=== PATIENT | female | born 1935 | race Caucasian/White ===

== ENCOUNTER 2017-03-14 09:40 | Emergency (ER) | payer MEDICARE ==
[2017-03-14 10:57] LABS: Basophils % (Auto) 0.3 % (0.0-1.8); Eosinophils % (Auto) 1.6 % (0.0-4.3); Hematocrit 38.4 % (30.3-42.9); Hemoglobin 12.8 gm/dl (10.1-14.3); Mean Corpuscular HGB Conc 33 % (30-34); Mean Corpuscular Hemoglobin 32 pg (28-32); Mean Corpuscular Volume 97 fl (79-97); Platelet Count 308 K/mm3 (140-440); Red Blood Count 3.97 M/mm3 (3.65-5.03); Red Cell Distribution Width 13.6 % (13.2-15.2); White Blood Count 5.9 K/mm3 (4.5-11.0)
[2017-03-14] MEDS ORDERED: KEPPRA 1,000 MG/NS 0.75% 100ML 1,000 MG/100 ML BAG IV ONE (11:06)
[2017-03-14] MEDS ORDERED: NACL 0.9% 1000 ML 1,000 ML IV ONE (11:06)
[2017-03-14 11:09] LABS: Bilirubin,Urine NEG (Negative); Blood,Urine NEG (Negative); Ketones,Urine NEG (Negative); Leukocyte Esterase,Urine NEG (Negative); Mucus,Urine FEW /HPF; Nitrite,Urine NEG (Negative); Protein,Urine <15 mg/dL mg/dL (Negative); Urobilinogen,Urine < 2.0 mg/dL (<2.0)
[2017-03-14 11:11] LABS: Albumin 3.7 g/dL (3.9-5); Albumin/Globulin Ratio 0.8 %; BUN/Creatinine Ratio 9.25; Bilirubin,Total 0.4 mg/dL (0.1-1.2); Calcium 9.8 mg/dL (8.4-10.2); Chloride 99.1 mmol/L (98-107); Potassium 3.7 mmol/L (3.6-5.0); Total Protein 8.1 g/dL (6.3-8.2)
--- NOTE | 2017-03-14 11:12 | Emergency Department Report ---
ED Seizure HPI - General Chief Complaint: Seizure Stated Complaint: SEIZURE Time Seen by Provider: 03/14/17 11:01 Source: patient, family, EMS Mode of arrival: Stretcher Limitations: Physical Limitation - History of Present Illness Initial Comments: 82-year-old female here with complaint of new onset seizure. According to son patient was not on wall and he went to her bedroom to see what was happening to her and he noticed that she was shaking. He describes a tonic-clonic shaking that lasted for approximately 5 minutes. After this she was difficult to arouse with sonorous respirations. She did urinate on herself. She complains of a mild headache. She's never had a seizure before. No recent trauma. No fevers chills. MD Complaint: seizure -: Sudden Description of Episode: loss of consciousness, tonic-clonic movement, bladder incontinence, post-event confusion -: minutes(s) Witnessed:: Yes Trauma: No Seizure History: none Place: home Possible Precipitating Event: none Associated Symptoms: confusion Treatments Prior to Arrival: none - Related Data Previous Rx's Medication Instructions Recorded Last Taken Type levETIRAcetam [Keppra TAB] 500 mg PO BID #60 tablet 03/14/17 Unknown Rx Allergies Allergy/AdvReac Type Severity Reaction Status Date / Time No Known Allergies Allergy Unverified 03/14/17 10:25 ED Review of Systems ROS: Stated complaint: SEIZURE Other details as noted in HPI Comment: All other systems reviewed and negative Constitutional: weakness. denies: chills, fever Eyes: denies: eye pain, eye discharge, vision change ENT: denies: ear pain, throat pain Respiratory: denies: cough, shortness of breath, wheezing Cardiovascular: denies: chest pain, palpitations Endocrine: no symptoms reported Gastrointestinal: denies: abdominal pain, nausea, diarrhea Genitourinary: denies: urgency, dysuria, discharge Musculoskeletal: denies: back pain, joint swelling, arthralgia Skin: denies: rash, lesions Neurological: headache. denies: weakness, paresthesias Psychiatric: denies: anxiety, depression Hematological/Lymphatic: denies: easy bleeding, easy bruising ED Past Medical Hx - Past Medical History Previous Medical History?: Yes Hx Congestive Heart Failure: Yes - Family History Family history: no significant - Social History Smoking Status: Never Smoker Substance Use Type: None - Medications Home Medications: Home Medications Medication Instructions Recorded Confirmed Last Taken Type levETIRAcetam [Keppra TAB] 500 mg PO BID #60 tablet 03/14/17 Unknown Rx ED Physical Exam - General Limitations: Physical Limitation General appearance: alert, in no apparent distress - Head Head exam: Present: atraumatic, normocephalic - Eye Eye exam: Present: normal appearance, PERRL, EOMI. Absent: scleral icterus - ENT ENT exam: Present: mucous membranes moist - Neck Neck exam: Present: normal inspection - Respiratory Respiratory exam: Present: normal lung sounds bilaterally. Absent: respiratory distress - Cardiovascular Cardiovascular Exam: Present: regular rate, normal rhythm, normal heart sounds. Absent: systolic murmur, diastolic murmur, rubs, gallop - GI/Abdominal GI/Abdominal exam: Present: soft, normal bowel sounds - Extremities Exam Extremities exam: Present: normal inspection - Back Exam Back exam: Present: normal inspection - Neurological Exam Neurological exam: Present: alert, oriented X3 - Psychiatric Psychiatric exam: Present: normal affect, normal mood - Skin Skin exam: Present: warm, dry, intact, normal color. Absent: rash ED Course Vital Signs 03/14/17 03/14/17 03/14/17 10:11 10:18 10:21 Temperature 98.4 F Pulse Rate 95 H 90 Respiratory 20 31 H Rate Blood Pressure 124/59 124/59 Blood Pressure 124/59 [Left] O2 Sat by Pulse 97 99 98 Oximetry 03/14/17 03/14/17 03/14/17 10:30 10:41 10:51 Temperature Pulse Rate 86 85 81 Respiratory 33 H 22 24 Rate Blood Pressure 118/57 118/57 118/57 Blood Pressure [Left] O2 Sat by Pulse 97 96 97 Oximetry 03/14/17 03/14/17 03/14/17 11:00 11:11 11:21 Temperature Pulse Rate 78 78 77 Respiratory 21 18 15 Rate Blood Pressure 117/61 117/61 117/61 Blood Pressure [Left] O2 Sat by Pulse 99 99 100 Oximetry 03/14/17 03/14/17 03/14/17 11:30 11:41 12:05 Temperature Pulse Rate 76 86 84 Respiratory 18 14 15 Rate Blood Pressure 117/57 117/57 117/57 Blood Pressure [Left] O2 Sat by Pulse 100 98 Oximetry 03/14/17 12:11 Temperature Pulse Rate 83 Respiratory 22 Rate Blood Pressure 117/57 Blood Pressure [Left] O2 Sat by Pulse 97 Oximetry ED Medical Decision Making - Lab Data Result diagrams: 03/14/17 10:40 03/14/17 10:40 Laboratory Results - last 24 hr 03/14/17 03/14/17 03/14/17 10:40 10:40 10:45 WBC 5.9 RBC 3.97 Hgb 12.8 Hct 38.4 MCV 97 MCH 32 MCHC 33 RDW 13.6 Plt Count 308 Lymph % (Auto) 28.3 [place] % (Auto) 13.5 H Eos % (Auto) 1.6 Baso % (Auto) 0.3 Lymph # 1.7 [place] # 0.8 Eos # 0.1 Baso # 0.0 Seg Neutrophils % 56.3 Seg Neutrophils # 3.3 Sodium 139 Potassium 3.7 Chloride 99.1 Carbon Dioxide 18 L Anion Gap 26 BUN 25 H Creatinine 2.7 H Estimated GFR 17 BUN/Creatinine Ratio 9.25 Glucose 112 H Calcium 9.8 Total Bilirubin 0.40 AST 20 ALT 12 Alkaline Phosphatase 51 Total Protein 8.1 Albumin 3.7 L Albumin/Globulin Ratio 0.8 Urine Color Yellow Urine Turbidity Clear Urine pH 5.0 Ur Specific [place] 1.020 Urine Protein <15 mg/dl Urine Glucose (UA) Neg Urine Ketones Neg Urine Blood Neg Urine Nitrite Neg Urine Bilirubin Neg Urine Urobilinogen < 2.0 Ur Leukocyte Esterase Neg Urine WBC (Auto) 1.0 Urine RBC (Auto) 1.0 U Epithel Cells (Auto) < 1.0 Hyaline Casts 5 Urine Mucus Few - EKG Data -: EKG Interpreted by Me - EKG Data 03/14/17 11:14 Sinus rate A7 normal axis normal intervals poor R-wave progression occasional PAC no ST segment changes she does have T-wave inversions in lead III - Medical Decision Making 82-year-old female here with new onset seizure. She's never had a seizure before. Exam here is unremarkable. No fevers chills nausea vomiting. Plan the head CT disc labs UA and anticipated admission given new onset seizure and 80-year-old. Workup unremarkable. Patient does have an elevated creatinine. Discussed with the patient and she has a known history of chronic renal insufficiency. Her head CT shows some chronic changes with age but nothing acute. Patient was an 80-year-old female with first-time seizure. She has no obvious precipitating cause. Head CT negative. Plan to discharge her home with follow- up to neurology. Plan to discharge the patient on oral Keppra. Portions of this chart were dictated with dictation software. There may be dictation errors contained within this note. Critical care attestation.: If time is entered above; I have spent that time in minutes in the direct care of this critically ill patient, excluding procedure time. ED Disposition Clinical Impression: Seizure Disposition: DC-01 TO HOME OR SELFCARE Is pt being admited?: No Condition: Stable Instructions: New-Onset Seizure in Adults (ED) Prescriptions: levETIRAcetam [Keppra TAB] 500 mg PO BID #60 tablet Referrals: PRIMARY CARE, [Primary Care Provider] - 3-5 Days BEN LAMBERT MD [Staff Physician] - 3-5 Days
--- NOTE | 2017-03-14 12:50 | Cat Scan Report ---
CT HEAD WITHOUT CONTRAST: HISTORY: Seizure. TECHNIQUE: Sequential CT images without contrast. FINDINGS: Non-contrast CT of the head is submitted demonstrating central and cortical atrophy. There are low density changes in the periventricular white matter. There is no intracranial hemorrhage or mass effect. There is no shift of the midline. Basilar cisterns are patent. The included portions of the paranasal sinuses and mastoid air cells are clear. IMPRESSION: Senescent changes as noted. No acute intracranial process.
[2017-03-14 16:07] VITALS: BP 120/64
== END 2017-03-14 16:15 | disposition home or self-care (01) ==
LOC: EDSEX → ED 09:40
DX: R56.9 Unspecified convulsions (principal); I50.9 Heart failure, unspecified
CPT/HCPCS: 36415; 70450; 80053; 81001; 84484; 85025; 93005; 93010; 96361; 96374; 99285; G0480; J1953; J7030; 80320

== ENCOUNTER 2018-04-21 11:00 | Inpatient (IN) | payer MEDICARE ==
[2018-04-21] MEDS ORDERED: CARDIZEM IV ONE (11:25)
[2018-04-21 11:39] LABS: Basophils % (Auto) 0.6 % (0.0-1.8); Eosinophils # (Auto) 0.1 K/mm3 (0.0-0.4); Eosinophils % (Auto) 1.9 % (0.0-4.3); Hematocrit 42.9 % (30.3-42.9); Hemoglobin 14.5 gm/dl (10.1-14.3); Lymphocytes # (Auto) 1.9 K/mm3 (1.2-5.4); Lymphocytes % (Auto) 39.1 % (13.4-35.0); Mean Corpuscular HGB Conc 34 % (30-34); Mean Corpuscular Hemoglobin 33 pg (28-32); Mean Corpuscular Volume 97 fl (79-97); Monocytes # (Auto) 0.5 K/mm3 (0.0-0.8); Platelet Count 263 K/mm3 (140-440); Red Blood Count 4.41 M/mm3 (3.65-5.03)
[2018-04-21 11:49] LABS: INR 3.56 (0.87-1.13)
[2018-04-21 11:50] LABS: Partial Thromboplastin Time 45.6 Sec. (24.2-36.6)
--- NOTE | 2018-04-21 11:54 | Emergency Department Report ---
HPI - General Time Seen by Provider: 04/21/18 11:16 - HPI HPI: 83 year-old female presents the emergency department by EMS from home with complaint of atrial fibrillation with RVR and some altered mental status. The patient is able to tell me her name and will follow some commands but does appear confused. There is a history of atrial fibrillation with RVR and CHF. The patient's daughter later came bedside and says that the patient has been having some falls, episodes of passing out or nearly passing out and some confusion since yesterday. He had one episode where she fell and questionably hit her head yesterday. This morning, the patient's daughter says that the patient suddenly started acting confused and had 2 episodes where she almost passed out and the daughter had to catch her. She then called EMS. 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 The family says that the patient would usually know the year and the president. ED Past Medical Hx - Past Medical History Hx Congestive Heart Failure: Yes - Social History Smoking Status: Never Smoker Substance Use Type: None - Medications Home Medications: Home Medications Medication Instructions Recorded Confirmed Last Taken Type Aspirin [Aspirin EC] 81 mg PO DAILY 04/21/18 04/21/18 Unknown History Cyanocobalamin (Vitamin B-12) 1,000 mcg PO DAILY 04/21/18 04/21/18 Unknown History [Vitamin B-12] Digoxin [Lanoxin] 0.125 mg PO DAILY 04/21/18 04/21/18 Unknown History Furosemide [Lasix] 20 mg PO QDAY 04/21/18 04/21/18 Unknown History Metoprolol [Lopressor] 100 mg PO DAILY 04/21/18 04/21/18 Unknown History Ondansetron [Zofran Odt] 4 mg PO Q8HR 04/21/18 04/21/18 Unknown History Ranitidine HCl [Zantac 150 MG TAB] 150 mg PO BID 04/21/18 04/21/18 Unknown History Sodium Bicarbonate 325 mg PO DAILY 04/21/18 04/21/18 Unknown History Warfarin Sodium [Coumadin] 3 mg PO QDAY 04/21/18 04/21/18 Unknown History ED Review of Systems ROS: Stated complaint: DIZZY/A FIB Other details as noted in HPI Comment: Unobtainable due to pts medical conditions Neurological: confusion Physical Exam - Physical Exam Physical Exam: GENERAL: The patient is well-developed well-nourished. HENT: Normocephalic. Atraumatic. Patient has moist mucous membranes. EYES: Extraocular motions are intact. Pupils equal reactive to light bilaterally. NECK: Supple. Trachea is midline. CHEST/LUNGS: Clear to auscultation. There is no respiratory distress noted. HEART/CARDIOVASCULAR: Irregular rhythm with rapid heart rate. ABDOMEN: Abdomen is soft, nontender. Patient has normal bowel sounds. There is no abdominal distention. SKIN: Skin is warm and dry. NEURO: The patient is awake and cooperative but confused. She is oriented to person but not place or time. She is unaware of the current president. Patient has some tangential and rambling thoughts/speech. MUSCULOSKELETAL: There is no tenderness or deformity. There is no limitation range of motion. There is no evidence of acute injury. ED Medical Decision Making - Lab Data Result diagrams: 04/21/18 11:21 04/21/18 11:21 - EKG Data -: EKG Interpreted by Me - EKG Data When compared to previous EKG there are: changes noted (previous EKG shows sinus rhythm with PVCs) Interpretation: other (atrial fibrillation, rate of 94, normal axis, normal intervals, Q waves to the septal leads) - Radiology Data Radiology results: report reviewed, image reviewed interpreted by me: Chest x-ray does not show any acute process. There are no pleural effusions, obvious pneumonia and there is no pneumothorax. EXAM: CT HEAD/BRAIN WO CON HISTORY: AMS TECHNIQUE: CT of the Head without IV contrast. PRIORS: None currently available. FINDINGS: Decreased attenuation regions in the periventricular and subcortical white matter are nonspecific and may represent small vessel ischemic disease, encephalopathy, edema, or a demyelinating process. Small vessel ischemic disease (leukoaroaiosis) favored. Vascular calcifications. There is no evidence for acute ischemia. There is no hemorrhage. There is no midline shift. There is no hydrocephalus. There is no mass. Age appropriate calvillo-white matter attenuation is noted. Psri-pm-xlsjaojc atrophy. Senescent bilateral basal ganglia calcifications. There is no calvarial fracture. The temporal bones demonstrate aerated mastoid air cells. The middle ears appear unremarkable. Moderate mucosal thickening in the left maxillary sinus. Mild mucosal thickening in both ethmoid sinuses. Globes are intact. IMPRESSION: No acute intracranial findings. Chronic ischemic disease. Atrophy, mild to moderate. Transcribed By: TYM Dictated By: CHIP HOYT MD Electronically Authenticated By: CHIP HOYT MD Signed Date/Time: 04/21/18 1313 - Medical Decision Making Patient came in with atrial fibrillation with RVR and altered mental status and confusion. The patient's rapid rate was Waxing and waning but she was given a dose of Cardizem and the rate now appears controlled but she is still in atrial fibrillation, which he appears to be chronically. She is anticoagulated and slightly supratherapeutic on her Coumadin. CT of the head did not show any bleed, shift, mass or any other acute process. The daughter confirms that the patient is confused from her baseline but she has been having some transient confusion and some episodes of passing out or nearly passing out, over the past 24 hours. For this reason, even if the patient were to have a CVA as the cause of her confusion, she would not be a TPA candidate as there is no last known well time and it seems to have been going on since at least yesterday. However the patient's main deficit is her confusion. We are awaiting urine for urinalysis and drug screen. She is subtherapeutic on her digoxin, has some renal insufficiency with an alleged history of chronic kidney disease. She will be admitted to the hospital for further evaluation and treatment and was accepted for admission by the hospitalist, Dr. Marie. - Differential Diagnosis dysrhythmia, CVA, TIA, UTI, dementia Critical Care Time: No Critical care attestation.: If time is entered above; I have spent that time in minutes in the direct care of this critically ill patient, excluding procedure time. ED Disposition Clinical Impression: Atrial fibrillation with RVR Altered mental status Qualifiers: Altered mental status type: unspecified Qualified Code(s): R41.82 - Altered mental status, unspecified Disposition: -09 OP ADMIT IP TO THIS HOSP Is pt being admited?: Yes Condition: Serious Referrals: PRIMARY CARE, [Primary Care Provider] - 3-5 Days Time of Disposition: 14:23
[2018-04-21 11:57] LABS: Alanine Aminotransferase 12 units/L (7-56); Albumin 3.7 g/dL (3.9-5); BUN/Creatinine Ratio 8; Blood Urea Nitrogen 16 mg/dL (7-17); Calcium 9.6 mg/dL (8.4-10.2); Hemolysis Index 15
--- NOTE | 2018-04-21 13:09 | XRay Report ---
AP CHEST: HISTORY: chest pain AP view of the chest demonstrates a normal mediastinal and cardiac contour with clear lungs and normal bony and soft tissue structures. IMPRESSION: Unremarkable AP chest.
--- NOTE | 2018-04-21 13:14 | Cat Scan Report ---
FINAL REPORT EXAM: CT HEAD/BRAIN WO CON HISTORY: AMS TECHNIQUE: CT of the Head without IV contrast. PRIORS: None currently available. FINDINGS: Decreased attenuation regions in the periventricular and subcortical white matter are nonspecific and may represent small vessel ischemic disease, encephalopathy, edema, or a demyelinating process. Small vessel ischemic disease (leukoaroaiosis) favored. Vascular calcifications. There is no evidence for acute ischemia. There is no hemorrhage. There is no midline shift. There is no hydrocephalus. There is no mass. Age appropriate calvillo-white matter attenuation is noted. Tbpy-rl-fajaglks atrophy. Senescent bilateral basal ganglia calcifications. There is no calvarial fracture. The temporal bones demonstrate aerated mastoid air cells. The middle ears appear unremarkable. Moderate mucosal thickening in the left maxillary sinus. Mild mucosal thickening in both ethmoid sinuses. Globes are intact. IMPRESSION: No acute intracranial findings. Chronic ischemic disease. Atrophy, mild to moderate.
--- NOTE | 2018-04-21 14:02 | History and Physical Report ---
History of Present Illness Chief complaint: I got dizzy, and i passed out History of present illness: 83 YO Female with Atrial Fib on therapeutic anticoagulation, CHF, CKD presents to ED for evaluation. Pt states that she has experienced weakness, multiple episodes of dizziness and near syncope over the past 1 day and subsequently lost consciousness today. EMS notified and upon arrival the patient was found to have Atrial Fib with RVR. Pt transported to [facility] for further care and evaluation. Pt seen and evaluated in ED and found to have Atrial Fib with RVR, as well as symptoms consistent with Diastolic CHF. Pt admitted to telemetry, and Cardiology team consulted in ED. Pt denies fever, chills, CP, NVD, Trauma, Palpitatons, BRBPR, Unintentional weight loss, night sweats, bone pain, productive cough, or recent ill contacts. Pt has also experienced episodes of bradycardia on digoxin resulting in dizziness and near syncope. Her dose has been held as per her physician. Pt subsequently developed Atrial fib with RVR. Past History Past Medical History: atrial fib, heart failure, renal failure Past Surgical History: No surgical history Social history: single, lives with family. denies: smoking, alcohol abuse, prescription drug abuse Family history: hypertension Medications and Allergies Allergies Allergy/AdvReac Type Severity Reaction Status Date / Time No Known Allergies Allergy Unverified 03/14/17 10:25 Home Medications Medication Instructions Recorded Confirmed Last Taken Type Aspirin [Aspirin EC] 81 mg PO DAILY 04/21/18 04/21/18 Unknown History Cyanocobalamin (Vitamin B-12) 1,000 mcg PO DAILY 04/21/18 04/21/18 Unknown History [Vitamin B-12] Digoxin [Lanoxin] 0.125 mg PO DAILY 04/21/18 04/21/18 Unknown History Furosemide [Lasix] 20 mg PO QDAY 04/21/18 04/21/18 Unknown History Metoprolol [Lopressor] 100 mg PO DAILY 04/21/18 04/21/18 Unknown History Ondansetron [Zofran Odt] 4 mg PO Q8HR 04/21/18 04/21/18 Unknown History Ranitidine HCl [Zantac 150 MG TAB] 150 mg PO BID 04/21/18 04/21/18 Unknown History Sodium Bicarbonate 325 mg PO DAILY 04/21/18 04/21/18 Unknown History Warfarin Sodium [Coumadin] 3 mg PO QDAY 04/21/18 04/21/18 Unknown History Review of Systems Constitutional: weakness, no weight loss, no weight gain, no fever, no chills Ears, nose, mouth and throat: no ear pain, no ear discharge, no tinnitis, no decreased hearing, no nose pain, no nasal congestion Breasts: no change in shape, no swelling, no mass Cardiovascular: syncope, no chest pain, no orthopnea, no palpitations, no rapid/ irregular heart beat, no edema Respiratory: no cough, no cough with sputum, no excessive sputum, no hemoptysis , no shortness of breath Gastrointestinal: no nausea, no vomiting, no diarrhea, no constipation, no change in bowel habits Genitourinary Female: no pelvic pain, no flank pain, no menorrhagia, no dysuria , no urinary frequency, no urgency Rectal: no pain, no incontinence, no bleeding Musculoskeletal: no neck stiffness, no neck pain, no shooting arm pain, no arm numbness/tingling, no low back pain, no shooting leg pain Integumentary: no rash, no pruritis, no redness, no sores, no wounds Neurological: no transient paralysis, no paralysis, no weakness, no parathesias , no numbness, no tingling, no seizures Psychiatric: no anxiety, no memory loss, no change in sleep habits, no sleep disturbances, no insomnia, no hypersomnia, no change in appetite Endocrine: no cold intolerance, no heat intolerance, no polyphagia, no excessive thirst, no polydipsia, no polyuria, no nocturia Hematologic/Lymphatic: no easy bruising, no easy bleeding, no lymphadenopathy, no lymphedema Allergic/Immunologic: no urticaria, no allergic rhinitis, no persistent infections, no anaphylaxis, no angioedema Exam - Constitutional Vitals: Temp Pulse Resp BP Pulse Ox 98.2 F 104 H 18 149/80 99 04/21/18 11:59 04/21/18 11:59 04/21/18 11:59 04/21/18 11:59 04/21/18 11:59 General appearance: Present: mild distress - EENT Eyes: Present: PERRL ENT: hearing intact, clear oral mucosa - Neck Neck: Present: supple, normal ROM - Respiratory Respiratory effort: normal Respiratory: bilateral: CTA - Cardiovascular Rhythm: irregularly irregular Heart Sounds: Present: S1 & S2. Absent: rub, click - Extremities Extremities: pulses symmetrical, No edema Peripheral Pulses: within normal limits - Abdominal General gastrointestinal: Present: soft, non-tender, non-distended, normal bowel sounds Female genitourinary: Present: normal - Integumentary Integumentary: Present: clear, warm, dry - Musculoskeletal Musculoskeletal: gait normal, strength equal bilaterally - Psychiatric Psychiatric: appropriate mood/affect, intact judgment & insight - Neurologic Neurologic: CNII-XII intact, no focal deficits, moves all extremities, gait normal Results - Labs CBC & Chem 7: 04/21/18 11:21 04/21/18 11:21 Labs: Abnormal lab results 04/21/18 04/21/18 04/21/18 Range/Units 11:21 11:21 11:21 Hgb 14.5 H (10.1-14.3) gm/dl MCH 33 H (28-32) pg RDW 16.0 H (13.2-15.2) % Lymph % (Auto) 39.1 H (13.4-35.0) % [place] % (Auto) 11.0 H (0.0-7.3) % PT 36.1 H (12.2-14.9) Sec. INR 3.56 H (0.87-1.13) APTT 45.6 H (24.2-36.6) Sec. Sodium 136 L (137-145) mmol/L Potassium 3.5 L (3.6-5.0) mmol/L Chloride 97.0 L (98-107) mmol/L Creatinine 1.9 H (0.7-1.2) mg/dL Glucose 117 H (65-100) mg/dL Albumin 3.7 L (3.9-5) g/dL Digoxin (0.9-2.0) ng/mL 04/21/18 Range/Units 11:21 Hgb (10.1-14.3) gm/dl MCH (28-32) pg RDW (13.2-15.2) % Lymph % (Auto) (13.4-35.0) % [place] % (Auto) (0.0-7.3) % PT (12.2-14.9) Sec. INR (0.87-1.13) APTT (24.2-36.6) Sec. Sodium (137-145) mmol/L Potassium (3.6-5.0) mmol/L Chloride (98-107) mmol/L Creatinine (0.7-1.2) mg/dL Glucose (65-100) mg/dL Albumin (3.9-5) g/dL Digoxin 0.6 L (0.9-2.0) ng/mL Assessment and Plan - Patient Problems (1) CHF (congestive heart failure) Current Visit: Yes Status: Acute Qualifiers: Heart failure type: diastolic Heart failure chronicity: acute on chronic Qualified Code(s): I50.33 - Acute on chronic diastolic (congestive) heart failure Plan to address problem: Admit to telemetry, BNP, Chest x ray, strict I/O, Thyroid Panel, serial ekg, cardiology consulted in ED, echo, (2) Syncope Current Visit: Yes Status: Acute Plan to address problem: Cardiogenic syncope: admit to telemetry, CT head, neuro checks, supportive care. (3) Atrial fibrillation with RVR Current Visit: Yes Status: Acute Plan to address problem: Rate control, telemetry monitoring, resume digoxin, continue therapeutic anticoagulation with pharmacy consulted for dosing, INR goal betweeen 2-3, coagulation profile. (4) ARF (acute renal failure) with tubular necrosis Current Visit: Yes Status: Acute Plan to address problem: IVF resuscitation, monitor uop q shift, urine electrolytes, renal ultrasound, repeat bmp in am to evaluate serum creatnine (5) DVT prophylaxis Current Visit: Yes Status: Acute Plan to address problem: SCD to BLE while in bed.
[2018-04-21] MEDS ORDERED: LANOXIN IV ONE (14:03)
[2018-04-21] MEDS ORDERED: SODIUM CHLORIDE FLUSH SYRINGE 10 ML IV PRN (14:04)
[2018-04-21] MEDS ORDERED: ZOFRAN IV PRN (14:04)
[2018-04-21] MEDS ORDERED: PROVENTIL IH PRN (14:04)
[2018-04-21] MEDS ORDERED: TYLENOL PO PRN (14:04)
[2018-04-21 15:36] LABS: Free T4 (Free Thyroxine) 1.25 ng/dL (0.76-1.46)
[2018-04-21] MEDS ORDERED: PEPCID PO SCH (17:00)
[2018-04-21] MEDS ORDERED: COUMADIN NO DOSE TODAY PO ONE (17:00)
[2018-04-21] MEDS ORDERED: NON-FORMULARY (Ranitidine Hcl [Zantac 150 Mg Tab] 150 MG) PO SCH (22:00)
[2018-04-21] MEDS: ZOFRAN ODT PO SCH (22:50)
[2018-04-21] MEDS: SODIUM CHLORIDE FLUSH SYRINGE 10 ML IV SCH (22:50)
[2018-04-21] MEDS: PEPCID PO SCH (22:50)
[2018-04-22 04:51] LABS: INR 3.65 (0.87-1.13)
[2018-04-22] MEDS: ZOFRAN ODT PO SCH ×3 (06:13→21:55)
[2018-04-22 06:39] LABS: Creatinine,Urine 355.7 mg/dL (0.1-20.0)
[2018-04-22 06:41] LABS: Bilirubin,Urine NEG (Negative); Blood,Urine NEG (Negative); Color,Urine Yellow (Yellow); Hyaline Casts,Urine 13 /LPF; Mucus,Urine FEW /HPF; Protein,Urine <15 mg/dL mg/dL (Negative); Urobilinogen,Urine < 2.0 mg/dL (<2.0)
[2018-04-22 06:45] LABS: Benzodiazepines Screen,Urine PRESUMPTIVE NEGATIVE; Cannabinoid Screen,Urine PRESUMPTIVE NEGATIVE; Cocaine Screen,Urine PRESUMPTIVE NEGATIVE; Methadone Screen,Urine PRESUMPTIVE NEGATIVE; Opiate Screen,Urine PRESUMPTIVE NEGATIVE
[2018-04-22 06:58] LABS: Amphetamine Screen,Urine PRESUMPTIVE POSITIVE
[2018-04-22 07:44] LABS: Calcium 9.6 mg/dL (8.4-10.2)
[2018-04-22] MEDS ORDERED: NON-FORMULARY (Warfarin Sodium [Coumadin] 3 MG) PO SCH (10:00)
--- NOTE | 2018-04-22 11:01 | Consultation ---
History of Present Illness - Reason for Consult Consult date: 04/22/18 chronic renal failure - History of Present Illness Mrs. Yeh is an 83yo with atrial fibrillation who presented to the ED via EMS with hx of dizziness. EMS was called to patient's home and upon arrival, patient was in afib with RVR. She denies weakness, chest pain, palpitations and SOB. Labs at admission notable for SCr 1.9mg/dL. She denies a prior history of kidney disease. However, review of records notable for SCr 2.7mg/dL in 2017. Past History Past Medical History: atrial fib, heart failure, renal failure Past Surgical History: No surgical history Social history: single, lives with family. denies: smoking, alcohol abuse, prescription drug abuse Family history: hypertension Medications and Allergies Allergies Allergy/AdvReac Type Severity Reaction Status Date / Time No Known Allergies Allergy Unverified 03/14/17 10:25 Home Medications Medication Instructions Recorded Confirmed Last Taken Type Aspirin [Aspirin EC] 81 mg PO DAILY 04/21/18 04/21/18 Unknown History Cyanocobalamin (Vitamin B-12) 1,000 mcg PO DAILY 04/21/18 04/21/18 Unknown History [Vitamin B-12] Digoxin [Lanoxin] 0.125 mg PO DAILY 04/21/18 04/21/18 Unknown History Furosemide [Lasix] 20 mg PO QDAY 04/21/18 04/21/18 Unknown History Metoprolol [Lopressor] 100 mg PO DAILY 04/21/18 04/21/18 Unknown History Ondansetron [Zofran Odt] 4 mg PO Q8HR 04/21/18 04/21/18 Unknown History Ranitidine HCl [Zantac 150 MG TAB] 150 mg PO BID 04/21/18 04/21/18 Unknown History Sodium Bicarbonate 325 mg PO DAILY 04/21/18 04/21/18 Unknown History Warfarin Sodium [Coumadin] 3 mg PO QDAY 04/21/18 04/21/18 Unknown History Active Meds: Active Medications Acetaminophen (Tylenol) 650 mg PO Q4H PRN PRN Reason: Pain MILD(1-3)/Fever >100.5/LR Albuterol (Proventil) 2.5 mg IH Q4HRT PRN PRN Reason: Shortness Of Breath Aspirin (Halfprin Ec) 81 mg PO DAILY [facility] Cyanocobalamin (Vitamin B-12) 1,000 mcg PO DAILY [facility] Digoxin (Lanoxin) 0.125 mg PO DAILY@1700 [facility] Famotidine (Pepcid) 20 mg PO DAILY [facility] Last Admin: 04/21/18 22:50 Dose: 20 mg Metoprolol Tartrate (Lopressor) 100 mg PO DAILY [facility] Ondansetron HCl (Zofran) 4 mg IV Q8H PRN PRN Reason: Nausea And Vomiting Ondansetron HCl (Zofran Odt) 4 mg PO Q8HR [facility] Last Admin: 04/22/18 06:13 Dose: 4 mg Sodium Bicarbonate (Sodium Bicarbonate) 325 mg PO DAILY [facility] Sodium Chloride (Sodium Chloride Flush Syringe 10 Ml) 10 ml IV BID [facility] Last Admin: 04/21/18 22:50 Dose: 10 ml Sodium Chloride (Sodium Chloride Flush Syringe 10 Ml) 10 ml IV PRN PRN PRN Reason: LINE FLUSH Review of Systems All systems: negative Exam - Vital Signs Vital signs: Vital Signs Pulse 109 H 04/21/18 11:04 - General Appearance General appearance: well-developed, well-nourished EENT: ATNC Respiratory: Clear to Ascultation Heart: irregular Gastrointestinal: Present: normal. Absent: tenderness, distended Integumentary: no rash Neurologic: no focal deficit Musculoskeletal: Present: other (no edema) Psychiatric: cooperative Results - Lab Results 04/21/18 11:21 04/22/18 06:49 Most recent lab results Calcium 9.6 mg/dL (8.4-10.2) 04/22/18 06:49 Urine Creatinine 355.7 mg/dL (0.1-20.0) H 04/22/18 06:10 Urine Sodium 30 mmol/L 04/22/18 06:10 Assessment and Plan Impression: * Stage IV chronic kidney disease --SCr 2.7mg/cL, eGFR 17ml/min (2017) * Atrial fibrillation with RVR * Hyponatremia * Metabolic acidosis Plan: * No acute indication for renal replacement therapy * Rate control/optimization of cardiac function per cardiology * Will obtain urine studies and renal ultrasound * Avoid potential nephrotoxins * Dose medications for renal function
[2018-04-22] MEDS: HALFPRIN EC PO SCH (11:31)
[2018-04-22] MEDS: SODIUM BICARBONATE PO SCH (11:31)
[2018-04-22] MEDS: PEPCID PO SCH (11:31)
[2018-04-22] MEDS: LOPRESSOR PO SCH (11:32)
[2018-04-22] MEDS: VITAMIN B-12 PO SCH (11:32)
[2018-04-22] MEDS: SODIUM CHLORIDE FLUSH SYRINGE 10 ML IV SCH ×2 (11:32→21:55)
--- NOTE | 2018-04-22 12:00 | Progress Note ---
Assessment and Plan Assessment and plan: 83 YO Female with Atrial Fib on therapeutic anticoagulation, CHF, CKD presents to ED for evaluation. Pt states that she has experienced weakness, multiple episodes of dizziness and near syncope over the past 1 day and subsequently lost consciousness today. EMS notified and upon arrival the patient was found to have Atrial Fib with RVR. Pt transported to [facility] for further care and evaluation. Pt seen and evaluated in ED and found to have Atrial Fib with RVR, as well as symptoms consistent with Diastolic CHF. Pt admitted to telemetry, and Cardiology team consulted in ED. Pt denies fever, chills, CP, NVD, Trauma, Palpitatons, BRBPR, Unintentional weight loss, night sweats, bone pain, productive cough, or recent ill contacts. Pt has also experienced episodes of bradycardia on digoxin resulting in dizziness and near syncope. Her dose has been held as per her physician. Pt subsequently developed Atrial fib with RVR. Afib with rvr CKD Syncope Acute kidney injury on chronic kidney disease secondary to vasomotor nephropathy Systolic congestive heart failure chronic stable Secondary Hypercoagulable state Symptomatic tachybrady syndrom with repeated falls Hyponatremia Plan Continue supportive care Nephrology With cardiology input Medication including digoxin Continue Coumadin with pharmacy dosing. May need to be held today due to supratherapeutic INR DVT and GI prophylaxis The records from [facility] in the a.m. History Interval history: Patient seen and examined this morning appears confused based on history. Although reports improvement in clinical status denies any dizziness at this time. Hospitalist Physical - Physical exam Narrative exam: VITAL SIGNS: Reviewed. GENERAL: The patient appeared well nourished and normally developed. Vital signs as documented. HEAD: No signs of head trauma. EYES: Pupils are equal. Extraocular motions intact. EARS: Hearing grossly intact. MOUTH: Oropharynx is normal. NECK: No adenopathy, no JVD. CHEST: Chest with clear breath sounds bilaterally. No wheezes, rales, or rhonchi. CARDIAC: Irregular rate and rhythm. S1 and S2, without murmurs, gallops, or rubs. VASCULAR: No Edema. Peripheral pulses normal and equal in all extremities. ABDOMEN: Soft, without detectable tenderness. No sign of distention. No rebound or guarding, and no masses palpated. Bowel Sounds normal. MUSCULOSKELETAL: Good range of motion of all major joints. Extremities without clubbing, cyanosis or edema. NEUROLOGIC EXAM: Alert and oriented x [address] No focal sensory or strength deficits. Speech normal. Follows commands. PSYCHIATRIC: Mood normal. SKIN: No rash or lesions. - Constitutional Vitals: Temp Pulse Resp BP Pulse Ox 97.4 F L 53 L 18 132/63 100 04/22/18 08:32 04/22/18 11:32 04/22/18 07:30 04/22/18 07:30 04/22/18 07:30 General appearance: Present: mild distress Results - Labs CBC & Chem 7: 04/21/18 11:21 04/22/18 06:49 Labs: Laboratory Last Values WBC 4.8 K/mm3 (4.5-11.0) 04/21/18 11:21 RBC 4.41 M/mm3 (3.65-5.03) 04/21/18 11:21 Hgb 14.5 gm/dl (10.1-14.3) H 04/21/18 11:21 Hct 42.9 % (30.3-42.9) 04/21/18 11:21 MCV 97 fl (79-97) 04/21/18 11:21 MCH 33 pg (28-32) H 04/21/18 11:21 MCHC 34 % (30-34) 04/21/18 11:21 RDW 16.0 % (13.2-15.2) H 04/21/18 11:21 Plt Count 263 K/mm3 (140-440) 04/21/18 11:21 Lymph % (Auto) 39.1 % (13.4-35.0) H 04/21/18 11:21 [place] % (Auto) 11.0 % (0.0-7.3) H 04/21/18 11:21 Eos % (Auto) 1.9 % (0.0-4.3) 04/21/18 11:21 Baso % (Auto) 0.6 % (0.0-1.8) 04/21/18 11:21 Lymph # 1.9 K/mm3 (1.2-5.4) 04/21/18 11:21 [place] # 0.5 K/mm3 (0.0-0.8) 04/21/18 11:21 Eos # 0.1 K/mm3 (0.0-0.4) 04/21/18 11:21 Baso # 0.0 K/mm3 (0.0-0.1) 04/21/18 11:21 Seg Neutrophils % 47.4 % (40.0-70.0) 04/21/18 11:21 Seg Neutrophils # 2.3 K/mm3 (1.8-7.7) 04/21/18 11:21 PT 36.8 Sec. (12.2-14.9) H 04/22/18 03:09 INR 3.65 (0.87-1.13) H 04/22/18 03:09 APTT 45.6 Sec. (24.2-36.6) H 04/21/18 11:21 Sodium 131 mmol/L (137-145) L 04/22/18 06:49 Potassium 4.6 mmol/L (3.6-5.0) D 04/22/18 06:49 Chloride 99.4 mmol/L (98-107) 04/22/18 06:49 Carbon Dioxide 20 mmol/L (22-30) L 04/22/18 06:49 Anion Gap 16 mmol/L 04/22/18 06:49 BUN 18 mg/dL (7-17) H 04/22/18 06:49 Creatinine 2.0 mg/dL (0.7-1.2) H 04/22/18 06:49 Estimated GFR 24 ml/min 04/22/18 06:49 BUN/Creatinine Ratio 9 % 04/22/18 06:49 Glucose 85 mg/dL (65-100) 04/22/18 06:49 Calcium 9.6 mg/dL (8.4-10.2) 04/22/18 06:49 Total Bilirubin 0.60 mg/dL (0.1-1.2) 04/21/18 11:21 AST 23 units/L (5-40) 04/21/18 11:21 ALT 12 units/L (7-56) 04/21/18 11:21 Alkaline Phosphatase 73 units/L (35-129) 04/21/18 11:21 Troponin T < 0.010 ng/mL (0.00-0.029) 04/21/18 18:31 NT-Pro-B Natriuret Pep 1787 pg/mL (0-900) H 04/21/18 14:50 Total Protein 7.9 g/dL (6.3-8.2) 04/21/18 11:21 Albumin 3.7 g/dL (3.9-5) L 04/21/18 11:21 Albumin/Globulin Ratio 0.9 % 04/21/18 11:21 TSH 0.590 mlU/mL (0.270-4.200) 04/21/18 14:50 Free T4 1.25 ng/dL (0.76-1.46) 04/21/18 14:50 Urine Color Yellow (Yellow) 04/22/18 06:10 Urine Turbidity Slightly-cloudy (Clear) 04/22/18 06:10 Urine pH 5.0 (5.0-7.0) 04/22/18 06:10 Ur Specific [place] 1.016 (1.003-1.030) 04/22/18 06:10 Urine Protein <15 mg/dl mg/dL (Negative) 04/22/18 06:10 Urine Glucose (UA) Neg mg/dL (Negative) 04/22/18 06:10 Urine Ketones Neg mg/dL (Negative) 04/22/18 06:10 Urine Blood Neg (Negative) 04/22/18 06:10 Urine Nitrite Neg (Negative) 04/22/18 06:10 Urine Bilirubin Neg (Negative) 04/22/18 06:10 Urine Urobilinogen < 2.0 mg/dL (<2.0) 04/22/18 06:10 Ur Leukocyte Esterase Sm (Negative) 04/22/18 06:10 Urine WBC (Auto) 7.0 /HPF (0.0-6.0) H 04/22/18 06:10 Urine RBC (Auto) 5.0 /HPF (0.0-6.0) 04/22/18 06:10 U Epithel Cells (Auto) 22.0 /HPF (0-13.0) H 04/22/18 06:10 Hyaline Casts 13 /LPF 04/22/18 06:10 Urine Mucus Few /HPF 04/22/18 06:10 Urine Creatinine 355.7 mg/dL (0.1-20.0) H 04/22/18 06:10 Urine Sodium 30 mmol/L 04/22/18 06:10 Digoxin 0.6 ng/mL (0.9-2.0) L 04/21/18 11:21 Urine Opiates Screen Presumptive negative 04/22/18 06:10 Urine Methadone Screen Presumptive negative 04/22/18 06:10 Ur Barbiturates Screen Presumptive negative 04/22/18 06:10 Ur Phencyclidine Scrn Presumptive negative 04/22/18 06:10 Ur Amphetamines Screen Presumptive positive 04/22/18 06:10 U Benzodiazepines Scrn Presumptive negative 04/22/18 06:10 Urine Cocaine Screen Presumptive negative 04/22/18 06:10 U Marijuana (THC) Screen Presumptive negative 04/22/18 06:10 Drugs of Abuse Note Disclamer 04/22/18 06:10
[2018-04-22] MEDS: LANOXIN PO SCH (19:00)
--- NOTE | 2018-04-22 21:29 | Consultation ---
CARDIOLOGY CONSULTATION Please refer this letter to Dr. Conrad. REASON FOR CONSULTATION: Evaluation of atrial fibrillation with episodes of falls. HISTORY OF PRESENT ILLNESS: The patient is an 83-year-old -[place] female usually followed at [facility], who was brought to the Emergency Room by EMS with complaints of lightheadedness and falls. Apparently, she has episodes of confusion. She had 1 episode where she fell and questionably hit head day before presentation to the Emergency Room. At this time, the patient's daughter is not available. History is obtained from the ER documentation. Apparently, she has a history of confusion, but it got worse recently. Telemetry done at the time of admission showed atrial fibrillation with rapid ventricular response up to [address] of the head was performed in the Emergency Room, which showed vascular calcifications. No evidence of acute ischemia, no hemorrhage. Subsequently, she was admitted to telemetry at which time her heart rate is in the low side in 40s most of the time. Apparently, she has episodes of weakness, episodes of lightheadedness, dizziness and near syncopal episodes recently. PAST MEDICAL HISTORY: The patient herself cannot give much history. Apparently, she was hospitalized with heart attack in 2007 at [facility] being followed at [facility] on a regular basis. The patient's family is not available. It appears the patient may have history of heart failure and atrial fibrillation in the past along with renal failure. SOCIAL HISTORY: Lives with her daughter. Does not smoke or use alcohol. Says she had children, 1 . MEDICATIONS AND ALLERGIES: None known. HOME MEDICATIONS: Included aspirin 81 mg daily, vitamin B12 1 gram daily, digoxin 0.125 mg daily, Lasix 20 mg daily, metoprolol 100 mg once a day in addition to sodium bicarbonate and Coumadin 3 mg a day. REVIEW OF SYSTEMS: As mentioned above, the patient has episodes of confusion. She has frequent episodes of lightheadedness and may be near syncopal episodes. Denies any fever or coughing. No change in the bowel habits. No urinary symptoms. She states when she could walk, she gets short of breath easily. No orthopnea, no leg swelling. Taking her medications regularly. PHYSICAL EXAMINATION: GENERAL: The patient appears to be comfortable, in no acute distress, well-developed, well-nourished. HEENT: Conjunctivae pink. Sclerae anicteric. NECK: Supple. HEART: Irregular. No significant murmurs noted. LUNGS: Clear. ABDOMEN: Benign. EXTREMITIES: Without edema. LABORATORY DATA: Showed hemoglobin of 14.5 g/dL with sodium of 136, potassium of 3.5. BUN is 16, creatinine of 1.9. INR was found to be elevated at 3.56. FINAL IMPRESSION: 1. Episodes of lightheadedness, dizziness, may be near syncopal episodes, not clear whether she had syncope episode. The patient is having atrial fibrillation, rates up to 180, subsequently followed mostly in atrial fibrillation in the rates of 40s. The patient is having tachybrady episodes with underlying atrial fibrillation, on anticoagulation. It appears the patient may have chronic atrial fibrillation with present tachybrady episodes. Considering her symptoms, symptomatology of almost near syncopal episodes may benefit from permanent pacemaker insertion. However, we will get further details from the family when they are available. Also, she is on anticoagulation with INR being elevated at that time, we will monitor her telemetry. We will try to get information from [facility]. 2. Probable history of congestive heart failure. She gets short of breath easily. We will get an echocardiogram for evaluation of her LV function. Also, she has underlying chronic renal insufficiency seen by Dr. Cline during this admission. Continue present medical therapy, monitored on telemetry. We will discuss with the patient's family about pacemaker implantation. However, the patient is being followed apparently on a regular basis at [facility]. Thank you very much Dr. Conrad for letting us participate in outpatient care. JOB# [id number] SHERINE/KHUSHBU
--- NOTE | 2018-04-22 23:32 | Ultrasound Report ---
FINAL REPORT PROCEDURE: Renal ultrasound. TECHNIQUE: Real-time sonography in multiple planes of the kidneys, ureters and urinary bladder was performed with image documentation. CPT 28956 HISTORY: Renal failure. COMPARISON: No prior studies are available for comparison. FINDINGS: The right kidney measures 7.4 centimeters x 3.8 centimeters x 4.8 centimeters. The left kidney measures 8.4 centimeters x 4.5 centimeters x 4.7 centimeters. The kidneys are fairly small. The echogenicity of the kidneys appears similar to that of the liver. This could indicate medical renal disease. There is no hydronephrosis. There are no definite mass lesions. There are no renal calculi. Incidental note is made of a solid mass within the fundal portion of the gallbladder. This measures 2.0 centimeters x 1.6 centimeters in cross-section. I am not certain whether this is movable or attached to the wall. It does not cause acoustical shadowing. Differential possibilities include a sludge ball or a large gallbladder polyp/neoplasm. Further evaluation is suggested. IMPRESSION: Slightly small kidneys. Question medical renal disease. Abnormal gallbladder as discussed above.
[2018-04-23] MEDS: ZOFRAN ODT PO SCH ×3 (05:27→22:35)
[2018-04-23 12:38] LABS: INR 2.88 (0.87-1.13)
[2018-04-23] MEDS: VITAMIN B-12 PO SCH (13:28)
[2018-04-23] MEDS: LOPRESSOR PO SCH (13:29)
[2018-04-23] MEDS: SODIUM CHLORIDE FLUSH SYRINGE 10 ML IV SCH ×2 (13:30→22:34)
[2018-04-23] MEDS: PEPCID PO SCH (13:30)
[2018-04-23] MEDS: HALFPRIN EC PO SCH (13:31)
[2018-04-23] MEDS: SODIUM BICARBONATE PO SCH (13:32)
--- NOTE | 2018-04-23 15:54 | Progress Note ---
Assessment and Plan Assessment and plan: 83 YO Female with Atrial Fib on therapeutic anticoagulation, CHF, CKD presents to ED for evaluation. Pt states that she has experienced weakness, multiple episodes of dizziness and near syncope over the past 1 day and subsequently lost consciousness today. EMS notified and upon arrival the patient was found to have Atrial Fib with RVR. Pt transported to [facility] for further care and evaluation. Pt seen and evaluated in ED and found to have Atrial Fib with RVR, as well as symptoms consistent with Diastolic CHF. Pt admitted to telemetry, and Cardiology team consulted in ED. Pt denies fever, chills, CP, NVD, Trauma, Palpitatons, BRBPR, Unintentional weight loss, night sweats, bone pain, productive cough, or recent ill contacts. Pt has also experienced episodes of bradycardia on digoxin resulting in dizziness and near syncope. Her dose has been held as per her physician. Pt subsequently developed Atrial fib with RVR. Afib with rvr CKD Syncope Acute kidney injury on chronic kidney disease secondary to vasomotor nephropathy Systolic congestive heart failure chronic stable Secondary Hypercoagulable state Symptomatic tachybrady syndrom with repeated falls Hyponatremia Plan Continue supportive care Discussed with cardiology, patient likely to need pacemaker, await records. Discussed with Nursing team to ensure that patient is placed on fall precaution Nephrology With cardiology input Medication including digoxin Continue Coumadin with pharmacy dosing. May need to be held today due to supratherapeutic INR DVT and GI prophylaxis The records from [facility] in the a.m. History Interval history: Patient seen and examined sitting up at bedside still with some intermittent confusion no other adverse events reported by nursing staff Hospitalist Physical - Physical exam Narrative exam: VITAL SIGNS: Reviewed. GENERAL: The patient appeared well nourished and normally developed. Vital signs as documented. HEAD: No signs of head trauma. EYES: Pupils are equal. Extraocular motions intact. EARS: Hearing grossly intact. MOUTH: Oropharynx is normal. NECK: No adenopathy, no JVD. CHEST: Chest with clear breath sounds bilaterally. No wheezes, rales, or rhonchi. CARDIAC: Irregular rate and rhythm. S1 and S2, without murmurs, gallops, or rubs. VASCULAR: No Edema. Peripheral pulses normal and equal in all extremities. ABDOMEN: Soft, without detectable tenderness. No sign of distention. No rebound or guarding, and no masses palpated. Bowel Sounds normal. MUSCULOSKELETAL: Good range of motion of all major joints. Extremities without clubbing, cyanosis or edema. NEUROLOGIC EXAM: Alert and oriented x [address] No focal sensory or strength deficits. Speech normal. Follows commands. PSYCHIATRIC: Mood normal. SKIN: No rash or lesions. - Constitutional Vitals: Temp Pulse Resp BP Pulse Ox 98.1 F 61 16 109/50 99 04/23/18 07:49 04/23/18 07:49 04/23/18 07:49 04/23/18 13:29 04/23/18 10:00 General appearance: Present: mild distress Results - Labs CBC & Chem 7: 04/21/18 11:21 04/22/18 06:49 Labs: Laboratory Last Values WBC 4.8 K/mm3 (4.5-11.0) 04/21/18 11:21 RBC 4.41 M/mm3 (3.65-5.03) 04/21/18 11:21 Hgb 14.5 gm/dl (10.1-14.3) H 04/21/18 11:21 Hct 42.9 % (30.3-42.9) 04/21/18 11:21 MCV 97 fl (79-97) 04/21/18 11:21 MCH 33 pg (28-32) H 04/21/18 11:21 MCHC 34 % (30-34) 04/21/18 11:21 RDW 16.0 % (13.2-15.2) H 04/21/18 11:21 Plt Count 263 K/mm3 (140-440) 04/21/18 11:21 Lymph % (Auto) 39.1 % (13.4-35.0) H 04/21/18 11:21 [place] % (Auto) 11.0 % (0.0-7.3) H 04/21/18 11:21 Eos % (Auto) 1.9 % (0.0-4.3) 04/21/18 11:21 Baso % (Auto) 0.6 % (0.0-1.8) 04/21/18 11:21 Lymph # 1.9 K/mm3 (1.2-5.4) 04/21/18 11:21 [place] # 0.5 K/mm3 (0.0-0.8) 04/21/18 11:21 Eos # 0.1 K/mm3 (0.0-0.4) 04/21/18 11:21 Baso # 0.0 K/mm3 (0.0-0.1) 04/21/18 11:21 Seg Neutrophils % 47.4 % (40.0-70.0) 04/21/18 11:21 Seg Neutrophils # 2.3 K/mm3 (1.8-7.7) 04/21/18 11:21 PT 30.7 Sec. (12.2-14.9) H 04/23/18 11:31 INR 2.88 (0.87-1.13) H 04/23/18 11:31 APTT 45.6 Sec. (24.2-36.6) H 04/21/18 11:21 Sodium 131 mmol/L (137-145) L 04/22/18 06:49 Potassium 4.6 mmol/L (3.6-5.0) D 04/22/18 06:49 Chloride 99.4 mmol/L (98-107) 04/22/18 06:49 Carbon Dioxide 20 mmol/L (22-30) L 04/22/18 06:49 Anion Gap 16 mmol/L 04/22/18 06:49 BUN 18 mg/dL (7-17) H 04/22/18 06:49 Creatinine 2.0 mg/dL (0.7-1.2) H 04/22/18 06:49 Estimated GFR 24 ml/min 04/22/18 06:49 BUN/Creatinine Ratio 9 % 04/22/18 06:49 Glucose 85 mg/dL (65-100) 04/22/18 06:49 Calcium 9.6 mg/dL (8.4-10.2) 04/22/18 06:49 Total Bilirubin 0.60 mg/dL (0.1-1.2) 04/21/18 11:21 AST 23 units/L (5-40) 04/21/18 11:21 ALT 12 units/L (7-56) 04/21/18 11:21 Alkaline Phosphatase 73 units/L (35-129) 04/21/18 11:21 Troponin T < 0.010 ng/mL (0.00-0.029) 04/21/18 18:31 NT-Pro-B Natriuret Pep 1787 pg/mL (0-900) H 04/21/18 14:50 Total Protein 7.9 g/dL (6.3-8.2) 04/21/18 11:21 Albumin 3.7 g/dL (3.9-5) L 04/21/18 11:21 Albumin/Globulin Ratio 0.9 % 04/21/18 11:21 TSH 0.590 mlU/mL (0.270-4.200) 04/21/18 14:50 Free T4 1.25 ng/dL (0.76-1.46) 04/21/18 14:50 Urine Color Yellow (Yellow) 04/22/18 06:10 Urine Turbidity Slightly-cloudy (Clear) 04/22/18 06:10 Urine pH 5.0 (5.0-7.0) 04/22/18 06:10 Ur Specific [place] 1.016 (1.003-1.030) 04/22/18 06:10 Urine Protein <15 mg/dl mg/dL (Negative) 04/22/18 06:10 Urine Glucose (UA) Neg mg/dL (Negative) 04/22/18 06:10 Urine Ketones Neg mg/dL (Negative) 04/22/18 06:10 Urine Blood Neg (Negative) 04/22/18 06:10 Urine Nitrite Neg (Negative) 04/22/18 06:10 Urine Bilirubin Neg (Negative) 04/22/18 06:10 Urine Urobilinogen < 2.0 mg/dL (<2.0) 04/22/18 06:10 Ur Leukocyte Esterase Sm (Negative) 04/22/18 06:10 Urine WBC (Auto) 7.0 /HPF (0.0-6.0) H 04/22/18 06:10 Urine RBC (Auto) 5.0 /HPF (0.0-6.0) 04/22/18 06:10 U Epithel Cells (Auto) 22.0 /HPF (0-13.0) H 04/22/18 06:10 Hyaline Casts 13 /LPF 04/22/18 06:10 Urine Mucus Few /HPF 04/22/18 06:10 Urine Creatinine 355.7 mg/dL (0.1-20.0) H 04/22/18 06:10 Urine Sodium 30 mmol/L 04/22/18 06:10 Digoxin 0.6 ng/mL (0.9-2.0) L 04/21/18 11:21 Urine Opiates Screen Presumptive negative 04/22/18 06:10 Urine Methadone Screen Presumptive negative 04/22/18 06:10 Ur Barbiturates Screen Presumptive negative 04/22/18 06:10 Ur Phencyclidine Scrn Presumptive negative 04/22/18 06:10 Ur Amphetamines Screen Presumptive positive 04/22/18 06:10 U Benzodiazepines Scrn Presumptive negative 04/22/18 06:10 Urine Cocaine Screen Presumptive negative 04/22/18 06:10 U Marijuana (THC) Screen Presumptive negative 04/22/18 06:10 Drugs of Abuse Note Disclamer 04/22/18 06:10
[2018-04-23] MEDS ORDERED: COUMADIN PO SCH (17:00)
--- NOTE | 2018-04-23 18:57 | Progress Note ---
Assessment and Plan Impression: * Stage IV chronic kidney disease --SCr 2.7mg/cL, eGFR 17ml/min (2017) * ?Gallbladder mass * Atrial fibrillation with RVR * Hyponatremia * Metabolic acidosis Plan: * No AM labs available for reveiw. However, renal function is stable c/w 2016. No acute indication for renal replacement therapy * Rate control/anticoagulation per cardiology * Renal u/s reviewed: ?gallbladder mass noted; will need further imaging to evaluate * Avoid potential nephrotoxins * Dose medications for renal function * AM labs ordered Subjective Date of service: 04/23/18 Interval history: Patient has no complaints Objective - Vital Signs Vital signs: Vital Signs - 12hr 04/23/18 04/23/18 04/23/18 07:49 10:00 13:29 Temperature 98.1 F Pulse Rate 61 Respiratory 16 Rate Blood Pressure 109/50 109/50 O2 Sat by Pulse 98 99 Oximetry 04/23/18 17:41 Temperature 98.6 F Pulse Rate 79 Respiratory 16 Rate Blood Pressure 127/62 O2 Sat by Pulse 100 Oximetry - General Appearance General appearance: well-developed, well-nourished EENT: ATNC Respiratory: Present: Clear to Ascultation Cardiology: irregular Gastrointestinal: normal, no tenderness, no distended Integumentary: no rash, warm and dry Neurologic: no focal deficit Musculoskeletal: other (no edema) Psychiatric: cooperative - Lab 04/21/18 11:21 04/22/18 06:49 Most recent lab results Calcium 9.6 mg/dL (8.4-10.2) 04/22/18 06:49 Urine Creatinine 355.7 mg/dL (0.1-20.0) H 04/22/18 06:10 Urine Sodium 30 mmol/L 04/22/18 06:10
--- NOTE | 2018-04-23 19:25 | Progress Note ---
Assessment and Plan - Patient Problems (1) Altered mental status Current Visit: Yes Status: Acute Qualifiers: Altered mental status type: unspecified Qualified Code(s): R41.82 - Altered mental status, unspecified (2) Atrial fibrillation with RVR Current Visit: Yes Status: Acute Plan to address problem: Patient with atrial fibrilltion with periods of tachycardia upto 150/mt,also bradycardia in 40's,hx. of fall,underlying dementia,disorientation.Patient is being followed at [facility],on chronic anticoagulation.Will discuss with family/get records from [facility].Need to discuss about PPM. Subjective Date of service: 04/23/18 Interval history: Patient is confused,according to family this is chronic issue. Objective Vital Signs Temp Pulse Resp BP Pulse Ox 04/23/18 17:41 98.6 F 79 16 127/62 100 04/23/18 13:29 109/50 04/23/18 10:00 99 04/23/18 07:49 98.1 F 61 16 109/50 98 04/23/18 04:56 98.2 F 55 L 20 116/49 100 04/22/18 23:35 98.3 F 69 20 101/46 97 04/22/18 22:00 72 04/22/18 21:36 100 04/22/18 20:07 97.7 F 65 20 107/41 100 04/22/18 19:43 20 - Physical Examination General: No Apparent Distress HEENT: Positive: PERRL Neck: Positive: neck supple, trachea midline Cardiac: Positive: irregularly irregular. Negative: Audible Murmur Lungs: Positive: clear to auscultation Neuro: Positive: Other (not oriented to place or time.) Abdomen: Positive: Unremarkable Extremities: Present: edema - Labs and Meds Coagulation 04/23/18 Range/Units 11:31 PT 30.7 H (12.2-14.9) Sec. INR 2.88 H (0.87-1.13)
[2018-04-23 20:47] LABS: Calcium 9.6 mg/dL (8.4-10.2)
[2018-04-23] MEDS: LANOXIN PO SCH (22:32)
[2018-04-24 06:14] LABS: INR 2.72 (0.87-1.13)
[2018-04-24] MEDS: ZOFRAN ODT PO SCH ×3 (06:15→23:45)
[2018-04-24 06:35] LABS: Calcium 9.3 mg/dL (8.4-10.2)
[2018-04-24] MEDS ORDERED: ATIVAN IV NR (08:40)
[2018-04-24] MEDS: HALFPRIN EC PO SCH (10:00)
[2018-04-24] MEDS: PEPCID PO SCH (11:00)
[2018-04-24] MEDS: SODIUM BICARBONATE PO SCH (11:00)
[2018-04-24] MEDS: SODIUM CHLORIDE FLUSH SYRINGE 10 ML IV SCH ×2 (11:00→23:45)
[2018-04-24] MEDS: VITAMIN B-12 PO SCH (11:06)
--- NOTE | 2018-04-24 11:32 | Progress Note ---
Assessment and Plan Optimize HR - increase lopressor to 50mg TID. Await [facility] records. The patient has been seen in conjunction with Dr. Hansen who agrees with the assessment and plan of care. - Patient Problems (1) Pre-syncope Current Visit: Yes Status: Acute (2) Altered mental status Current Visit: Yes Status: Acute Qualifiers: Altered mental status type: unspecified Qualified Code(s): R41.82 - Altered mental status, unspecified (3) Atrial fibrillation with RVR Current Visit: Yes Status: Chronic (4) Anticoagulated on Coumadin Current Visit: Yes Status: Chronic (5) NSVT (nonsustained ventricular tachycardia) Current Visit: Yes Status: Acute (6) CKD (chronic kidney disease) Current Visit: Yes Status: Chronic Subjective Date of service: 04/24/18 Principal diagnosis: AFib Interval history: pt sleeping, NAD. tele reviewed - in AFib with bouts frequent RVR and occasional SVR while sleeping overnight, no pauses noted overnight, 3 beat NSVT noted. Objective Last Vital Signs Temp 98.0 F 04/24/18 07:50 Pulse 71 04/24/18 07:50 Resp 20 04/24/18 07:50 BP 125/65 04/24/18 07:50 Pulse Ox 100 04/24/18 07:50 - Physical Examination General: No Apparent Distress HEENT: Positive: PERRL Neck: Positive: neck supple, trachea midline Cardiac: Positive: irregularly irregular, S1/S2 Lungs: Positive: Decreased Breath Sounds Neuro: Positive: Other (not oriented to place or time.) Abdomen: Positive: Unremarkable Extremities: Present: edema - Labs and Meds Coagulation 04/23/18 04/24/18 Range/Units 11:31 04:51 PT 30.7 H 29.4 H (12.2-14.9) Sec. INR 2.88 H 2.72 H (0.87-1.13) Comprehensive Metabolic Panel 04/23/18 04/24/18 Range/Units 20:01 04:51 Sodium 139 D 137 (137-145) mmol/L Potassium 4.1 4.4 (3.6-5.0) mmol/L Chloride 97.3 L 100.4 (98-107) mmol/L Carbon Dioxide 28 D 21 L D (22-30) mmol/L BUN 22 H 23 H (7-17) mg/dL Creatinine 2.5 H 2.4 H (0.7-1.2) mg/dL Glucose 79 88 (65-100) mg/dL Calcium 9.6 9.3 (8.4-10.2) mg/dL - Imaging and Cardiology Echo: report reviewed (04/23/2018: EF 50-55%, mod TR, RVSP 47mmHg, mild MR) - Telemetry EKG Rhythm: Atrial Fibrillation
--- NOTE | 2018-04-24 12:43 | Cat Scan Report ---
CT HEAD WITHOUT CONTRAST: HISTORY: Altered mental status. TECHNIQUE: Sequential CT images without contrast. FINDINGS: Non-contrast CT of the head is submitted demonstrating central and cortical atrophy. There are low density changes in the periventricular white matter. There is no intracranial hemorrhage or mass effect. There is no shift of the midline. Basilar cisterns are patent. The included portions of the paranasal sinuses and mastoid air cells are clear. IMPRESSION: Senescent changes as noted. No acute intracranial process. No significant change since 04/21/18.
--- NOTE | 2018-04-24 15:16 | Progress Note ---
Assessment and Plan Impression: * Stage IV chronic kidney disease --SCr 2.7mg/cL, eGFR 17ml/min (2017) * ?Gallbladder mass * Atrial fibrillation with RVR * Hyponatremia * Metabolic acidosis Plan: * However, renal function is stable c/w 2017. No acute indication for renal replacement therapy * Rate control/anticoagulation per cardiology * cr is stable at this time * Renal u/s reviewed: ?gallbladder mass noted; will need further imaging to evaluate * Avoid potential nephrotoxins * Dose medications for renal function * AM labs ordered Subjective Date of service: 04/24/18 Principal diagnosis: AFib Interval history: resting well in bed today Objective - Exam Narrative Exam: General appearance: well-developed, well-nourished EENT: ATNC Respiratory: Present: Clear to Ascultation Cardiology: irregular Gastrointestinal: normal, no tenderness, no distended Integumentary: no rash, warm and dry Neurologic: no focal deficit Musculoskeletal: other (no edema) Psychiatric: cooperative - Vital Signs Vital signs: Vital Signs - 12hr 04/24/18 04/24/18 04/24/18 05:20 07:50 13:42 Temperature 98.3 F 98.0 F 97.6 F Pulse Rate 64 71 77 Respiratory 20 20 18 Rate Blood Pressure 110/54 Blood Pressure 125/65 134/60 [Left] O2 Sat by Pulse 98 100 100 Oximetry - Lab 04/21/18 11:21 04/24/18 04:51 Most recent lab results Calcium 9.3 mg/dL (8.4-10.2) 04/24/18 04:51 Urine Creatinine 355.7 mg/dL (0.1-20.0) H 04/22/18 06:10 Urine Sodium 30 mmol/L 04/22/18 06:10
--- NOTE | 2018-04-24 17:11 | Progress Note ---
Assessment and Plan Assessment and plan: 83 YO Female with Atrial Fib on therapeutic anticoagulation, CHF, CKD presents to ED for evaluation. Pt states that she has experienced weakness, multiple episodes of dizziness and near syncope over the past 1 day and subsequently lost consciousness today. EMS notified and upon arrival the patient was found to have Atrial Fib with RVR. Pt transported to [facility] for further care and evaluation. Pt seen and evaluated in ED and found to have Atrial Fib with RVR, as well as symptoms consistent with Diastolic CHF. Pt admitted to telemetry, and Cardiology team consulted in ED. Pt denies fever, chills, CP, NVD, Trauma, Palpitatons, BRBPR, Unintentional weight loss, night sweats, bone pain, productive cough, or recent ill contacts. Pt has also experienced episodes of bradycardia on digoxin resulting in dizziness and near syncope. Her dose has been held as per her physician. Pt subsequently developed Atrial fib with RVR. Afib with rvr CKD Syncope Encephalopathy with delirium Acute kidney injury on chronic kidney disease secondary to vasomotor nephropathy Systolic congestive heart failure chronic stable Secondary Hypercoagulable state Symptomatic tachybrady syndrome with repeated falls Hyponatremia Gall Bladder Mass Plan Continue supportive care Called family, they will like to discuss with cardiology, advised them pacemaker will not fix dementia as they had asked Obtain CT abdomen to evaluate gall bladder mass- May need GI eval Discussed with cardiology, patient likely to need pacemaker, await records. Discussed with Nursing team to ensure that patient is placed on fall precaution Nephrology input noted Medication including digoxin Continue Coumadin with pharmacy dosing. May need to be held today due to supratherapeutic INR Delirium precautions DVT and GI prophylaxis Awaiting records [facility] If no pacemaker discuss with family comfort measures. History Interval history: Patient seen and examined, confused this am, requiring ativan. no other adverse event noted Hospitalist Physical - Physical exam Narrative exam: VITAL SIGNS: Reviewed. GENERAL: The patient appeared well nourished and normally developed. Vital signs as documented. HEAD: No signs of head trauma. EYES: Pupils are equal. Extraocular motions intact. EARS: Hearing grossly intact. MOUTH: Oropharynx is normal. NECK: No adenopathy, no JVD. CHEST: Chest with clear breath sounds bilaterally. No wheezes, rales, or rhonchi. CARDIAC: Irregular rate and rhythm. S1 and S2, without murmurs, gallops, or rubs. VASCULAR: No Edema. Peripheral pulses normal and equal in all extremities. ABDOMEN: Soft, without detectable tenderness. No sign of distention. No rebound or guarding, and no masses palpated. Bowel Sounds normal. MUSCULOSKELETAL: Good range of motion of all major joints. Extremities without clubbing, cyanosis or edema. NEUROLOGIC EXAM: Alert and oriented x [address] No focal sensory or strength deficits. Speech normal. Follows commands. PSYCHIATRIC: Mood normal. SKIN: No rash or lesions. - Constitutional Vitals: Temp Pulse Resp BP Pulse Ox 97.6 F 77 18 134/60 100 04/24/18 13:42 04/24/18 13:42 04/24/18 13:42 04/24/18 13:42 04/24/18 13:42 General appearance: Present: mild distress Results - Labs CBC & Chem 7: 04/21/18 11:21 04/24/18 04:51 Labs: Laboratory Last Values WBC 4.8 K/mm3 (4.5-11.0) 04/21/18 11:21 RBC 4.41 M/mm3 (3.65-5.03) 04/21/18 11:21 Hgb 14.5 gm/dl (10.1-14.3) H 04/21/18 11:21 Hct 42.9 % (30.3-42.9) 04/21/18 11:21 MCV 97 fl (79-97) 04/21/18 11:21 MCH 33 pg (28-32) H 04/21/18 11:21 MCHC 34 % (30-34) 04/21/18 11:21 RDW 16.0 % (13.2-15.2) H 04/21/18 11:21 Plt Count 263 K/mm3 (140-440) 04/21/18 11:21 Lymph % (Auto) 39.1 % (13.4-35.0) H 04/21/18 11:21 [place] % (Auto) 11.0 % (0.0-7.3) H 04/21/18 11:21 Eos % (Auto) 1.9 % (0.0-4.3) 04/21/18 11:21 Baso % (Auto) 0.6 % (0.0-1.8) 04/21/18 11:21 Lymph # 1.9 K/mm3 (1.2-5.4) 04/21/18 11:21 [place] # 0.5 K/mm3 (0.0-0.8) 04/21/18 11:21 Eos # 0.1 K/mm3 (0.0-0.4) 04/21/18 11:21 Baso # 0.0 K/mm3 (0.0-0.1) 04/21/18 11:21 Seg Neutrophils % 47.4 % (40.0-70.0) 04/21/18 11:21 Seg Neutrophils # 2.3 K/mm3 (1.8-7.7) 04/21/18 11:21 PT 29.4 Sec. (12.2-14.9) H 04/24/18 04:51 INR 2.72 (0.87-1.13) H 04/24/18 04:51 APTT 45.6 Sec. (24.2-36.6) H 04/21/18 11:21 Sodium 137 mmol/L (137-145) 04/24/18 04:51 Potassium 4.4 mmol/L (3.6-5.0) 04/24/18 04:51 Chloride 100.4 mmol/L (98-107) 04/24/18 04:51 Carbon Dioxide 21 mmol/L (22-30) L D 04/24/18 04:51 Anion Gap 20 mmol/L 04/24/18 04:51 BUN 23 mg/dL (7-17) H 04/24/18 04:51 Creatinine 2.4 mg/dL (0.7-1.2) H 04/24/18 04:51 Estimated GFR 19 ml/min 04/24/18 04:51 BUN/Creatinine Ratio 10 % 04/24/18 04:51 Glucose 88 mg/dL (65-100) 04/24/18 04:51 Calcium 9.3 mg/dL (8.4-10.2) 04/24/18 04:51 Total Bilirubin 0.60 mg/dL (0.1-1.2) 04/21/18 11:21 AST 23 units/L (5-40) 04/21/18 11:21 ALT 12 units/L (7-56) 04/21/18 11:21 Alkaline Phosphatase 73 units/L (35-129) 04/21/18 11:21 Troponin T < 0.010 ng/mL (0.00-0.029) 04/21/18 18:31 NT-Pro-B Natriuret Pep 1787 pg/mL (0-900) H 04/21/18 14:50 Total Protein 7.9 g/dL (6.3-8.2) 04/21/18 11:21 Albumin 3.7 g/dL (3.9-5) L 04/21/18 11:21 Albumin/Globulin Ratio 0.9 % 04/21/18 11:21 TSH 0.590 mlU/mL (0.270-4.200) 04/21/18 14:50 Free T4 1.25 ng/dL (0.76-1.46) 04/21/18 14:50 Urine Color Yellow (Yellow) 04/22/18 06:10 Urine Turbidity Slightly-cloudy (Clear) 04/22/18 06:10 Urine pH 5.0 (5.0-7.0) 04/22/18 06:10 Ur Specific [place] 1.016 (1.003-1.030) 04/22/18 06:10 Urine Protein <15 mg/dl mg/dL (Negative) 04/22/18 06:10 Urine Glucose (UA) Neg mg/dL (Negative) 04/22/18 06:10 Urine Ketones Neg mg/dL (Negative) 04/22/18 06:10 Urine Blood Neg (Negative) 04/22/18 06:10 Urine Nitrite Neg (Negative) 04/22/18 06:10 Urine Bilirubin Neg (Negative) 04/22/18 06:10 Urine Urobilinogen < 2.0 mg/dL (<2.0) 04/22/18 06:10 Ur Leukocyte Esterase Sm (Negative) 04/22/18 06:10 Urine WBC (Auto) 7.0 /HPF (0.0-6.0) H 04/22/18 06:10 Urine RBC (Auto) 5.0 /HPF (0.0-6.0) 04/22/18 06:10 U Epithel Cells (Auto) 22.0 /HPF (0-13.0) H 04/22/18 06:10 Hyaline Casts 13 /LPF 04/22/18 06:10 Urine Mucus Few /HPF 04/22/18 06:10 Urine Creatinine 355.7 mg/dL (0.1-20.0) H 04/22/18 06:10 Urine Sodium 30 mmol/L 04/22/18 06:10 Digoxin 0.6 ng/mL (0.9-2.0) L 04/21/18 11:21 Urine Opiates Screen Presumptive negative 04/22/18 06:10 Urine Methadone Screen Presumptive negative 04/22/18 06:10 Ur Barbiturates Screen Presumptive negative 04/22/18 06:10 Ur Phencyclidine Scrn Presumptive negative 04/22/18 06:10 Ur Amphetamines Screen Presumptive positive 04/22/18 06:10 U Benzodiazepines Scrn Presumptive negative 04/22/18 06:10 Urine Cocaine Screen Presumptive negative 04/22/18 06:10 U Marijuana (THC) Screen Presumptive negative 04/22/18 06:10 Drugs of Abuse Note Disclamer 04/22/18 06:10
[2018-04-24] MEDS: LOPRESSOR PO SCH ×3 (19:06→23:44)
--- NOTE | 2018-04-24 19:41 | Cat Scan Report ---
FINAL REPORT PROCEDURE: CT ABDOMEN PELVIS WO CON TECHNIQUE: Computerized axial tomography of the abdomen and pelvis was performed without intravenous contrast. This study is performed without intravascular contrast material and its sensitivity for abdominal and pelvic pathology, including neoplasms, inflammation, abscess, free fluid, thrombosis, arterial dissection and infarction, is reduced compared with a contrast enhanced study. HISTORY: gallbladder mass COMPARISON: Ultrasound 04/22/2018 FINDINGS: Visualized lower thorax: Prominent heart size. Trace amount of pericardial fluid is present. Liver: Normal size and attenuation. Spleen: Normal size and attenuation. Gallbladder and biliary system: Gallbladder is present. Masslike area seen in the gallbladder on the ultrasound is not diagnostically evaluated with this modality. Pancreas: Normal. Adrenals: Normal. Kidneys: Normal. GI tract: There is sigmoid diverticulosis. Appendix is visualized and does not appear inflamed. Lymph nodes and mesentery: Normal. Vasculature: There is aortic and mesenteric arterial atherosclerotic calcification. Bladder: Normal. Reproductive organs: Uterus is absent. Peritoneum: No free fluid. Musculoskeletal structures: There are degenerative disc and facet arthritic changes in the lumbar spine, particularly at L5-S1. Other: None. IMPRESSION: Masslike area in the gallbladder seen on the prior ultrasound is not diagnostically evaluated with this modality. If clinically indicated, further evaluation with MRI with contrast could be obtained Sigmoid diverticulosis. Cardiomegaly
[2018-04-24] MEDS: LANOXIN PO SCH (20:38)
[2018-04-25] MEDS: ZOFRAN ODT PO SCH ×3 (06:14→21:35)
[2018-04-25 06:17] LABS: INR 1.96 (0.87-1.13)
[2018-04-25 06:27] LABS: Calcium 9.4 mg/dL (8.4-10.2)
[2018-04-25] MEDS: LOPRESSOR PO SCH ×3 (09:00→21:35)
[2018-04-25] MEDS: HALFPRIN EC PO SCH (10:13)
[2018-04-25] MEDS: SODIUM BICARBONATE PO SCH (10:13)
[2018-04-25] MEDS: VITAMIN B-12 PO SCH (10:13)
[2018-04-25] MEDS: PEPCID PO SCH (10:13)
[2018-04-25] MEDS: SODIUM CHLORIDE FLUSH SYRINGE 10 ML IV SCH ×2 (10:15→21:36)
--- NOTE | 2018-04-25 11:33 | Progress Note ---
Assessment and Plan Currently stable cardiac status. Pt may discharge from cardiology standpoint. Recommend pt follow up with [facility] within 1-2 weeks of hospital discharge. Pt's niece at bedside verbalizes understanding. The patient has been seen in conjunction with Dr. Hansen who agrees with the assessment and plan of care. - Patient Problems (1) Pre-syncope Current Visit: Yes Status: Acute (2) Altered mental status Current Visit: Yes Status: Acute Qualifiers: Altered mental status type: unspecified Qualified Code(s): R41.82 - Altered mental status, unspecified (3) Atrial fibrillation with RVR Current Visit: Yes Status: Chronic (4) Anticoagulated on Coumadin Current Visit: Yes Status: Chronic (5) NSVT (nonsustained ventricular tachycardia) Current Visit: Yes Status: Acute (6) CKD (chronic kidney disease) Current Visit: Yes Status: Chronic Subjective Date of service: 04/25/18 Principal diagnosis: AFib Interval history: pt sleeping, NAD. tele reviewed - in AFib with CVR, some SVT noted overnight during sleep, no pauses noted overnight. Pt's niece at bedside. Objective Last Vital Signs Temp 97.7 F 04/25/18 05:54 Pulse 55 L 04/25/18 05:54 Resp 18 04/25/18 05:54 BP 137/90 04/25/18 05:54 Pulse Ox 100 04/25/18 07:52 - Physical Examination General: No Apparent Distress HEENT: Positive: PERRL Neck: Positive: neck supple, trachea midline Cardiac: Positive: irregularly irregular, S1/S2 Lungs: Positive: clear to auscultation Neuro: Positive: Other (not oriented to place or time.) Abdomen: Positive: Unremarkable Extremities: Present: edema - Labs and Meds Coagulation 04/25/18 Range/Units 04:52 PT 22.9 H (12.2-14.9) Sec. INR 1.96 H (0.87-1.13) Comprehensive Metabolic Panel 04/25/18 Range/Units 04:52 Sodium 137 (137-145) mmol/L Potassium 4.6 (3.6-5.0) mmol/L Chloride 100.7 (98-107) mmol/L Carbon Dioxide 25 (22-30) mmol/L BUN 22 H (7-17) mg/dL Creatinine 2.2 H (0.7-1.2) mg/dL Glucose 79 (65-100) mg/dL Calcium 9.4 (8.4-10.2) mg/dL - Imaging and Cardiology Echo: report reviewed (04/23/2018: EF 50-55%, mod TR, RVSP 47mmHg, mild MR) - Telemetry EKG Rhythm: Atrial Fibrillation
--- NOTE | 2018-04-25 13:16 | Progress Note ---
Assessment and Plan Impression: * Stage IV chronic kidney disease --SCr 2.7mg/cL, eGFR 17ml/min (2017) * ?Gallbladder mass * Atrial fibrillation with RVR * Hyponatremia * Metabolic acidosis Plan: * However, renal function is stable c/w 2017. No acute indication for renal replacement therapy * Rate control/anticoagulation per cardiology * cr is stable at this time * Renal u/s reviewed: ?gallbladder mass noted; no mass noted on CT--defer to primary team for further workup if needed * Avoid potential nephrotoxins * Dose medications for renal function * AM labs ordered Subjective Date of service: 04/25/18 Principal diagnosis: AFib Interval history: resting well in bed today Objective - Exam Narrative Exam: General appearance: well-developed, well-nourished EENT: ATNC Respiratory: Present: Clear to Ascultation Cardiology: irregular Gastrointestinal: normal, no tenderness, no distended Integumentary: no rash, warm and dry Neurologic: no focal deficit Musculoskeletal: other (no edema) Psychiatric: cooperative - Vital Signs Vital signs: Vital Signs - 12hr 04/25/18 04/25/18 04/25/18 05:54 07:52 11:27 Temperature 97.7 F 97.9 F Pulse Rate 55 L 67 Respiratory 18 14 Rate Blood Pressure 137/90 109/45 O2 Sat by Pulse 100 100 100 Oximetry - Lab 04/21/18 11:21 04/25/18 04:52 Most recent lab results Calcium 9.4 mg/dL (8.4-10.2) 04/25/18 04:52 Urine Creatinine 355.7 mg/dL (0.1-20.0) H 04/22/18 06:10 Urine Sodium 30 mmol/L 04/22/18 06:10
--- NOTE | 2018-04-25 15:00 | Progress Note ---
Assessment and Plan Assessment and plan: 83 YO Female with Atrial Fib on therapeutic anticoagulation, CHF, CKD presents to ED for evaluation. Pt states that she has experienced weakness, multiple episodes of dizziness and near syncope over the past 1 day and subsequently lost consciousness today. EMS notified and upon arrival the patient was found to have Atrial Fib with RVR. Pt transported to [facility] for further care and evaluation. Pt seen and evaluated in ED and found to have Atrial Fib with RVR, as well as symptoms consistent with Diastolic CHF. Pt admitted to telemetry, and Cardiology team consulted in ED. Pt has also experienced episodes of bradycardia on digoxin resulting in dizziness and near syncope. Her dose has been held as per her physician. Pt subsequently developed Atrial fib with RVR. Afib with rvr CKD Syncope Encephalopathy with delirium Acute kidney injury on chronic kidney disease secondary to vasomotor nephropathy Systolic congestive heart failure chronic stable Secondary Hypercoagulable state Symptomatic tachybrady syndrome with repeated falls Hyponatremia Gall Bladder Mass Plan - Cardiology cleared her for discharge - Management plan was discussed with the daughter and she wants home hospice and will be discharged in the morning. History Interval history: Patient was seen and evaluated this morning, patient has dementia. Patient was sleepy after Ativan. Hospitalist Physical - Physical exam Narrative exam: Not in cardiopulmonary distress. The patient appeared friable. Vital signs as documented. Head exam is unremarkable. No scleral icterus . Neck is without jugular venous distension, thyromegaly, or carotid bruits. Lungs are clear to auscultation. Cardiac exam reveals irregular rate and Rhythm. Abdominal exam reveals normal bowel sounds, no masses, no organomegaly and no aortic enlargement. Extremities are nonedematous and both femoral and pedal pulses are normal. ACCOUNT SUPPORT REP: Sleepy. - Constitutional Vitals: Temp Pulse Resp BP Pulse Ox 97.9 F 71 14 109/45 100 04/25/18 11:27 04/25/18 13:31 04/25/18 11:27 04/25/18 11:27 04/25/18 11:27 General appearance: Present: mild distress Results - Labs CBC & Chem 7: 04/21/18 11:21 04/25/18 04:52 Labs: Laboratory Last Values WBC 4.8 K/mm3 (4.5-11.0) 04/21/18 11:21 RBC 4.41 M/mm3 (3.65-5.03) 04/21/18 11:21 Hgb 14.5 gm/dl (10.1-14.3) H 04/21/18 11:21 Hct 42.9 % (30.3-42.9) 04/21/18 11:21 MCV 97 fl (79-97) 04/21/18 11:21 MCH 33 pg (28-32) H 04/21/18 11:21 MCHC 34 % (30-34) 04/21/18 11:21 RDW 16.0 % (13.2-15.2) H 04/21/18 11:21 Plt Count 263 K/mm3 (140-440) 04/21/18 11:21 Lymph % (Auto) 39.1 % (13.4-35.0) H 04/21/18 11:21 [place] % (Auto) 11.0 % (0.0-7.3) H 04/21/18 11:21 Eos % (Auto) 1.9 % (0.0-4.3) 04/21/18 11:21 Baso % (Auto) 0.6 % (0.0-1.8) 04/21/18 11:21 Lymph # 1.9 K/mm3 (1.2-5.4) 04/21/18 11:21 [place] # 0.5 K/mm3 (0.0-0.8) 04/21/18 11:21 Eos # 0.1 K/mm3 (0.0-0.4) 04/21/18 11:21 Baso # 0.0 K/mm3 (0.0-0.1) 04/21/18 11:21 Seg Neutrophils % 47.4 % (40.0-70.0) 04/21/18 11:21 Seg Neutrophils # 2.3 K/mm3 (1.8-7.7) 04/21/18 11:21 PT 22.9 Sec. (12.2-14.9) H 04/25/18 04:52 INR 1.96 (0.87-1.13) H 04/25/18 04:52 APTT 45.6 Sec. (24.2-36.6) H 04/21/18 11:21 Sodium 137 mmol/L (137-145) 04/25/18 04:52 Potassium 4.6 mmol/L (3.6-5.0) 04/25/18 04:52 Chloride 100.7 mmol/L (98-107) 04/25/18 04:52 Carbon Dioxide 25 mmol/L (22-30) 04/25/18 04:52 Anion Gap 16 mmol/L 04/25/18 04:52 BUN 22 mg/dL (7-17) H 04/25/18 04:52 Creatinine 2.2 mg/dL (0.7-1.2) H 04/25/18 04:52 Estimated GFR 21 ml/min 04/25/18 04:52 BUN/Creatinine Ratio 10 % 04/25/18 04:52 Glucose 79 mg/dL (65-100) 04/25/18 04:52 Calcium 9.4 mg/dL (8.4-10.2) 04/25/18 04:52 Total Bilirubin 0.60 mg/dL (0.1-1.2) 04/21/18 11:21 AST 23 units/L (5-40) 04/21/18 11:21 ALT 12 units/L (7-56) 04/21/18 11:21 Alkaline Phosphatase 73 units/L (35-129) 04/21/18 11:21 Troponin T < 0.010 ng/mL (0.00-0.029) 04/21/18 18:31 NT-Pro-B Natriuret Pep 1787 pg/mL (0-900) H 04/21/18 14:50 Total Protein 7.9 g/dL (6.3-8.2) 04/21/18 11:21 Albumin 3.7 g/dL (3.9-5) L 04/21/18 11:21 Albumin/Globulin Ratio 0.9 % 04/21/18 11:21 TSH 0.590 mlU/mL (0.270-4.200) 04/21/18 14:50 Free T4 1.25 ng/dL (0.76-1.46) 04/21/18 14:50 Urine Color Yellow (Yellow) 04/22/18 06:10 Urine Turbidity Slightly-cloudy (Clear) 04/22/18 06:10 Urine pH 5.0 (5.0-7.0) 04/22/18 06:10 Ur Specific [place] 1.016 (1.003-1.030) 04/22/18 06:10 Urine Protein <15 mg/dl mg/dL (Negative) 04/22/18 06:10 Urine Glucose (UA) Neg mg/dL (Negative) 04/22/18 06:10 Urine Ketones Neg mg/dL (Negative) 04/22/18 06:10 Urine Blood Neg (Negative) 04/22/18 06:10 Urine Nitrite Neg (Negative) 04/22/18 06:10 Urine Bilirubin Neg (Negative) 04/22/18 06:10 Urine Urobilinogen < 2.0 mg/dL (<2.0) 04/22/18 06:10 Ur Leukocyte Esterase Sm (Negative) 04/22/18 06:10 Urine WBC (Auto) 7.0 /HPF (0.0-6.0) H 04/22/18 06:10 Urine RBC (Auto) 5.0 /HPF (0.0-6.0) 04/22/18 06:10 U Epithel Cells (Auto) 22.0 /HPF (0-13.0) H 04/22/18 06:10 Hyaline Casts 13 /LPF 04/22/18 06:10 Urine Mucus Few /HPF 04/22/18 06:10 Urine Creatinine 355.7 mg/dL (0.1-20.0) H 04/22/18 06:10 Urine Sodium 30 mmol/L 04/22/18 06:10 Digoxin 0.6 ng/mL (0.9-2.0) L 04/21/18 11:21 Urine Opiates Screen Presumptive negative 04/22/18 06:10 Urine Methadone Screen Presumptive negative 04/22/18 06:10 Ur Barbiturates Screen Presumptive negative 04/22/18 06:10 Ur Phencyclidine Scrn Presumptive negative 04/22/18 06:10 Ur Amphetamines Screen Presumptive positive 04/22/18 06:10 U Benzodiazepines Scrn Presumptive negative 04/22/18 06:10 Urine Cocaine Screen Presumptive negative 04/22/18 06:10 U Marijuana (THC) Screen Presumptive negative 04/22/18 06:10 Drugs of Abuse Note Disclamer 04/22/18 06:10
[2018-04-25] MEDS ORDERED: LANOXIN PO SCH (17:00)
[2018-04-26] MEDS: ZOFRAN ODT PO SCH (06:04)
[2018-04-26 07:15] LABS: INR 1.75 (0.87-1.13)
[2018-04-26 07:25] LABS: Calcium 9.8 mg/dL (8.4-10.2)
[2018-04-26] MEDS: LOPRESSOR PO SCH (08:57)
[2018-04-26 08:58] VITALS: BP 102/52
[2018-04-26] MEDS: VITAMIN B-12 PO SCH (08:59)
[2018-04-26] MEDS: SODIUM BICARBONATE PO SCH (08:59)
[2018-04-26] MEDS: HALFPRIN EC PO SCH (08:59)
[2018-04-26] MEDS: SODIUM CHLORIDE FLUSH SYRINGE 10 ML IV SCH (09:00)
[2018-04-26] MEDS: PEPCID PO SCH (09:00)
--- NOTE | 2018-04-26 10:24 | Progress Note ---
Assessment and Plan Impression: * Stage IV chronic kidney disease --SCr 2.7mg/cL, eGFR 17ml/min (2017) * ?Gallbladder mass * Atrial fibrillation with RVR * Hyponatremia * Metabolic acidosis * hyperkalemis Plan: * However, renal function is stable c/w 2017. No acute indication for renal replacement therapy * k noted, stop ensure, do not give shaar * Rate control/anticoagulation per cardiology * cr is stable at this time * Renal u/s reviewed: ?gallbladder mass noted; no mass noted on CT--defer to primary team for further workup if needed * Avoid potential nephrotoxins * Dose medications for renal function * AM labs ordered Subjective Date of service: 04/26/18 Principal diagnosis: AFib Interval history: resting well in bed today Objective - Exam Narrative Exam: General appearance: well-developed, well-nourished EENT: ATNC Respiratory: Present: Clear to Ascultation Cardiology: irregular Gastrointestinal: normal, no tenderness, no distended Integumentary: no rash, warm and dry Neurologic: no focal deficit Musculoskeletal: other (no edema) Psychiatric: cooperative - Vital Signs Vital signs: Vital Signs - 12hr 04/26/18 04/26/18 04/26/18 00:17 04:48 08:41 Temperature 98.0 F 98.2 F 97.9 F Pulse Rate 60 62 71 Respiratory 18 18 16 Rate Blood Pressure 102/52 Blood Pressure 110/43 118/71 [Left] O2 Sat by Pulse 98 98 99 Oximetry - Lab 04/21/18 11:21 04/26/18 06:47 Most recent lab results Calcium 9.8 mg/dL (8.4-10.2) 04/26/18 06:47 Urine Creatinine 355.7 mg/dL (0.1-20.0) H 04/22/18 06:10 Urine Sodium 30 mmol/L 04/22/18 06:10
--- NOTE | 2018-04-26 10:55 | Discharge Summary ---
Providers - Providers Date of Admission: 04/21/18 14:04 Attending physician: KAREN JORGENSEN MD 04/22/18 09:11 Consult to Physician [CONS] Routine Comment: Consulting Provider: ALEXUS VINCENT Physician Instructions: Reason For Exam: CKD Consult to Physician [CONS] Routine Comment: Consulting Provider: [facility]OE Physician Instructions: Reason For Exam: AFIB WITH RVR Primary care physician: [facility] Hospitalization Reason for admission: a fib with RVR, CKD, CHF Condition: Serious Pertinent studies: Head CT, carotid ultrasound, echo, chest x-ray Hospital course: 83 YO Female with Atrial Fib on therapeutic anticoagulation, CHF, CKD, dementia presents to ED for evaluation. Pt states that she has experienced weakness, multiple episodes of dizziness and near syncope over the past 1 day and subsequently lost consciousness today. EMS notified and upon arrival the patient was found to have Atrial Fib with RVR. Pt transported to [facility] for further care and evaluation. Pt seen and evaluated in ED and found to have Atrial Fib with RVR, as well as symptoms consistent with Diastolic CHF. Pt admitted to telemetry, and Cardiology team consulted in ED. Pt has also experienced episodes of bradycardia on digoxin resulting in dizziness and near syncope. Her dose has been held as per her physician. Pt subsequently developed Atrial fib with RVR. Afib with rvr; Syncope, Encephalopathy with delirium, Acute kidney injury on chronic kidney disease secondary to vasomotor nephropathy, Systolic congestive heart failure chronic stable, Secondary Hypercoagulable state, Symptomatic tachybrady syndrome with repeated falls, Hyponatremia, Gall Bladder Mass, advanced dementia. Patient was admitted to the floor and managed appropriately , will have discussion with the daughter and daughter wants her mother to be in hospice care. Patient discharged home on home hospice. Disposition: DC-50 TO HOSPICE (HOME) Time spent for discharge: 32 minutes - Discharge Diagnoses (1) ARF (acute renal failure) with tubular necrosis Status: Acute (2) Altered mental status Status: Acute Qualifiers: Altered mental status type: unspecified Qualified Code(s): R41.82 - Altered mental status, unspecified (3) CHF (congestive heart failure) Status: Acute Qualifiers: Heart failure type: diastolic Heart failure chronicity: acute on chronic Qualified Code(s): I50.33 - Acute on chronic diastolic (congestive) heart failure (4) NSVT (nonsustained ventricular tachycardia) Status: Acute (5) Pre-syncope Status: Acute (6) Syncope Status: Acute (7) Anticoagulated on Coumadin Status: Chronic (8) Atrial fibrillation with RVR Status: Chronic (9) CKD (chronic kidney disease) Status: Chronic Qualifiers: Chronic kidney disease stage: stage 4 (severe) Qualified Code(s): N18.4 - Chronic kidney disease, stage 4 (severe) (10) Dementia Status: Chronic Qualifiers: Dementia type: Alzheimer's disease Alzheimer's disease onset: unspecified onset Dementia behavioral disturbance: without behavioral disturbance Qualified Code(s): G30.9 - Alzheimer's disease, unspecified; F02.80 - Dementia in other diseases classified elsewhere without behavioral disturbance Core Measure Documentation - Palliative Care Palliative Care/ Comfort Measures: Hospice Care - Core Measures Any of the following diagnoses?: none Exam - Physical Exam Narrative exam: Not in cardiopulmonary distress. The patient appeared friable. Vital signs as documented. Head exam is unremarkable. No scleral icterus . Neck is without jugular venous distension, thyromegaly, or carotid bruits. Lungs are clear to auscultation. Cardiac exam reveals irregular rate and Rhythm. Abdominal exam reveals normal bowel sounds, no masses, no organomegaly and no aortic enlargement. Extremities are nonedematous and both femoral and pedal pulses are normal. [employer] REPA[employer]ER: alert but not oriented. Demented. - Constitutional Vitals: Temp Pulse Resp BP Pulse Ox 97.9 F 71 16 102/52 100 04/26/18 08:41 04/26/18 08:41 04/26/18 08:41 04/26/18 08:41 04/26/18 10:00 Plan Activity: advance as tolerated Weight Bearing Status: Full Weight Bearing Diet: advance as tolerated Follow up with: PRIMARY MD MEENA [Primary Care Provider] - 3-5 Days Forms: Warfarin Discharge Instruction
[2018-04-26] MEDS ORDERED: KIONEX PO ONE (11:30)
== END 2018-04-26 13:58 | disposition hospice, home (50) | DRG 682 ==
LOC: ED 11:00 → 4A 14:04
PROVIDERS: ADMIT Internal Medicine; ATTEND Internal Medicine
DX: N17.0 Acute kidney failure with tubular necrosis (principal); G93.40 Encephalopathy, unspecified; I50.43 Acute on chronic combined systolic (congestive) and diastolic (congestive) heart failure; E87.1 Hypo-osmolality and hyponatremia; E87.2 Acidosis; I47.1 Supraventricular tachycardia; I48.91 Unspecified atrial fibrillation; N18.4 Chronic kidney disease, stage 4 (severe); K82.9 Disease of gallbladder, unspecified; I49.5 Sick sinus syndrome; E87.5 Hyperkalemia; G30.9 Alzheimer's disease, unspecified; F02.80 Dementia in other diseases classified elsewhere, unspecified severity, without behavioral disturbance, psychotic disturbance, mood disturbance, and anxiety; Z79.82 Long term (current) use of aspirin; Z79.899 Other long term (current) drug therapy; Z82.49 Family history of ischemic heart disease and other diseases of the circulatory system; Z79.01 Long term (current) use of anticoagulants
CPT/HCPCS: 36415; 70450; 71045; 74176; 76770; 80048; 80053; 80162; 80307; 81001; 82570; 82962; 83880; 84300; 84439; 84443; 84484; 85025; 85610; 85730; 93005; 93010; 93306; 94760; 96374; 96375; J1160; J2060; Q0162

== ENCOUNTER 2018-04-27 04:03 | Emergency (ER) | payer MEDICARE ==
--- NOTE | 2018-04-27 04:24 | Emergency Department Report ---
ED Head Trauma HPI - General Chief complaint: Fall Stated complaint: FALL Time Seen by Provider: 04/27/18 04:18 Source: patient, family, EMS Mode of arrival: Stretcher Limitations: Altered Mental Status - History of Present Illness Initial comments: 83-year-old female visits the ED status post fall. Patient states she was reaching to put her draining on the night stand, fell out of bed and hit head on the furniture. Denies LOC. Patient on Coumadin for Afib, has hematoma to forehead. Patient denies headache, neck pain. MD Complaint: head injury -: This morning Mechanism of Injury: mechanical fall Location: frontal Loss of Consciousness: no Place: home Severity: mild Other Injuries: none Context: on Warfarin Associated Symptoms: denies: confusion, repetitive questioning, nausea, vomiting , numbness, weakness, tingling, neck pain - Related Data Home Medications Medication Instructions Recorded Confirmed Last Taken Aspirin [Aspirin EC] 81 mg PO DAILY 04/21/18 04/21/18 Unknown Cyanocobalamin (Vitamin B-12) 1,000 mcg PO DAILY 04/21/18 04/21/18 Unknown [Vitamin B-12] Digoxin [Lanoxin] 0.125 mg PO DAILY 04/21/18 04/21/18 Unknown Ondansetron [Zofran Odt] 4 mg PO Q8HR 04/21/18 04/21/18 Unknown Sodium Bicarbonate 325 mg PO DAILY 04/21/18 04/21/18 Unknown Allergies/Adverse reactions: Allergies Allergy/AdvReac Type Severity Reaction Status Date / Time No Known Allergies Allergy Unverified 03/14/17 10:25 ED Review of Systems ROS: Stated complaint: FALL Other details as noted in HPI Comment: All other systems reviewed and negative Respiratory: denies: shortness of breath Cardiovascular: denies: chest pain Gastrointestinal: denies: nausea, vomiting Musculoskeletal: denies: joint swelling, arthralgia Neurological: denies: headache, weakness, numbness ED Past Medical Hx - Past Medical History Previous Medical History?: Yes Hx Hypertension: Yes Hx Congestive Heart Failure: Yes Hx Renal Disease: Yes Additional medical history: Afib - Surgical History Past Surgical History?: No - Social History Smoking Status: Never Smoker Substance Use Type: Prescribed - Medications Home Medications: Home Medications Medication Instructions Recorded Confirmed Last Taken Type Aspirin [Aspirin EC] 81 mg PO DAILY 04/21/18 04/21/18 Unknown History Cyanocobalamin (Vitamin B-12) 1,000 mcg PO DAILY 04/21/18 04/21/18 Unknown History [Vitamin B-12] Digoxin [Lanoxin] 0.125 mg PO DAILY 04/21/18 04/21/18 Unknown History Ondansetron [Zofran Odt] 4 mg PO Q8HR 04/21/18 04/21/18 Unknown History Sodium Bicarbonate 325 mg PO DAILY 04/21/18 04/21/18 Unknown History ED Physical Exam - General Limitations: Altered Mental Status General appearance: alert, in no apparent distress - Head Head exam: Present: other (4 cm hematoma to right forehead) - Eye Eye exam: Present: normal appearance, PERRL, EOMI - Neck Neck exam: Present: normal inspection, full ROM. Absent: tenderness - Respiratory Respiratory exam: Present: normal lung sounds bilaterally. Absent: respiratory distress - Cardiovascular Cardiovascular Exam: Present: regular rate, other (irregular rhythm) - GI/Abdominal GI/Abdominal exam: Present: soft. Absent: tenderness - Extremities Exam Extremities exam: Present: normal inspection - Neurological Exam Neurological exam: Present: alert - Psychiatric Psychiatric exam: Present: normal affect, normal mood - Skin Skin exam: Present: warm, dry, intact, normal color ED Course Vital Signs 04/27/18 04/27/18 04:06 04:20 Temperature 98.3 F Pulse Rate 111 H Respiratory 16 Rate Blood Pressure 113/88 O2 Sat by Pulse 100 100 Oximetry - Lab Data Result diagrams: 04/27/18 04:34 Lab Results 04/27/18 04/27/18 Range/Units 04:34 04:34 WBC 4.6 (4.5-11.0) K/mm3 RBC 4.45 (3.65-5.03) M/mm3 Hgb 14.7 H (10.1-14.3) gm/dl Hct 43.0 H (30.3-42.9) % MCV 97 (79-97) fl MCH 33 H (28-32) pg MCHC 34 (30-34) % RDW 15.0 (13.2-15.2) % Plt Count 261 (140-440) K/mm3 Lymph % (Auto) 41.0 H (13.4-35.0) % [place] % (Auto) 11.9 H (0.0-7.3) % Eos % (Auto) 1.3 (0.0-4.3) % Baso % (Auto) 0.6 (0.0-1.8) % Lymph # 1.9 (1.2-5.4) K/mm3 [place] # 0.5 (0.0-0.8) K/mm3 Eos # 0.1 (0.0-0.4) K/mm3 Baso # 0.0 (0.0-0.1) K/mm3 Seg Neutrophils % 45.2 (40.0-70.0) % Seg Neutrophils # 2.1 (1.8-7.7) K/mm3 PT 19.0 H (12.2-14.9) Sec. INR 1.53 H (0.87-1.13) APTT 31.6 (24.2-36.6) Sec. - Radiology Data Radiology results: report reviewed, image reviewed - Medical Decision Making 83-year-old female, on Coumadin, status post fall at home. Patient with hematoma to forehead. Denies all pain. Head CT negative. Mentation is normal , no neuro deficits. Will discharge at this time. - Differential Diagnosis contusion, intracranial bleed, skull fracture Critical care attestation.: If time is entered above; I have spent that time in minutes in the direct care of this critically ill patient, excluding procedure time. ED Disposition Clinical Impression: Head injury, Anticoagulated on Coumadin Disposition: - TO HOME OR SELFCARE Is pt being admited?: No Condition: Stable Instructions: Minor Head Injury (ED) Additional Instructions: Return to the ER for any signs of any changes in behavior, severe pain, or vomiting. Referrals: PRIMARY CARE, [Primary Care Provider] - 3-5 Days Time of Disposition: 05:18
[2018-04-27 04:42] LABS: Basophils % (Auto) 0.6 % (0.0-1.8); Eosinophils # (Auto) 0.1 K/mm3 (0.0-0.4); Eosinophils % (Auto) 1.3 % (0.0-4.3); Hemoglobin 14.7 gm/dl (10.1-14.3); Lymphocytes # (Auto) 1.9 K/mm3 (1.2-5.4); Mean Corpuscular HGB Conc 34 % (30-34); Mean Corpuscular Hemoglobin 33 pg (28-32); Mean Corpuscular Volume 97 fl (79-97); Monocytes # (Auto) 0.5 K/mm3 (0.0-0.8); Monocytes % (Auto) 11.9 % (0.0-7.3); Platelet Count 261 K/mm3 (140-440); Red Blood Count 4.45 M/mm3 (3.65-5.03)
[2018-04-27 04:52] LABS: INR 1.53 (0.87-1.13)
[2018-04-27 04:53] LABS: Partial Thromboplastin Time 31.6 Sec. (24.2-36.6)
--- NOTE | 2018-04-27 05:07 | Cat Scan Report ---
FINAL REPORT PROCEDURE: CT HEAD/BRAIN WO CON TECHNIQUE: Computerized tomography of the head was performed without contrast material. HISTORY: head injury, on coumadin COMPARISON: 04/24/2018 FINDINGS: Skull and scalp: There is right frontal scalp soft tissue swelling. There is no skull fracture.. Paranasal sinuses: There is fluid in the left maxillary sinus.. Ventricles and subarachnoid spaces: There is moderate central and cortical atrophy. There is no hydrocephalus or asymmetry.. Cerebrum: No evidence of hemorrhage, acute infarction or mass. There is chronic periventricular deep white matter ischemic gliosis. There are physiologic calcifications in the basal ganglia. Cerebellum and brainstem: No evidence of hemorrhage, acute infarction or mass. Vasculature: There are faint vascular calcifications.. Comments: None. IMPRESSION: There is right frontal scalp swelling. There is no skull fracture or intracranial hemorrhage.
[2018-04-27 05:54] VITALS: BP 127/58
== END 2018-04-27 05:53 | disposition home or self-care (01) ==
LOC: ED 04:03
DX: S09.90XA Unspecified injury of head, initial encounter (principal); I10 Essential (primary) hypertension; I50.9 Heart failure, unspecified; I48.91 Unspecified atrial fibrillation; Z79.01 Long term (current) use of anticoagulants; Z79.82 Long term (current) use of aspirin; W06.XXXA Fall from bed, initial encounter; Y93.89 Activity, other specified; Y92.098 Other place in other non-institutional residence as the place of occurrence of the external cause; Y99.8 Other external cause status
CPT/HCPCS: 36415; 70450; 85025; 85610; 85730

== ENCOUNTER 2018-04-29 20:34 | Inpatient (IN) | payer MEDICARE ==
[2018-04-29] MEDS ORDERED: NACL 0.9% 1000 ML IV ONE (20:53)
[2018-04-29] MEDS ORDERED: ATIVAN IV STA (20:55)
[2018-04-29] MEDS ORDERED: HALDOL IM STA (20:55)
[2018-04-29] MEDS ORDERED: VANCOMYCIN VIAL IV ONE (20:57)
--- NOTE | 2018-04-29 20:58 | Emergency Department Report ---
ED General Adult HPI - General Chief complaint: Altered Mental Status Stated complaint: RECTAL BLEEDING Time Seen by Provider: 04/29/18 20:36 Source: family, EMS (ems notes not available at time of chart dictation), RN notes reviewed, old records reviewed Mode of arrival: Stretcher Limitations: Altered Mental Status - History of Present Illness Initial comments: This is an 83-year-old female. Her past medical history includes atrial fibrillation on Coumadin, diastolic congestive heart failure with a recent echocardiogram which demonstrated an ejection fraction of 50-55%, CK D, dementia , currently on home hospice. The patient is brought to the hospital by her family for evaluation of agitation, and rectal bleeding. This is constant and does not appear to have exacerbating or relieving factors. Upon arrival to the ER, the patient is demented, and agitated. She is unable to describe exacerbating or relieving factors, radiation, or qualitative nature of her symptoms. Per family indicates that she appears more agitated and is constipated. They indicate that she stopped taking her medications orally, and that they attempted rectal Haldol at home, with no success. Patient's family did indicate that goals of care include comfort, preservation of DVT, and DO NOT RESUSCITATE, DO NOT INTUBATE. Family is amenable acceptable to IV fluids, pain medication, and antibiotics. Extensive discussion had with family, and they are unable to hospitalization, but have requested DO NOT RESUSCITATE, DO NOT INTUBATE. I also informed the family that given the patient's underlying dementia and agitation, she would likely require chemical and medical/physical restraints for her safety and staff safety. Family verbalized understanding and gave consent for this. The patient's home hospice veterans contact representative/nurse also came to the emergency room , I discussed this with the family. The family has requested hospitalization for IV antibiotics given acute febrile illness, and they therefore understands that patient's hospice privileges will be temporarily rescinded. In the emergency room, patient is found to be in A. fib with RVR, with the stool , fever, tachycardia, lactic acidosis. Patient is initiated on sepsis protocol. INR is 1.3, so patient is given desmopressin, and vitamin K. Discussed with gastroenterology, Dr. Dumas, who agrees to see the patient in consultation. We will withhold fresh frozen plasma at this time, as the intrinsic INR of fresh frozen plasma is typically 1.5-1.6, and will likely not have any therapeutic effect on the patient that will be clinically relevant. Engaged family in the discussion and consider discontinuation of anticoagulation given that risks seemed to outweigh benefits. Fever and tachycardia is appreciated, rapid A. fib is appreciated, however given underlying clinical picture, patient appears to be volume depleted, and it is my opinion that the patient will not benefit from negative inotropic, and will benefit from IV fluids and antipyretic medication. CT scan of the brain, abdomen and pelvis pending x ray chest is pending at this time. -: This afternoon Quality: other Consistency: other Improves with: other Worsens with: other Associated Symptoms: confusion, fever/chills, loss of appetite, malaise, weakness - Related Data Home Medications Medication Instructions Recorded Confirmed Last Taken Aspirin [Aspirin EC] 81 mg PO DAILY 04/21/18 04/21/18 Unknown Cyanocobalamin (Vitamin B-12) 1,000 mcg PO DAILY 04/21/18 04/21/18 Unknown [Vitamin B-12] Digoxin [Lanoxin] 0.125 mg PO DAILY 04/21/18 04/21/18 Unknown Ondansetron [Zofran Odt] 4 mg PO Q8HR 04/21/18 04/21/18 Unknown Sodium Bicarbonate 325 mg PO DAILY 04/21/18 04/21/18 Unknown Allergies Allergy/AdvReac Type Severity Reaction Status Date / Time No Known Allergies Allergy Unverified 03/14/17 10:25 ED Review of Systems ROS: Stated complaint: RECTAL BLEEDING Other details as noted in HPI Comment: Unobtainable due to pts medical conditions ED Past Medical Hx - Past Medical History Hx Hypertension: Yes Hx Congestive Heart Failure: Yes Hx Renal Disease: Yes Additional medical history: Afib - Social History Smoking Status: Never Smoker Substance Use Type: None - Medications Home Medications: Home Medications Medication Instructions Recorded Confirmed Last Taken Type Aspirin [Aspirin EC] 81 mg PO DAILY 04/21/18 04/21/18 Unknown History Cyanocobalamin (Vitamin B-12) 1,000 mcg PO DAILY 04/21/18 04/21/18 Unknown History [Vitamin B-12] Digoxin [Lanoxin] 0.125 mg PO DAILY 04/21/18 04/21/18 Unknown History Ondansetron [Zofran Odt] 4 mg PO Q8HR 04/21/18 04/21/18 Unknown History Sodium Bicarbonate 325 mg PO DAILY 04/21/18 04/21/18 Unknown History ED Physical Exam - General Limitations: Altered Mental Status, Physical Limitation General appearance: in distress - Head Head exam: Present: normocephalic - Eye Eye exam: Present: normal appearance - ENT ENT exam: Present: mucous membranes dry - Neck Neck exam: Present: normal inspection - Respiratory Respiratory exam: Present: decreased breath sounds - Cardiovascular Cardiovascular Exam: Present: tachycardia, irregular rhythm, normal heart sounds - GI/Abdominal GI/Abdominal exam: Present: soft. Absent: distended, tenderness, guarding, rebound, rigid, pulsatile mass - Rectal Rectal exam: Present: normal inspection, heme (+) stool, bloody stool - Extremities Exam Extremities exam: Present: normal inspection, full ROM. Absent: tenderness - Back Exam Back exam: Present: normal inspection, full ROM. Absent: paraspinal tenderness , vertebral tenderness - Neurological Exam Neurological exam: Present: altered, other (patient is demented. Moving 4 extremities. Unable to complete detailed neurologic examination secondary to underlying dementia.) - Psychiatric Psychiatric exam: Present: anxious - Skin Skin exam: Present: dry, intact ED Course Vital Signs 04/29/18 04/29/18 20:47 21:00 Temperature 100.8 F H Pulse Rate 143 H 128 H Respiratory 19 Rate Blood Pressure 150/91 O2 Sat by Pulse 95 Oximetry - Reevaluation(s) Reevaluation #1: 04/29/18 22:49 CT scan of the brain is negative for acute disease. CT scan of abdomen and pelvis suggests proctitis. The Hospital physician, Dr. Garcia accepted the patient to the medical service. ED Medical Decision Making - Lab Data Result diagrams: 04/29/18 21:21 04/29/18 21:21 Vital Signs 04/29/18 04/29/18 20:47 21:00 Temperature 100.8 F H Pulse Rate 143 H 128 H Respiratory 19 Rate Blood Pressure 150/91 O2 Sat by Pulse 95 Oximetry Temp Pulse Resp BP Pulse Ox 100.8 F H 128 H 19 150/91 95 04/29/18 20:47 04/29/18 21:00 04/29/18 20:47 04/29/18 20:47 04/29/18 20:47 Lab Results 04/29/18 04/29/18 04/29/18 Range/Units 21:21 21:21 21:21 WBC 10.5 (4.5-11.0) K/mm3 RBC 4.01 (3.65-5.03) M/mm3 Hgb 13.7 (10.1-14.3) gm/dl Hct 38.4 (30.3-42.9) % MCV 96 (79-97) fl MCH 34 H (28-32) pg MCHC 36 H (30-34) % RDW 15.1 (13.2-15.2) % Plt Count 206 (140-440) K/mm3 Lymph % (Auto) 7.0 L (13.4-35.0) % [place] % (Auto) 5.2 (0.0-7.3) % Eos % (Auto) 0.1 (0.0-4.3) % Baso % (Auto) 0.4 (0.0-1.8) % Lymph # 0.7 L (1.2-5.4) K/mm3 [place] # 0.5 (0.0-0.8) K/mm3 Eos # 0.0 (0.0-0.4) K/mm3 Baso # 0.0 (0.0-0.1) K/mm3 Seg Neutrophils % 87.3 H (40.0-70.0) % Seg Neutrophils # 9.2 H (1.8-7.7) K/mm3 PT 17.0 H (12.2-14.9) Sec. INR 1.31 H (0.87-1.13) APTT (24.2-36.6) Sec. Sodium (137-145) mmol/L Potassium (3.6-5.0) mmol/L Chloride (98-107) mmol/L Carbon Dioxide (22-30) mmol/L Anion Gap mmol/L BUN (7-17) mg/dL Creatinine (0.7-1.2) mg/dL Estimated GFR ml/min BUN/Creatinine Ratio % Glucose (65-100) mg/dL Lactic Acid 7.50 H* (0.7-2.0) mmol/L Calcium (8.4-10.2) mg/dL Magnesium (1.7-2.3) mg/dL Total Bilirubin (0.1-1.2) mg/dL AST (5-40) units/L ALT (7-56) units/L Alkaline Phosphatase (35-129) units/L Total Creatine Kinase (30-135) units/L Total Protein (6.3-8.2) g/dL Albumin (3.9-5) g/dL Albumin/Globulin Ratio % Digoxin (0.9-2.0) ng/mL 04/29/18 04/29/18 04/29/18 Range/Units 21:21 21:21 21:21 WBC (4.5-11.0) K/mm3 RBC (3.65-5.03) M/mm3 Hgb (10.1-14.3) gm/dl Hct (30.3-42.9) % MCV (79-97) fl MCH (28-32) pg MCHC (30-34) % RDW (13.2-15.2) % Plt Count (140-440) K/mm3 Lymph % (Auto) (13.4-35.0) % [place] % (Auto) (0.0-7.3) % Eos % (Auto) (0.0-4.3) % Baso % (Auto) (0.0-1.8) % Lymph # (1.2-5.4) K/mm3 [place] # (0.0-0.8) K/mm3 Eos # (0.0-0.4) K/mm3 Baso # (0.0-0.1) K/mm3 Seg Neutrophils % (40.0-70.0) % Seg Neutrophils # (1.8-7.7) K/mm3 PT (12.2-14.9) Sec. INR (0.87-1.13) APTT (24.2-36.6) Sec. Sodium 140 (137-145) mmol/L Potassium 4.2 D (3.6-5.0) mmol/L Chloride 96.7 L (98-107) mmol/L Carbon Dioxide 20 L (22-30) mmol/L Anion Gap 28 mmol/L BUN 25 H (7-17) mg/dL Creatinine 2.4 H (0.7-1.2) mg/dL Estimated GFR 23 ml/min BUN/Creatinine Ratio 10 % Glucose 145 H (65-100) mg/dL Lactic Acid (0.7-2.0) mmol/L Calcium 10.5 H (8.4-10.2) mg/dL Magnesium 2.00 (1.7-2.3) mg/dL Total Bilirubin 0.60 (0.1-1.2) mg/dL AST 23 (5-40) units/L ALT 12 (7-56) units/L Alkaline Phosphatase 72 (35-129) units/L Total Creatine Kinase 85 (30-135) units/L Total Protein 8.2 (6.3-8.2) g/dL Albumin 4.1 (3.9-5) g/dL Albumin/Globulin Ratio 1.0 % Digoxin 0.8 L (0.9-2.0) ng/mL - EKG Data -: EKG Interpreted by Me - EKG Data 04/29/18 22:28 Atrial fibrillation, 125 bpm, borderline rightward axis, low voltage, poor R wave progression, motion artifact, this EKG is not a STEMI, grossly unchanged from prior from April 21. - Radiology Data Radiology results: pending Critical Care Time: Yes Critical care time in (mins) excluding proc time.: 45 Critical care attestation.: If time is entered above; I have spent that time in minutes in the direct care of this critically ill patient, excluding procedure time. ED Disposition Clinical Impression: Atrial fibrillation with RVR, Altered mental status, SIRS (systemic inflammatory response syndrome), Rectal bleeding Disposition: OP ADMIT IP TO THIS HOSP Is pt being admited?: Yes Condition: Poor Referrals: PRIMARY CARE, [Primary Care Provider] - 3-5 Days
[2018-04-29] MEDS ORDERED: TYLENOL PR ONE (21:00)
[2018-04-29] MEDS ORDERED: MAXIPIME/NS 1 GM/100 ML 1 GM/100 ML BAG IV ONE (21:30)
[2018-04-29 21:43] LABS: Basophils % (Auto) 0.4 % (0.0-1.8); Eosinophils % (Auto) 0.1 % (0.0-4.3); Hematocrit 38.4 % (30.3-42.9); Hemoglobin 13.7 gm/dl (10.1-14.3); Lymphocytes # (Auto) 0.7 K/mm3 (1.2-5.4); Mean Corpuscular HGB Conc 36 % (30-34); Mean Corpuscular Hemoglobin 34 pg (28-32); Mean Corpuscular Volume 96 fl (79-97); Monocytes # (Auto) 0.5 K/mm3 (0.0-0.8); Monocytes % (Auto) 5.2 % (0.0-7.3); Red Blood Count 4.01 M/mm3 (3.65-5.03); Red Cell Distribution Width 15.1 % (13.2-15.2)
[2018-04-29 21:45] LABS: Platelet Count 206 K/mm3 (140-440)
[2018-04-29 21:48] LABS: INR 1.31 (0.87-1.13)
[2018-04-29 21:53] LABS: Albumin 4.1 g/dL (3.9-5); Calcium 10.5 mg/dL (8.4-10.2)
[2018-04-29] MEDS ORDERED: VANCOMYCIN/NS 1 GM/250 ML 1 GM/250 ML BAG IV ONE (22:00)
[2018-04-29] MEDS ORDERED: DDAVP IV ONE ×2 (22:17→22:30)
[2018-04-29] MEDS ORDERED: VITAMIN K (ADULT ONLY) SUB-Q ONE (22:20)
--- NOTE | 2018-04-29 22:22 | Cat Scan Report ---
FINAL REPORT PROCEDURE: CT HEAD/BRAIN WO CON TECHNIQUE: Computerized tomography of the head was performed without contrast material. HISTORY: ams COMPARISON: No prior studies are available for comparison. FINDINGS: Skull and scalp: Mild degree right frontal scalp swelling is noted.. Paranasal sinuses: Mucosal thickening is noted involving left maxillary sinus.. Ventricles and subarachnoid spaces: Are prominent consistent with cerebral atrophy appropriate for patient's age.. Cerebrum: There is moderate degree bilateral cerebral nonspecific white matter hypodensity most likely representing chronic microangiopathy. An acute intra-axial or extra-axial hemorrhage or mass effect is not identified.. Cerebellum and brainstem: No evidence of hemorrhage, acute infarction or mass. Vasculature: Atherosclerotic calcification is noted involving internal carotid and vertebral arteries.. Comments: None. IMPRESSION: No acute intracranial abnormality Mild degree right frontal scalp swelling Chronic left maxillary sinusitis
[2018-04-29] MEDS ORDERED: NACL 0.9% IV ONE (22:30)
--- NOTE | 2018-04-29 22:37 | Cat Scan Report ---
FINAL REPORT PROCEDURE: CT ABDOMEN PELVIS WO CON TECHNIQUE: Computerized axial tomography of the abdomen and pelvis was performed without intravenous contrast. This study is performed without intravascular contrast material and its sensitivity for abdominal and pelvic pathology, including neoplasms, inflammation, abscess, free fluid, thrombosis, arterial dissection and infarction, is reduced compared with a contrast enhanced study. HISTORY: abd pain n/v COMPARISON: No prior studies are available for comparison. FINDINGS: This study is limited due to streak artifacts from the arms. There is mild cardiomegaly with coronary arterial calcification. Minimal pericardial effusion is noted. Liver, spleen, and adrenal glands are within normal limits. Bilateral kidneys demonstrate normal density without calculi or hydronephrosis. Urinary bladder demonstrates normal outlines. Aorta is of normal caliber. There is no free fluid or free air. Gallbladder is unremarkable. Small bowel loops are within normal limits. Multiple colonic diverticula are noted without evidence of diverticulitis. Appendix is normal. There is mild degree circumferential thickening of distal rectal iraheta. Degenerative changes are noted involving the lumbar spine resulting in spinal canal stenosis at L4-5 and L5-S1. Vertebral height is normal. IMPRESSION: Colonic diverticulosis without evidence of diverticulitis Circumferential thickening of distal rectal iraheta may represent proctitis. Clinical correlation is recommended. Mild cardiomegaly with coronary arterial calcification Minimal pericardial effusion..
--- NOTE | 2018-04-29 23:09 | XRay Report ---
FINAL REPORT PROCEDURE: XR CHEST 1V AP TECHNIQUE: Chest radiograph anteroposterior view. CPT 47771 HISTORY: fever sepsis COMPARISON: No prior studies are available for comparison. FINDINGS: Heart: Normal. Mediastinum/Vessels: Normal. Lungs/Pleural space: Normal. Bony thorax: No acute osseous abnormality. Life support devices: None. IMPRESSION: No acute cardiopulmonary abnormality.
[2018-04-29] MEDS ORDERED: LOPRESSOR PO ONE (23:39)
--- NOTE | 2018-04-29 23:44 | History and Physical Report ---
History of Present Illness Date of examination: 04/29/18 History of present illness: 83-year-old woman with a history of CHF, chronic kidney disease, A. newton was brought to the emergency room for evaluation for rectal bleed. In the emergency room she received vitamin K, desmopressin. She also received Ativan and Haldol and she is now sedated. A review of systems and history is unobtainable, the patient was on home hospice PAST MEDICAL HISTORY: CHF, chronic kidney disease, A. fib PAST SURGICAL HISTORY: None SOCIAL HISTORY: No alcohol, no drugs, tobacco FAMILY HISTORY: Hypertension Medications and Allergies Allergies Allergy/AdvReac Type Severity Reaction Status Date / Time No Known Allergies Allergy Unverified 03/14/17 10:25 Home Medications Medication Instructions Recorded Confirmed Last Taken Type Aspirin [Aspirin EC] 81 mg PO DAILY 04/21/18 04/21/18 Unknown History Cyanocobalamin (Vitamin B-12) 1,000 mcg PO DAILY 04/21/18 04/21/18 Unknown History [Vitamin B-12] Digoxin [Lanoxin] 0.125 mg PO DAILY 04/21/18 04/21/18 Unknown History Ondansetron [Zofran Odt] 4 mg PO Q8HR 04/21/18 04/21/18 Unknown History Sodium Bicarbonate 325 mg PO DAILY 04/21/18 04/21/18 Unknown History Exam - Physical Exam Narrative exam: Gen. appearance: Patient lying in bed, no apparent distress HEENT: Normocephalic, atraumatic, pupils equally round and reactive to light, extraocular movement intact, and no sclericterus,. No JVD or thyromegaly or nodule,neck supple, no carotid bruit ,mucous membranes moist, no exudate or erythema Heart: S1, S2, regular rate and rhythm Lungs: Clear bilaterally, breathing comfortable Abdomen: Positive bowel sounds, non-tender, nondistended, no organomegaly Extremity:no edema cyanosis, clubbing Skin: no rash, dry, warm Neuro: Sedated - Constitutional Vitals: Temp Pulse Resp BP Pulse Ox 100.8 F H 128 H 33 H 150/91 49 L 04/29/18 20:47 04/29/18 22:45 04/29/18 22:45 04/29/18 20:47 04/29/18 22:30 Results - Labs CBC & Chem 7: 04/30/18 03:11 04/29/18 21:21 Labs: Abnormal lab results 04/29/18 04/29/18 04/29/18 Range/Units 21:21 21:21 21:21 MCH 34 H (28-32) pg MCHC 36 H (30-34) % Lymph % (Auto) 7.0 L (13.4-35.0) % Lymph # 0.7 L (1.2-5.4) K/mm3 Seg Neutrophils % 87.3 H (40.0-70.0) % Seg Neutrophils # 9.2 H (1.8-7.7) K/mm3 PT 17.0 H (12.2-14.9) Sec. INR 1.31 H (0.87-1.13) Chloride (98-107) mmol/L Carbon Dioxide (22-30) mmol/L BUN (7-17) mg/dL Creatinine (0.7-1.2) mg/dL Glucose (65-100) mg/dL Lactic Acid 7.50 H* (0.7-2.0) mmol/L Calcium (8.4-10.2) mg/dL Digoxin (0.9-2.0) ng/mL 04/29/18 04/29/18 04/29/18 Range/Units 21:21 21:21 22:18 MCH (28-32) pg MCHC (30-34) % Lymph % (Auto) (13.4-35.0) % Lymph # (1.2-5.4) K/mm3 Seg Neutrophils % (40.0-70.0) % Seg Neutrophils # (1.8-7.7) K/mm3 PT (12.2-14.9) Sec. INR (0.87-1.13) Chloride 96.7 L (98-107) mmol/L Carbon Dioxide 20 L (22-30) mmol/L BUN 25 H (7-17) mg/dL Creatinine 2.4 H (0.7-1.2) mg/dL Glucose 145 H (65-100) mg/dL Lactic Acid 7.00 H* (0.7-2.0) mmol/L Calcium 10.5 H (8.4-10.2) mg/dL Digoxin 0.8 L (0.9-2.0) ng/mL Assessment and Plan Assessment Rectal bleed Proctitis A. fib with RVR Chronic kidney disease Dementia Plan Admit to medicine Consult GI, check serial hemoglobin Start IV Flagyl, Levaquin IV Lopressor for rate control DVT prophylaxis
[2018-04-30] MEDS ORDERED: LOPRESSOR IV ONE ×2 (00:05→00:09)
[2018-04-30] MEDS ORDERED: LOPRESSOR IV PRN (00:07)
[2018-04-30] MEDS ORDERED: SODIUM CHLORIDE FLUSH SYRINGE 10 ML IV PRN (00:07)
[2018-04-30] MEDS ORDERED: TYLENOL PO PRN (00:07)
[2018-04-30] MEDS ORDERED: ZOFRAN IV PRN (00:07)
[2018-04-30 01:10] LABS: Hematocrit 38.7 % (30.3-42.9); Hemoglobin 12.8 gm/dl (10.1-14.3)
[2018-04-30] MEDS ORDERED: FLAGYL 500 MG/100 ML 500 MG/100 ML BAG IV ONE (01:47)
[2018-04-30] MEDS ORDERED: TYLENOL PR ONE (01:47)
[2018-04-30] MEDS ORDERED: VITAMIN K (ADULT ONLY) ONE (02:08)
[2018-04-30] MEDS: FLAGYL 500 MG/100 ML 500 MG/100 ML BAG IV SCH ×3 (02:34→18:11)
[2018-04-30 03:52] LABS: Hematocrit 37.9 % (30.3-42.9); Hemoglobin 12.9 gm/dl (10.1-14.3)
[2018-04-30 07:38] LABS: Calcium 9.2 mg/dL (8.4-10.2)
[2018-04-30 07:58] LABS: Hematocrit 37.5 % (30.3-42.9); Hemoglobin 12.3 gm/dl (10.1-14.3)
[2018-04-30] MEDS ORDERED: HumuLIN R IV STA (09:26)
[2018-04-30] MEDS ORDERED: D50W (25GM) Vial IV STA (09:27)
[2018-04-30] MEDS ORDERED: LEVAQUIN 500MG/100ML 500 MG/100 ML BAG IV SCH (10:00)
[2018-04-30] MEDS ORDERED: ROCEPHIN/NS 1 GM/50 ML 1 GM/50 ML BAG IV SCH (10:00)
[2018-04-30] MEDS ORDERED: LEVAQUIN 500MG/100ML 500 MG/100 ML BAG IV ONE (10:00)
[2018-04-30 10:10] LABS: INR 1.43 (0.87-1.13)
[2018-04-30] MEDS ORDERED: NACL 0.9% 500 ML 500 ML ONE ×2 (10:48→11:19)
[2018-04-30] MEDS ORDERED: HALDOL IM PRN (11:14)
[2018-04-30] MEDS ORDERED: LANOXIN IV NR (11:15)
[2018-04-30] MEDS ORDERED: D50W (25GM) Syringe IV ONE (12:00)
[2018-04-30] MEDS ORDERED: LOPRESSOR IV SCH (12:00)
--- NOTE | 2018-04-30 12:20 | Progress Note ---
Assessment and Plan Assessment and plan: Lower GI bleed with bright red blood per rectum. Patienty was on Coumadin. hol;d Coumnadin GI consulted H/H stable so far keep NPO Atrial fibrillation with rapid ventricular response. Start metoprolol 5mg iv Q6h resume Digoxin from home Hyperkalemia. Give Insulin Repeat tomorrow Chromic systolic CHF Toxic metabolic encephalopathy Proctitis seen on CT Abd. GI to see Fever on admission. Blood cultures ordered. Acute on CKD. Improving Full code status Discussed with daughter at bedside History Interval history: Bright red blood per rectum Hospitalist Physical - Physical exam Narrative exam: GEN: Not in acute distress, lying in bed, HEENT: Normocephalic, atraumatic, Neck: supple, No JVD Lungs: Clear to auscultation bilaterally, no crackles Heart:S1 and S2 irreg,irreg, rapid, no murmurs, rubs or gallop Abd:soft, tender, non distended,Normal bowel sounds Ext: No edema, no clubbing, no cyanosis Neuro: Lethargic - Constitutional Vitals: Temp Pulse Resp BP Pulse Ox 98.0 F 136 H 22 127/63 97 04/30/18 09:03 04/30/18 09:03 04/30/18 09:03 04/30/18 09:03 04/30/18 09:03 Results - Labs CBC & Chem 7: 04/30/18 07:13 04/30/18 06:55 Labs: Laboratory Last Values WBC 10.5 K/mm3 (4.5-11.0) 04/29/18 21:21 RBC 4.01 M/mm3 (3.65-5.03) 04/29/18 21:21 Hgb 12.3 gm/dl (10.1-14.3) 04/30/18 07:13 Hct 37.5 % (30.3-42.9) 04/30/18 07:13 MCV 96 fl (79-97) 04/29/18 21:21 MCH 34 pg (28-32) H 04/29/18 21:21 MCHC 36 % (30-34) H 04/29/18 21:21 RDW 15.1 % (13.2-15.2) 04/29/18 21:21 Plt Count 206 K/mm3 (140-440) 04/29/18 21:21 Lymph % (Auto) 7.0 % (13.4-35.0) L 04/29/18 21:21 Daniels % (Auto) 5.2 % (0.0-7.3) 04/29/18 21:21 Eos % (Auto) 0.1 % (0.0-4.3) 04/29/18 21:21 Baso % (Auto) 0.4 % (0.0-1.8) 04/29/18 21:21 Lymph # 0.7 K/mm3 (1.2-5.4) L 04/29/18 21:21 Daniels # 0.5 K/mm3 (0.0-0.8) 04/29/18 21:21 Eos # 0.0 K/mm3 (0.0-0.4) 04/29/18 21:21 Baso # 0.0 K/mm3 (0.0-0.1) 04/29/18 21:21 Seg Neutrophils % 87.3 % (40.0-70.0) H 04/29/18 21:21 Seg Neutrophils # 9.2 K/mm3 (1.8-7.7) H 04/29/18 21:21 PT 18.3 Sec. (12.2-14.9) H 04/30/18 09:50 INR 1.43 (0.87-1.13) H 04/30/18 09:50 APTT Sec. (24.2-36.6) 04/29/18 21:21 Sodium 140 mmol/L (137-145) 04/30/18 06:55 Potassium 5.5 mmol/L (3.6-5.0) H D 04/30/18 06:55 Chloride 106.0 mmol/L (98-107) 04/30/18 06:55 Carbon Dioxide 18 mmol/L (22-30) L 04/30/18 06:55 Anion Gap 22 mmol/L 04/30/18 06:55 BUN 21 mg/dL (7-17) H 04/30/18 06:55 Creatinine 1.8 mg/dL (0.7-1.2) H 04/30/18 06:55 Estimated GFR 32 ml/min 04/30/18 06:55 BUN/Creatinine Ratio 12 % 04/30/18 06:55 Glucose 123 mg/dL (65-100) H 04/30/18 06:55 Lactic Acid 4.70 mmol/L (0.7-2.0) H* 04/30/18 Unknown Calcium 9.2 mg/dL (8.4-10.2) 04/30/18 06:55 Magnesium 2.00 mg/dL (1.7-2.3) 04/29/18 21:21 Total Bilirubin 0.60 mg/dL (0.1-1.2) 04/29/18 21:21 AST 23 units/L (5-40) 04/29/18 21:21 ALT 12 units/L (7-56) 04/29/18 21:21 Alkaline Phosphatase 72 units/L (35-129) 04/29/18 21:21 Total Creatine Kinase 85 units/L (30-135) 04/29/18 21:21 Total Protein 8.2 g/dL (6.3-8.2) 04/29/18 21:21 Albumin 4.1 g/dL (3.9-5) 04/29/18 21:21 Albumin/Globulin Ratio 1.0 % 04/29/18 21:21 Digoxin 0.8 ng/mL (0.9-2.0) L 04/29/18 21:21 Blood Type O POSITIVE 04/29/18 22:27 Antibody Screen Negative 04/29/18 22:27
--- NOTE | 2018-04-30 12:23 | Consultation ---
History of Present Illness Consult date: 04/30/18 Requesting physician: BOGDAN BARILLAS Consult reason: atrial fibrillation History of present illness: The patient has a history of permanent atrial fibrillation for which she is on chronic anticoagulation with Coumadin. She was recently hospitalized at [facility] and reported to have sustained a fall 24 hours of discharge from the hospital. She was later discharged to hospice. She was brought to the ER by a family this time because she was confused and combative over the past 2 days. In addition, yesterday, her daughter noted rectal bleeding. Past History Past Medical History: atrial fib, arrhythmia (NSVT noted during recent hospitalization.), other (echocardiogram in April 2018 revealed an ejection fraction of 50-55% with RVSP of 47 mmHg, CKD.) Social history: denies: smoking, alcohol abuse Family history: no significant family history Medications and Allergies Allergies Allergy/AdvReac Type Severity Reaction Status Date / Time No Known Allergies Allergy Unverified 03/14/17 10:25 Home Medications Medication Instructions Recorded Confirmed Last Taken Type Aspirin [Aspirin EC] 81 mg PO DAILY 04/21/18 04/21/18 Unknown History Cyanocobalamin (Vitamin B-12) 1,000 mcg PO DAILY 04/21/18 04/21/18 Unknown History [Vitamin B-12] Digoxin [Lanoxin] 0.125 mg PO DAILY 04/21/18 04/21/18 Unknown History Ondansetron [Zofran Odt] 4 mg PO Q8HR 04/21/18 04/21/18 Unknown History Sodium Bicarbonate 325 mg PO DAILY 04/21/18 04/21/18 Unknown History Active Meds: Active Medications Acetaminophen (Tylenol) 650 mg PO Q4H PRN PRN Reason: Pain MILD(1-3)/Fever >100.5/LR Haloperidol Lactate (Haldol) 5 mg IM Q6H PRN PRN Reason: Agitation Metronidazole (Flagyl 500 Mg/100 Ml) 500 mg in 100 mls @ 100 mls/hr IV Q8H [facility] ; Protocol Last Admin: 04/30/18 11:07 Dose: 100 mls/hr Levofloxacin/Dextrose (Levaquin 250mg/50ml) 250 mg in 50 mls @ 50 mls/hr IV Q48HR [facility]; Protocol Metoprolol Tartrate (Lopressor) 5 mg IV Q6HR [facility] Ondansetron HCl (Zofran) 4 mg IV Q8H PRN PRN Reason: Nausea And Vomiting Sodium Chloride (Sodium Chloride Flush Syringe 10 Ml) 10 ml IV BID BYRON Sodium Chloride (Sodium Chloride Flush Syringe 10 Ml) 10 ml IV PRN PRN PRN Reason: LINE FLUSH Review of Systems ROS unobtainable: due to mental status Physical Examination Vital Signs Last Vital Signs Temp 98.0 F 04/30/18 09:03 Pulse 136 H 04/30/18 09:03 Resp 22 04/30/18 09:03 BP 127/63 04/30/18 09:03 Pulse Ox 97 04/30/18 09:03 General appearance: no acute distress HEENT: Positive: EOMI, Normocephaly, Mucus Membranes Moist Neck: Positive: neck supple, trachea midline Cardiac: Positive: irregularly irregular, S1/S2 Lungs: Positive: clear to auscultation Neuro: Positive: Other (Confused) Abdomen: Positive: Soft, Active Bowel Sounds. Negative: Tender Skin: Positive: Clear. Negative: Rash Musculoskeletal: other (difficult to assess) Extremities: Absent: edema Results 04/30/18 07:13 04/30/18 06:55 Cardiac Enzymes 04/29/18 Range/Units 21:21 AST 23 (5-40) units/L Coagulation 04/29/18 04/30/18 Range/Units 21:21 09:50 PT 17.0 H 18.3 H (12.2-14.9) Sec. INR 1.31 H 1.43 H (0.87-1.13) APTT (24.2-36.6) Sec. CBC 04/29/18 04/30/18 04/30/18 Range/Units 21:21 00:56 03:11 WBC 10.5 (4.5-11.0) K/mm3 RBC 4.01 (3.65-5.03) M/mm3 Hgb 13.7 12.8 12.9 (10.1-14.3) gm/dl Hct 38.4 38.7 37.9 (30.3-42.9) % Plt Count 206 (140-440) K/mm3 Lymph # 0.7 L (1.2-5.4) K/mm3 [place] # 0.5 (0.0-0.8) K/mm3 Eos # 0.0 (0.0-0.4) K/mm3 Baso # 0.0 (0.0-0.1) K/mm3 04/30/18 Range/Units 07:13 WBC (4.5-11.0) K/mm3 RBC (3.65-5.03) M/mm3 Hgb 12.3 (10.1-14.3) gm/dl Hct 37.5 (30.3-42.9) % Plt Count (140-440) K/mm3 Lymph # (1.2-5.4) K/mm3 [place] # (0.0-0.8) K/mm3 Eos # (0.0-0.4) K/mm3 Baso # (0.0-0.1) K/mm3 Comprehensive Metabolic Panel 04/29/18 04/30/18 Range/Units 21:21 06:55 Sodium 140 140 (137-145) mmol/L Potassium 4.2 D 5.5 H D (3.6-5.0) mmol/L Chloride 96.7 L 106.0 (98-107) mmol/L Carbon Dioxide 20 L 18 L (22-30) mmol/L BUN 25 H 21 H (7-17) mg/dL Creatinine 2.4 H 1.8 H (0.7-1.2) mg/dL Glucose 145 H 123 H (65-100) mg/dL Calcium 10.5 H 9.2 (8.4-10.2) mg/dL AST 23 (5-40) units/L ALT 12 (7-56) units/L Alkaline Phosphatase 72 (35-129) units/L Total Protein 8.2 (6.3-8.2) g/dL Albumin 4.1 (3.9-5) g/dL - Imaging and Cardiology EKG: pending Assessment and Plan Initiate IV cardizem drip for rate control while patient is NPO. Oral AV blocking meds will be resumed once PO intake is re-established. I have discussed with the patient's family. Anticoagulation may be too risky at this time despite the risk of thromboembolic complications with atrial fibrillation. Discontinue anticoagulation. They understand the risk and agree with the plan. - Patient Problems (1) Rectal bleeding Current Visit: Yes Status: Acute (2) Permanent atrial fibrillation with rapid ventricular response Current Visit: Yes Status: Acute (3) Altered mental status Current Visit: Yes Status: Acute (4) Confusion Current Visit: Yes Status: Acute (5) NSVT (nonsustained ventricular tachycardia) Current Visit: Yes Status: Chronic (6) CKD (chronic kidney disease) Current Visit: Yes Status: Chronic Qualifiers: Chronic kidney disease stage: stage 4 (severe) Qualified Code(s): N18.4 - Chronic kidney disease, stage 4 (severe) (7) Dementia Current Visit: Yes Status: Chronic Qualifiers: Dementia behavioral disturbance: with behavioral disturbance
[2018-04-30] MEDS ORDERED: CARDIZEM IV ONE (13:12)
[2018-04-30 15:20] LABS: Hematocrit 37.4 % (30.3-42.9); Hemoglobin 12.4 gm/dl (10.1-14.3); Mean Corpuscular HGB Conc 33 % (30-34); Mean Corpuscular Hemoglobin 32 pg (28-32); Mean Corpuscular Volume 97 fl (79-97); Platelet Count 248 K/mm3 (140-440); Red Blood Count 3.84 M/mm3 (3.65-5.03); Red Cell Distribution Width 15.6 % (13.2-15.2)
[2018-04-30] MEDS: SODIUM CHLORIDE FLUSH SYRINGE 10 ML IV SCH (17:40)
[2018-04-30] MEDS ORDERED: CARDIZEM ONE (17:58)
[2018-04-30] MEDS: CARDIZEM 100 MG in D5W 80 ML IV SCH (18:31)
--- NOTE | 2018-04-30 19:04 | Consultation ---
History of Present Illness - Reason for Consult Consult date: 04/30/18 Rectal bleed - History of Present Illness Miss Yeh is an 83-year-old woman with dementia and multiple medical problems who was recently hospitalized from April 21 through April 22 with atrial fibrillation and dementia. She was discharged to home hospice. Yesterday, patient was apparently having problems with constipation and was given Epsom salts as well as a suppository. She subsequently developed rectal bleeding for a period of time and was brought to the emergency room. She did have a good result after the Epsom salts and suppository, according to the daughter who was present in the room. Another daughter, a retired nurse, was also on the phone. Currently, the patient is doing well and there are no obvious complaints. She is able to verbalize and denies complaints. Past History Past Medical History: atrial fib, arrhythmia (NSVT noted during recent hospitalization.), other (echocardiogram in April 2018 revealed an ejection fraction of 50-55% with RVSP of 47 mmHg, CKD.) Social history: denies: smoking, alcohol abuse Family history: no significant family history Medications and Allergies Allergies Allergy/AdvReac Type Severity Reaction Status Date / Time No Known Allergies Allergy Unverified 03/14/17 10:25 Home Medications Medication Instructions Recorded Confirmed Last Taken Type Aspirin [Aspirin EC] 81 mg PO DAILY 04/21/18 04/21/18 Unknown History Cyanocobalamin (Vitamin B-12) 1,000 mcg PO DAILY 04/21/18 04/21/18 Unknown History [Vitamin B-12] Digoxin [Lanoxin] 0.125 mg PO DAILY 04/21/18 04/21/18 Unknown History Ondansetron [Zofran Odt] 4 mg PO Q8HR 04/21/18 04/21/18 Unknown History Sodium Bicarbonate 325 mg PO DAILY 04/21/18 04/21/18 Unknown History Active Meds: Active Medications Acetaminophen (Tylenol) 650 mg PO Q4H PRN PRN Reason: Pain MILD(1-3)/Fever >100.5/LR Haloperidol Lactate (Haldol) 5 mg IM Q6H PRN PRN Reason: Agitation Last Admin: 04/30/18 18:41 Dose: 5 mg Metronidazole (Flagyl 500 Mg/100 Ml) 500 mg in 100 mls @ 100 mls/hr IV Q8H [facility] ; Protocol Last Admin: 04/30/18 18:11 Dose: 100 mls/hr Levofloxacin/Dextrose (Levaquin 250mg/50ml) 250 mg in 50 mls @ 50 mls/hr IV Q48HR [facility]; Protocol Diltiazem HCl 100 mg/ Dextrose 100 mls @ 5 mls/hr IV DIRECT [facility]; Protocol Last Admin: 04/30/18 18:31 Dose: 5 mg/hr, 5 mls/hr Ondansetron HCl (Zofran) 4 mg IV Q8H PRN PRN Reason: Nausea And Vomiting Sodium Chloride (Sodium Chloride Flush Syringe 10 Ml) 10 ml IV BID [facility] Last Admin: 04/30/18 17:40 Dose: 10 ml Sodium Chloride (Sodium Chloride Flush Syringe 10 Ml) 10 ml IV PRN PRN PRN Reason: LINE FLUSH Review of Systems ROS unobtainable: due to mental status Exam - Constitutional Vitals: Temp Pulse Resp BP Pulse Ox 98.1 F 132 H 18 132/58 98 04/30/18 16:08 04/30/18 16:08 04/30/18 16:08 04/30/18 16:08 04/30/18 16:08 General appearance: Present: no acute distress - EENT Eyes: Present: PERRL, EOM intact ENT: hearing intact - Respiratory Respiratory effort: normal Respiratory: bilateral: CTA - Cardiovascular Rhythm: irregularly irregular Heart Sounds: Present: S1 & S2 - Abdominal General gastrointestinal: Present: soft, non-tender - Rectal Rectal Exam: other (decreased tone, light yellow-brown stool, no masses or blood ) Results - Labs CBC & Chem 7: 04/30/18 14:52 04/30/18 06:55 Labs: Abnormal lab results 04/29/18 04/29/18 04/29/18 Range/Units 21:21 21:21 21:21 WBC (4.5-11.0) K/mm3 MCH 34 H (28-32) pg MCHC 36 H (30-34) % RDW (13.2-15.2) % Lymph % (Auto) 7.0 L (13.4-35.0) % Lymph # 0.7 L (1.2-5.4) K/mm3 Seg Neutrophils % 87.3 H (40.0-70.0) % Seg Neutrophils # 9.2 H (1.8-7.7) K/mm3 PT 17.0 H (12.2-14.9) Sec. INR 1.31 H (0.87-1.13) Potassium (3.6-5.0) mmol/L Chloride (98-107) mmol/L Carbon Dioxide (22-30) mmol/L BUN (7-17) mg/dL Creatinine (0.7-1.2) mg/dL Glucose (65-100) mg/dL Lactic Acid 7.50 H* (0.7-2.0) mmol/L Calcium (8.4-10.2) mg/dL Digoxin (0.9-2.0) ng/mL 04/29/18 04/29/18 04/29/18 Range/Units 21:21 21:21 22:18 WBC (4.5-11.0) K/mm3 MCH (28-32) pg MCHC (30-34) % RDW (13.2-15.2) % Lymph % (Auto) (13.4-35.0) % Lymph # (1.2-5.4) K/mm3 Seg Neutrophils % (40.0-70.0) % Seg Neutrophils # (1.8-7.7) K/mm3 PT (12.2-14.9) Sec. INR (0.87-1.13) Potassium (3.6-5.0) mmol/L Chloride 96.7 L (98-107) mmol/L Carbon Dioxide 20 L (22-30) mmol/L BUN 25 H (7-17) mg/dL Creatinine 2.4 H (0.7-1.2) mg/dL Glucose 145 H (65-100) mg/dL Lactic Acid 7.00 H* (0.7-2.0) mmol/L Calcium 10.5 H (8.4-10.2) mg/dL Digoxin 0.8 L (0.9-2.0) ng/mL 04/30/18 04/30/18 04/30/18 Range/Units 03:11 06:55 06:55 WBC (4.5-11.0) K/mm3 MCH (28-32) pg MCHC (30-34) % RDW (13.2-15.2) % Lymph % (Auto) (13.4-35.0) % Lymph # (1.2-5.4) K/mm3 Seg Neutrophils % (40.0-70.0) % Seg Neutrophils # (1.8-7.7) K/mm3 PT (12.2-14.9) Sec. INR (0.87-1.13) Potassium 5.5 H D (3.6-5.0) mmol/L Chloride (98-107) mmol/L Carbon Dioxide 18 L (22-30) mmol/L BUN 21 H (7-17) mg/dL Creatinine 1.8 H (0.7-1.2) mg/dL Glucose 123 H (65-100) mg/dL Lactic Acid 5.10 H* 3.60 H* (0.7-2.0) mmol/L Calcium (8.4-10.2) mg/dL Digoxin (0.9-2.0) ng/mL 04/30/18 04/30/18 04/30/18 Range/Units 08:08 09:50 14:52 WBC 12.2 H (4.5-11.0) K/mm3 MCH (28-32) pg MCHC (30-34) % RDW 15.6 H (13.2-15.2) % Lymph % (Auto) (13.4-35.0) % Lymph # (1.2-5.4) K/mm3 Seg Neutrophils % (40.0-70.0) % Seg Neutrophils # (1.8-7.7) K/mm3 PT 18.3 H (12.2-14.9) Sec. INR 1.43 H (0.87-1.13) Potassium (3.6-5.0) mmol/L Chloride (98-107) mmol/L Carbon Dioxide (22-30) mmol/L BUN (7-17) mg/dL Creatinine (0.7-1.2) mg/dL Glucose (65-100) mg/dL Lactic Acid 3.40 H* (0.7-2.0) mmol/L Calcium (8.4-10.2) mg/dL Digoxin (0.9-2.0) ng/mL 04/30/18 Range/Units Unknown WBC (4.5-11.0) K/mm3 MCH (28-32) pg MCHC (30-34) % RDW (13.2-15.2) % Lymph % (Auto) (13.4-35.0) % Lymph # (1.2-5.4) K/mm3 Seg Neutrophils % (40.0-70.0) % Seg Neutrophils # (1.8-7.7) K/mm3 PT (12.2-14.9) Sec. INR (0.87-1.13) Potassium (3.6-5.0) mmol/L Chloride (98-107) mmol/L Carbon Dioxide (22-30) mmol/L BUN (7-17) mg/dL Creatinine (0.7-1.2) mg/dL Glucose (65-100) mg/dL Lactic Acid 4.70 H* (0.7-2.0) mmol/L Calcium (8.4-10.2) mg/dL Digoxin (0.9-2.0) ng/mL Assessment and Plan 1. Rectal bleed - likely due to suppository and constipation. Patient was on Coumadin though her INR is not very high. She has had no further bleeding. Her hemoglobin is normal. I suspect the cause was anorectal in origin and possibly related to trauma, or hemorrhoids. I discussed this with the patient' s family members. We discussed colonoscopy. Family would like to return patient back to hospice and not proceed with any further testing for the bleeding. I have recommended that they ensure appropriate laxation by adding daily MiraLAX to her senna regimen. - We will sign off. Please call as needed.
[2018-05-01] MEDS: FLAGYL 500 MG/100 ML 500 MG/100 ML BAG IV SCH ×3 (01:05→16:50)
[2018-05-01 07:27] LABS: Basophils % (Auto) 0.2 % (0.0-1.8); Eosinophils % (Auto) 0.3 % (0.0-4.3); Hematocrit 32.6 % (30.3-42.9); Lymphocytes # (Auto) 1.3 K/mm3 (1.2-5.4); Lymphocytes % (Auto) 10.3 % (13.4-35.0); Mean Corpuscular HGB Conc 34 % (30-34); Mean Corpuscular Hemoglobin 33 pg (28-32); Mean Corpuscular Volume 97 fl (79-97); Monocytes # (Auto) 1.2 K/mm3 (0.0-0.8); Monocytes % (Auto) 9.8 % (0.0-7.3); Platelet Count 260 K/mm3 (140-440); Red Blood Count 3.37 M/mm3 (3.65-5.03); Red Cell Distribution Width 15.6 % (13.2-15.2)
[2018-05-01 07:45] LABS: INR 1.54 (0.87-1.13)
[2018-05-01 07:48] LABS: Calcium 9.6 mg/dL (8.4-10.2)
[2018-05-01] MEDS: CARDIZEM 100 MG in D5W 80 ML IV SCH (09:32)
[2018-05-01] MEDS: SODIUM CHLORIDE FLUSH SYRINGE 10 ML IV SCH ×3 (09:33→21:24)
[2018-05-01] MEDS: LEVAQUIN 250MG/50ML 250 MG/50 ML BAG IV SCH (09:38)
--- NOTE | 2018-05-01 12:31 | Progress Note ---
Assessment and Plan Per GI, family would like to return patient back to home hospice and not proceed with any further testing for the bleeding. Additionally, systemic anticoagulation has been discontinued in setting of recent rectal bleeding, dementia and per pt's families wishes. Initiate PO lopressor and d/c cardizem gtt. The patient has been seen in conjunction with Dr. Espinosa who agrees with the assessment and plan of care. - Patient Problems (1) Rectal bleeding Current Visit: Yes Status: Acute (2) Permanent atrial fibrillation with rapid ventricular response Current Visit: Yes Status: Acute (3) Altered mental status Current Visit: Yes Status: Acute (4) NSVT (nonsustained ventricular tachycardia) Current Visit: Yes Status: Chronic (5) CKD (chronic kidney disease) Current Visit: Yes Status: Chronic Qualifiers: Chronic kidney disease stage: stage 4 (severe) Qualified Code(s): N18.4 - Chronic kidney disease, stage 4 (severe) (6) Dementia Current Visit: Yes Status: Chronic Qualifiers: Dementia behavioral disturbance: with behavioral disturbance Subjective Date of service: 05/01/18 Principal diagnosis: AFib with RVR Interval history: pt resting comfortably in bed, nonverbal at baseline, daughter at bedside. tele reviewed - pt in AFib with mostly CVR overnight, a few bouts of RVR with HR 150- 160s noted this AM. Objective Last Vital Signs Temp 97.9 F 05/01/18 12:01 Pulse 100 H 05/01/18 12:01 Resp 18 05/01/18 12:01 BP 131/75 05/01/18 12:01 Pulse Ox 100 05/01/18 12:01 - Physical Examination General: No Apparent Distress, Other (withdrawn, nonverbal) HEENT: Positive: EOMI, Normocephaly, Mucus Membranes Moist Neck: Positive: neck supple, trachea midline Cardiac: Positive: irregularly irregular, S1/S2 Lungs: Positive: Decreased Breath Sounds Neuro: Positive: Other (withdrawn, nonverbal ) Abdomen: Positive: Soft, Active Bowel Sounds. Negative: Tender Skin: Positive: Clear. Negative: Rash Musculoskeletal: other (difficult to assess) Extremities: Absent: edema - Labs and Meds Coagulation 05/01/18 Range/Units 07:03 PT 19.4 H (12.2-14.9) Sec. INR 1.54 H (0.87-1.13) CBC 04/30/18 05/01/18 Range/Units 14:52 07:03 WBC 12.2 H 12.5 H (4.5-11.0) K/mm3 RBC 3.84 3.37 L (3.65-5.03) M/mm3 Hgb 12.4 11.0 (10.1-14.3) gm/dl Hct 37.4 32.6 (30.3-42.9) % Plt Count 248 260 (140-440) K/mm3 Lymph # 1.3 (1.2-5.4) K/mm3 [place] # 1.2 H (0.0-0.8) K/mm3 Eos # 0.0 (0.0-0.4) K/mm3 Baso # 0.0 (0.0-0.1) K/mm3 Comprehensive Metabolic Panel 05/01/18 Range/Units 07:03 Sodium 138 (137-145) mmol/L Potassium 3.7 D (3.6-5.0) mmol/L Chloride 102.2 (98-107) mmol/L Carbon Dioxide 17 L (22-30) mmol/L BUN 21 H (7-17) mg/dL Creatinine 1.9 H (0.7-1.2) mg/dL Glucose 83 (65-100) mg/dL Calcium 9.6 (8.4-10.2) mg/dL - Imaging and Cardiology EKG: image reviewed - Telemetry EKG Rhythm: Atrial Fibrillation - EKG Supraventricular dysrhythmia: atrial fibrillation
--- NOTE | 2018-05-01 13:07 | Progress Note ---
Assessment and Plan Assessment and plan: Lower GI bleed with bright red blood per rectum. Patienty was on Coumadin. Coumadin on hold GI consulted, evaluated patient H/H stable so far started on clear liquid. Conservative management-no plan for colonoscopy as per GI, they signed off. Atrial fibrillation with rapid ventricular response. Started on Cardizem drip by cardiology Hyperkalemia. now resolved after Insulin, Chromic systolic CHF Toxic metabolic encephalopathy Proctitis seen on CT Abd. GI following Cont Antibiotics- Levaquin, Flagyl Fever on admission. Blood cultures ordered. Acute on CKD. Full code status History Interval history: Presented with Bright red blood per rectum rapid afib Hospitalist Physical - Physical exam Narrative exam: GEN: Not in acute distress, lying in bed, HEENT: Normocephalic, atraumatic, Neck: supple, No JVD Lungs: Clear to auscultation bilaterally, no crackles Heart:S1 and S2 irreg,irreg, rapid, no murmurs, rubs or gallop Abd:soft, tender, non distended,Normal bowel sounds Ext: No edema, no clubbing, no cyanosis Neuro: confused, agitated, - Constitutional Vitals: Temp Pulse Resp BP Pulse Ox 97.9 F 100 H 18 131/75 100 05/01/18 12:01 05/01/18 12:01 05/01/18 12:01 05/01/18 12:01 05/01/18 12:01 General appearance: Present: no acute distress Results - Labs CBC & Chem 7: 05/01/18 07:03 05/01/18 07:03 Labs: Laboratory Last Values WBC 12.5 K/mm3 (4.5-11.0) H 05/01/18 07:03 RBC 3.37 M/mm3 (3.65-5.03) L 05/01/18 07:03 Hgb 11.0 gm/dl (10.1-14.3) 05/01/18 07:03 Hct 32.6 % (30.3-42.9) 05/01/18 07:03 MCV 97 fl (79-97) 05/01/18 07:03 MCH 33 pg (28-32) H 05/01/18 07:03 MCHC 34 % (30-34) 05/01/18 07:03 RDW 15.6 % (13.2-15.2) H 05/01/18 07:03 Plt Count 260 K/mm3 (140-440) 05/01/18 07:03 Lymph % (Auto) 10.3 % (13.4-35.0) L 05/01/18 07:03 Rogers % (Auto) 9.8 % (0.0-7.3) H 05/01/18 07:03 Eos % (Auto) 0.3 % (0.0-4.3) 05/01/18 07:03 Baso % (Auto) 0.2 % (0.0-1.8) 05/01/18 07:03 Lymph # 1.3 K/mm3 (1.2-5.4) 05/01/18 07:03 Rogers # 1.2 K/mm3 (0.0-0.8) H 05/01/18 07:03 Eos # 0.0 K/mm3 (0.0-0.4) 05/01/18 07:03 Baso # 0.0 K/mm3 (0.0-0.1) 05/01/18 07:03 Seg Neutrophils % 79.4 % (40.0-70.0) H 05/01/18 07:03 Seg Neutrophils # 9.9 K/mm3 (1.8-7.7) H 05/01/18 07:03 PT 19.4 Sec. (12.2-14.9) H 05/01/18 07:03 INR 1.54 (0.87-1.13) H 05/01/18 07:03 APTT Sec. (24.2-36.6) 04/29/18 21:21 Sodium 138 mmol/L (137-145) 05/01/18 07:03 Potassium 3.7 mmol/L (3.6-5.0) D 05/01/18 07:03 Chloride 102.2 mmol/L (98-107) 05/01/18 07:03 Carbon Dioxide 17 mmol/L (22-30) L 05/01/18 07:03 Anion Gap 23 mmol/L 05/01/18 07:03 BUN 21 mg/dL (7-17) H 05/01/18 07:03 Creatinine 1.9 mg/dL (0.7-1.2) H 05/01/18 07:03 Estimated GFR 30 ml/min 05/01/18 07:03 BUN/Creatinine Ratio 11 % 05/01/18 07:03 Glucose 83 mg/dL (65-100) 05/01/18 07:03 POC Glucose 95 (70-105) 05/01/18 06:45 Lactic Acid 4.70 mmol/L (0.7-2.0) H* 04/30/18 Unknown Calcium 9.6 mg/dL (8.4-10.2) 05/01/18 07:03 Magnesium 2.00 mg/dL (1.7-2.3) 04/29/18 21:21 Total Bilirubin 0.60 mg/dL (0.1-1.2) 04/29/18 21:21 AST 23 units/L (5-40) 04/29/18 21:21 ALT 12 units/L (7-56) 04/29/18 21:21 Alkaline Phosphatase 72 units/L (35-129) 04/29/18 21:21 Total Creatine Kinase 85 units/L (30-135) 04/29/18 21:21 Total Protein 8.2 g/dL (6.3-8.2) 04/29/18 21:21 Albumin 4.1 g/dL (3.9-5) 04/29/18 21:21 Albumin/Globulin Ratio 1.0 % 04/29/18 21:21 Digoxin 0.8 ng/mL (0.9-2.0) L 04/29/18 21:21 Blood Type O POSITIVE 04/29/18 22:27 Antibody Screen Negative 04/29/18 22:27
[2018-05-01] MEDS: LOPRESSOR PO SCH ×2 (13:38→21:34)
[2018-05-02] MEDS: FLAGYL 500 MG/100 ML 500 MG/100 ML BAG IV SCH ×3 (00:55→17:31)
[2018-05-02 05:53] LABS: Hematocrit 32.4 % (30.3-42.9); Mean Corpuscular HGB Conc 34 % (30-34); Mean Corpuscular Hemoglobin 33 pg (28-32); Mean Corpuscular Volume 97 fl (79-97); Platelet Count 246 K/mm3 (140-440); Red Blood Count 3.34 M/mm3 (3.65-5.03); Red Cell Distribution Width 15.4 % (13.2-15.2)
[2018-05-02 06:18] LABS: Calcium 8.9 mg/dL (8.4-10.2)
[2018-05-02] MEDS ORDERED: NACL 0.9% 500 ML 500 ML ONE (08:38)
[2018-05-02] MEDS: LOPRESSOR PO SCH ×2 (09:30→21:18)
[2018-05-02] MEDS: SODIUM CHLORIDE FLUSH SYRINGE 10 ML IV SCH ×2 (09:31→21:18)
--- NOTE | 2018-05-02 12:37 | Progress Note ---
Assessment and Plan Assessment and plan: Lower GI bleed with bright red blood per rectum. Patient was on Coumadin. H/H stable so far Conservative management-no plan for colonoscopy as per GI, they signed off. Per GI, family would like to return patient back to home hospice and not proceed with any further testing for the bleeding. systemic anticoagulation has been discontinued in setting of recent rectal bleeding, dementia and per pt's families wishes. Atrial fibrillation with rapid ventricular response. Cardizem drip discontinued and patient started on by mouth Lopressor. Hyperkalemia. now resolved after Insulin, Chromic systolic CHF Toxic metabolic encephalopathy Proctitis seen on CT Abd. GI following Cont Antibiotics- Levaquin, Flagyl Fever on admission. Blood cultures ordered. Acute on CKD. Disposition. Blood cultures are negative patient will be discharged back to home with hospice. History Interval history: No new issues overnight. Hospitalist Physical - Constitutional Vitals: Temp Pulse Resp BP Pulse Ox 98.8 F 81 18 134/78 100 05/02/18 04:59 05/02/18 04:59 05/02/18 07:54 05/02/18 09:30 05/02/18 04:59 General appearance: Present: no acute distress - EENT Eyes: Present: PERRL, EOM intact ENT: hearing intact, clear oral mucosa, dentition normal - Neck Neck: Present: supple, normal ROM - Respiratory Respiratory effort: normal Respiratory: bilateral: CTA - Cardiovascular Rhythm: regular Heart Sounds: Present: S1 & S2. Absent: gallop, rub - Extremities Extremities: no ischemia, No edema, Full ROM - Abdominal General gastrointestinal: soft, non-tender, non-distended, normal bowel sounds - Integumentary Integumentary: Present: clear, warm, dry - Neurologic Neurologic: CNII-XII intact, moves all extremities Results - Labs CBC & Chem 7: 05/02/18 05:24 05/02/18 05:24 Labs: Laboratory Last Values WBC 6.7 K/mm3 (4.5-11.0) 05/02/18 05:24 RBC 3.34 M/mm3 (3.65-5.03) L 05/02/18 05:24 Hgb 11.0 gm/dl (10.1-14.3) 05/02/18 05:24 Hct 32.4 % (30.3-42.9) 05/02/18 05:24 MCV 97 fl (79-97) 05/02/18 05:24 MCH 33 pg (28-32) H 05/02/18 05:24 MCHC 34 % (30-34) 05/02/18 05:24 RDW 15.4 % (13.2-15.2) H 05/02/18 05:24 Plt Count 246 K/mm3 (140-440) 05/02/18 05:24 Lymph % (Auto) 10.3 % (13.4-35.0) L 05/01/18 07:03 Kay % (Auto) 9.8 % (0.0-7.3) H 05/01/18 07:03 Eos % (Auto) 0.3 % (0.0-4.3) 05/01/18 07:03 Baso % (Auto) 0.2 % (0.0-1.8) 05/01/18 07:03 Lymph # 1.3 K/mm3 (1.2-5.4) 05/01/18 07:03 Kay # 1.2 K/mm3 (0.0-0.8) H 05/01/18 07:03 Eos # 0.0 K/mm3 (0.0-0.4) 05/01/18 07:03 Baso # 0.0 K/mm3 (0.0-0.1) 05/01/18 07:03 Seg Neutrophils % 79.4 % (40.0-70.0) H 05/01/18 07:03 Seg Neutrophils # 9.9 K/mm3 (1.8-7.7) H 05/01/18 07:03 PT 19.4 Sec. (12.2-14.9) H 05/01/18 07:03 INR 1.54 (0.87-1.13) H 05/01/18 07:03 APTT Sec. (24.2-36.6) 04/29/18 21:21 Sodium 138 mmol/L (137-145) 05/02/18 05:24 Potassium 3.6 mmol/L (3.6-5.0) 05/02/18 05:24 Chloride 104.8 mmol/L (98-107) 05/02/18 05:24 Carbon Dioxide 20 mmol/L (22-30) L 05/02/18 05:24 Anion Gap 17 mmol/L 05/02/18 05:24 BUN 17 mg/dL (7-17) 05/02/18 05:24 Creatinine 1.7 mg/dL (0.7-1.2) H 05/02/18 05:24 Estimated GFR 35 ml/min 05/02/18 05:24 BUN/Creatinine Ratio 10 % 05/02/18 05:24 Glucose 83 mg/dL (65-100) 05/02/18 05:24 POC Glucose 98 (70-105) 05/02/18 09:13 Lactic Acid 4.70 mmol/L (0.7-2.0) H* 04/30/18 Unknown Calcium 8.9 mg/dL (8.4-10.2) 05/02/18 05:24 Magnesium 2.00 mg/dL (1.7-2.3) 04/29/18 21:21 Total Bilirubin 0.60 mg/dL (0.1-1.2) 04/29/18 21:21 AST 23 units/L (5-40) 04/29/18 21:21 ALT 12 units/L (7-56) 04/29/18 21:21 Alkaline Phosphatase 72 units/L (35-129) 04/29/18 21:21 Total Creatine Kinase 85 units/L (30-135) 04/29/18 21:21 Total Protein 8.2 g/dL (6.3-8.2) 04/29/18 21:21 Albumin 4.1 g/dL (3.9-5) 04/29/18 21:21 Albumin/Globulin Ratio 1.0 % 04/29/18 21:21 Digoxin 0.8 ng/mL (0.9-2.0) L 04/29/18 21:21 Blood Type O POSITIVE 04/29/18 22:27 Antibody Screen Negative 04/29/18 22:27
--- NOTE | 2018-05-02 12:41 | Progress Note ---
Assessment and Plan Per GI, family would like to return patient back to home hospice and not proceed with any further testing for the bleeding. Additionally, systemic anticoagulation has been discontinued in setting of recent rectal bleeding, dementia and per pt's families wishes. Currently stable cardiac status. Cont present cardiac regimen. Pt may discharge home from cardiology standpoint. Recommend follow up in our office with Dr. Hansen within 1-2 weeks of hospital discharge ([phone]). The patient has been seen in conjunction with Dr. Espinosa who agrees with the assessment and plan of care. - Patient Problems (1) Rectal bleeding Current Visit: Yes Status: Resolved (2) Permanent atrial fibrillation with rapid ventricular response Current Visit: Yes Status: Acute (3) Altered mental status Current Visit: Yes Status: Acute (4) NSVT (nonsustained ventricular tachycardia) Current Visit: Yes Status: Chronic (5) CKD (chronic kidney disease) Current Visit: Yes Status: Chronic Qualifiers: Chronic kidney disease stage: stage 4 (severe) Qualified Code(s): N18.4 - Chronic kidney disease, stage 4 (severe) (6) Dementia Current Visit: Yes Status: Chronic Qualifiers: Dementia behavioral disturbance: with behavioral disturbance Subjective Date of service: 05/02/18 Principal diagnosis: AFib with RVR Interval history: pt resting comfortably in bed, more alert today, no current complaints, daughter and son at bedside. tele reviewed - pt in AFib with CVR overnight. Objective Last Vital Signs Temp 98.8 F 05/02/18 04:59 Pulse 81 05/02/18 04:59 Resp 18 05/02/18 07:54 BP 134/78 05/02/18 09:30 Pulse Ox 100 05/02/18 04:59 - Physical Examination General: No Apparent Distress HEENT: Positive: EOMI, Normocephaly, Mucus Membranes Moist Neck: Positive: neck supple, trachea midline Cardiac: Positive: irregularly irregular, S1/S2 Lungs: Positive: clear to auscultation Neuro: Positive: Other (withdrawn, nonverbal ) Abdomen: Positive: Soft, Active Bowel Sounds. Negative: Tender Skin: Positive: Clear. Negative: Rash Musculoskeletal: other (difficult to assess) Extremities: Absent: edema - Labs and Meds CBC 05/02/18 Range/Units 05:24 WBC 6.7 (4.5-11.0) K/mm3 RBC 3.34 L (3.65-5.03) M/mm3 Hgb 11.0 (10.1-14.3) gm/dl Hct 32.4 (30.3-42.9) % Plt Count 246 (140-440) K/mm3 Comprehensive Metabolic Panel 05/02/18 Range/Units 05:24 Sodium 138 (137-145) mmol/L Potassium 3.6 (3.6-5.0) mmol/L Chloride 104.8 (98-107) mmol/L Carbon Dioxide 20 L (22-30) mmol/L BUN 17 (7-17) mg/dL Creatinine 1.7 H (0.7-1.2) mg/dL Glucose 83 (65-100) mg/dL Calcium 8.9 (8.4-10.2) mg/dL - Imaging and Cardiology EKG: image reviewed - Telemetry EKG Rhythm: Atrial Fibrillation
[2018-05-03] MEDS: FLAGYL 500 MG/100 ML 500 MG/100 ML BAG IV SCH ×2 (01:07→09:55)
[2018-05-03 08:05] VITALS: BP 116/58
[2018-05-03] MEDS: LOPRESSOR PO SCH (09:51)
[2018-05-03] MEDS: LEVAQUIN 250MG/50ML 250 MG/50 ML BAG IV SCH (09:51)
[2018-05-03] MEDS: SODIUM CHLORIDE FLUSH SYRINGE 10 ML IV SCH (10:02)
--- NOTE | 2018-05-03 10:24 | Discharge Summary ---
Providers - Providers Date of Admission: 04/29/18 23:44 Date of discharge: 05/03/18 Attending physician: PEGGY FOX 04/29/18 22:20 Consult to Physician [CONS] Urgent Comment: Dr. Rockwell spoke with Dr. Dumas @ [phone] Consulting Provider: KELLEY DUMAS Physician Instructions: Reason For Exam: gi bleed 04/30/18 09:26 Consult to Physician [CONS] Routine Comment: Consulting Provider: SIDNEY CISSE Physician Instructions: Reason For Exam: afib with rvr Primary care physician: BACK JOINER Hospitalization Reason for admission: fall and rectal bleeding Condition: Poor Hospital course: The patient has a history of permanent atrial fibrillation for which she is on chronic anticoagulation with Coumadin. She was recently hospitalized at [facility] and reported to have sustained a fall 24 hours of discharge from the hospital. She was later discharged to hospice. She was brought to the ER by a family this time because she was confused and combative over the past 2 days prior to admission. In addition, the day prior to admission, her daughter noted rectal bleeding. Patient was seen by GI consultation who felt that the bleeding was likely secondary to suppository and constipation. The patient had no further bleeding episodes. Colonoscopy was discussed with the family by GI. Family decided that they wanted the patient to return patient back to hospice and not proceed with any further testing for the bleeding. Cardiology also saw the patient in consultation. They recommended that anticoagulation be discontinued in setting of recent rectal bleeding, dementia and per pt's families wishes. Patient is felt to see maximal hospital benefit and will be discharged back to hospice. Dedicated discharge time 35 minutes. Disposition: DC-50 TO HOSPICE (HOME) Time spent for discharge: 35 - Discharge Diagnoses (1) Altered mental status Status: Acute (2) Confusion Status: Acute (3) Permanent atrial fibrillation Status: Acute (4) Rectal bleeding Status: Acute (5) CKD (chronic kidney disease) Status: Chronic Qualifiers: Chronic kidney disease stage: stage 4 (severe) Qualified Code(s): N18.4 - Chronic kidney disease, stage 4 (severe) (6) Dementia Status: Chronic Qualifiers: Dementia behavioral disturbance: with behavioral disturbance Core Measure Documentation - Palliative Care Palliative Care/ Comfort Measures: Hospice Care - Core Measures Any of the following diagnoses?: none Exam - Constitutional Vitals: Temp Pulse Resp BP Pulse Ox 98.3 F 88 16 116/58 100 05/03/18 08:03 05/03/18 09:51 05/03/18 08:03 05/03/18 08:03 05/03/18 08:03 General appearance: Present: no acute distress, well-nourished - EENT Eyes: Present: PERRL ENT: hearing intact, clear oral mucosa - Neck Neck: Present: supple, normal ROM - Respiratory Respiratory effort: normal Respiratory: bilateral: CTA - Cardiovascular Heart Sounds: Present: S1 & S2. Absent: rub, click - Extremities Extremities: pulses symmetrical, No edema Peripheral Pulses: within normal limits - Abdominal General gastrointestinal: Present: soft, non-tender, non-distended, normal bowel sounds Female genitourinary: Present: normal - Integumentary Integumentary: Present: clear, warm, dry - Musculoskeletal Musculoskeletal: gait normal, strength equal bilaterally - Psychiatric Psychiatric: appropriate mood/affect, intact judgment & insight - Neurologic Neurologic: CNII-XII intact, moves all extremities Plan Activity: advance as tolerated Weight Bearing Status: Weight Bear as Tolerated Diet: regular Follow up with: PRIMARY CARE, [Primary Care Provider] - 3-5 Days SIDNEY CISSE MD [Staff Physician] - 7 Days SHANICE RAPP MD [Staff Physician] - 7 Days
--- NOTE | 2018-05-03 15:03 | Query-Infection ---
Dear ___Meliton Date:__05/03/2018 Weasand Trimmer/CDS:___Evelina Phone#:__[phone] Exercise your independent professional judgment when responding to this query. Questions asked do not imply a particular answer is desired or expected. We greatly appreciate your clarification on this issue. Clinical Documentation States: 83-year-old woman with a history of CHF, chronic kidney disease, A. fib was brought to the emergency room for evaluation for rectal bleed. The Hospitalist (Dr. Coelho) progress note on 05/02/2018 stated "Toxic metabolic encephalopathy Proctitis seen on CT Abd. GI following Cont Antibiotics- Levaquin, Flagyl Fever on admission. Blood cultures ordered." Clinical findings show: (please check applicable parameters) WBC 04/29 10.5 04/30 12.2 05/01 12.5 Temp (04/29): 100.8 RR (04/29): 28 CA (04/29): 150 Lactic Acid (04/25): 7.5 Infection, known /suspected, with some of the following indicators; Specify the infection: 3 General parameters [X ] Fever (core temp >38.30C or 100.40F) [ ] Hypothermia (core temp <36C) [X ] Heart rate >90 bpm [X ] Tachypnea: >20 bpm or pCO2 < 32 mmHg [X ] Altered mental status [ ] Significant edema / +ve fluid balance (>20 ml/kg 24 h) [ ] Hyperglycemia (Bl. glucose >110 mg/dl) w/o diabetes Inflammatory parameters [X ] Leukocytosis (white blood cell count >12,000/l) [ ] Leukopenia (white blood cell count <4,000/l) [ ] Bandemia (immature WBC > 10%) [ ] Leucocyte Left Shift [ ] Plasma procalcitonin>2 SD above the normal value Hemodynamic and tissue perfusion parameters [ ] Arterial hypotension(SBP <90 mmHg, MAP <70 mmHg,or a SBP drop >40 mmHg in adults) [X ] Hyperlactatemia (>3 mmol/l) [ ] Anion Gap (> 11mEG/l) [ ] Decreased capillary refill or mottling Organ dysfunction parameters [ ] Arterial hypoxemia (PaO2/FIO2 <300) [ ] Creatinine increase =0.5 mg/dl [ ] Acute oliguria (urine output <0.5 ml | kg |h or 45 mM/l for at least 2 hrs) [ ] Coagulation abnormalities (INR >1.5 or activated partial thromboplastin time >60 s) [ ] Ileus (absent brandin wel sounds) [ ] Thrombocytopenia (platelet count <100,000/l) [ ] Hyperbilirubinemia (plasma total bilirubin >4 mg/dl) According to the clinical indications above, can Bacteremia be further specified? If so, please indicate below and in your Progress Notes and/ or Discharge Summary. Indicate if the condition was present on admission. PHYSICIAN RESPONSE: [ x] Sepsis [ ] Severe Sepsis [ ] Septic Shock [ ] Septicemia [ ] Sepsis now resolved [ ] SIRS due to non-infectious cause with organ dysfunction [ ] SIRS due to non-infectious cause without organ dysfunction [ ] Other: [ ] Comment/Explanation: Present on Admission: [x ] Yes (Y) [ ] Clinically undeterminable (W) [ ] No (N) [ ] Ruled Out Please also document response in your Progress Notes and/or Discharge Summary and indicate if the condition was present on admission Notes: SIRS/ SIRS WITH ORGAN DYSFUNCTION Systemic inflammatory response syndrome (SIRS) generally refers to the systemic response to trauma/melgoza or other insult such as Acute Myocardial Infarction, Acute Pancreatitis, and Major Surgery with symptoms including fever, tachycardia , tachypnea, and leukocytosis (1). BACTEREMIA Presence of viable bacteria in the circulating blood (2). This term is reserved for patients that do not manifest above SIRS response. SEPTICEMIA Generally refers to a systemic disease associated with the presence of pathological microorganisms or toxins in the blood, which can include bacteria, viruses, fungi or other organisms (1). SEPSIS Generally refers to SIRS due infection (1). SEVERE SEPSIS Generally refers to sepsis associated with acute organ dysfunction (1). SEPTIC SHOCK Generally refers to circulatory failure associated with severe sepsis (2), and defined as hypotension or hypoperfusion despite adequate fluid resuscitation (1 hour) (3). REFERENCES: 1. [employer]/Society of Critical Care Medicine Consensus Conference. Definitions for sepsis and organ failure and guidelines for the use of innovative therapies in sepsis. Critical Care Med 1992;20:864 - 74. 2. Andre y MM, Bryce MP, Juan ROBINS, Angel E, Shaji D, Duke D, Misha J, Ginger SM , Zain JL, Michelle G; International Sepsis Definitions Conference. 2000 SCCM/ESICM/ACCP/ATS/SIS International Sepsis Definitions Conference. Intensive Care Med. 2002 Apr;29(4):530-8. Epub 2002Oct 26. Review. PubMed PMID:[id number] 3. ICD-9-CM Official Guidelines for Coding and Reporting 4. Medscape Drugs, Diseases and Procedures references 5. [employer] Textbook of Internal Medicine. 18th Edition MTDD
== END 2018-05-03 12:20 | disposition hospice, home (50) | DRG 871 ==
LOC: ED 20:34 → 4A 23:44
PROVIDERS: ADMIT Internal Medicine; ATTEND Hospitalist
DX: A41.9 Sepsis, unspecified organism (principal); G92 Toxic encephalopathy; K92.2 Gastrointestinal hemorrhage, unspecified; N17.9 Acute kidney failure, unspecified; N18.4 Chronic kidney disease, stage 4 (severe); F03.91 Unspecified dementia, unspecified severity, with behavioral disturbance; I47.1 Supraventricular tachycardia; I50.42 Chronic combined systolic (congestive) and diastolic (congestive) heart failure; I13.0 Hypertensive heart and chronic kidney disease with heart failure and stage 1 through stage 4 chronic kidney disease, or unspecified chronic kidney disease; E87.5 Hyperkalemia; K62.89 Other specified diseases of anus and rectum; I48.91 Unspecified atrial fibrillation; Z79.01 Long term (current) use of anticoagulants; Z79.82 Long term (current) use of aspirin; Z79.899 Other long term (current) drug therapy; Z82.49 Family history of ischemic heart disease and other diseases of the circulatory system; Z66 Do not resuscitate
CPT/HCPCS: 36415; 70450; 71045; 74176; 80048; 80053; 80162; 82140; 82271; 82550; 82962; 83735; 85014; 85018; 85025; 85027; 85610; 85730; 86850; 86900; 86901; 87040; 87076; 87186; 93005; 93010; 96365; 96366; 96367; 96372; 96375; J0692; J1630; J1956; J2060; J2597; J3370; J3430; J7030; J7040

== ENCOUNTER 2018-08-13 23:58 | Inpatient (IN) | payer MEDICARE ==
[2018-08-14] MEDS ORDERED: NACL 0.9% 1000 ML 1,000 ML IV ONE ×3 (00:35→08:42)
[2018-08-14 01:07] LABS: Basophils # (Auto) 0.2 K/mm3 (0.0-0.1); Basophils % (Auto) 2.4 % (0.0-1.8); Eosinophils % (Auto) 0.3 % (0.0-4.3); Hematocrit 41.8 % (30.3-42.9); Hemoglobin 13.4 gm/dl (10.1-14.3); Lymphocytes # (Auto) 1.2 K/mm3 (1.2-5.4); Lymphocytes % (Auto) 12.8 % (13.4-35.0); Mean Corpuscular HGB Conc 32 % (30-34); Mean Corpuscular Volume 109 fl (79-97); Monocytes # (Auto) 1.1 K/mm3 (0.0-0.8); Monocytes % (Auto) 11.1 % (0.0-7.3); Platelet Count 368 K/mm3 (140-440); Red Blood Count 3.84 M/mm3 (3.65-5.03); Red Cell Distribution Width 14.6 % (13.2-15.2)
[2018-08-14] MEDS ORDERED: CARDIZEM IV ONE ×2 (01:07→01:44)
[2018-08-14] MEDS ORDERED: CARDIZEM ONE (01:11)
[2018-08-14 01:36] LABS: Albumin 3.7 g/dL (3.9-5); Calcium 9.6 mg/dL (8.4-10.2)
--- NOTE | 2018-08-14 01:44 | Emergency Department Report ---
HPI - General Chief Complaint: Abdominal Pain Time Seen by Provider: 08/14/18 01:07 - HPI HPI: 83-year-old -[place] female presents to the emergency department via EMS from home with complaint of abdominal pain for the past 5 days. Just prior to t his, the patient had some issues with having some diarrhea and/or bowel movements with incontinence. However since that time she has not had any bowel movements. Patient also presents with atrial fibrillation with extremely elevated heart rate. She does have a history of A. fib. She also has history of CHF, chronic kidney disease and dementia. The patient is currently in hospice for "her bad heart." The patient is a poor historian and her son is currently at bedside providing most of the information. ED Past Medical Hx - Past Medical History Previous Medical History?: Yes Hx Hypertension: Yes Hx Congestive Heart Failure: Yes Hx Renal Disease: Yes Additional medical history: Afib - Surgical History Past Surgical History?: Yes - Social History Smoking Status: Unknown if ever smoked Substance Use Type: None - Medications Home Medications: Home Medications Medication Instructions Recorded Confirmed Last Taken Type Aspirin [Aspirin EC] 81 mg PO DAILY 04/21/18 05/01/18 Unknown History Cyanocobalamin (Vitamin B-12) 1,000 mcg PO DAILY 04/21/18 05/01/18 Unknown H istory [Vitamin B-12] Digoxin [Lanoxin] 0.125 mg PO DAILY 04/21/18 05/01/18 Unknown History Ondansetron [Zofran ODT TAB] 4 mg PO Q8HR 04/21/18 05/01/18 Unknown History Sodium Bicarbonate 325 mg PO DAILY 04/21/18 05/01/18 Unknown History ED Review of Systems ROS: Stated complaint: ABDOMINAL PAIN/AFIB W/RVR Other details as noted in HPI Comment: Unobtainable due to pts medical conditions Physical Exam - Physical Exam Vital Signs: Vital Signs 08/14/18 00:29 Temperature 98.9 F Pulse Rate 160 H Respiratory 18 Rate Blood Pressure 134/68 O2 Sat by Pulse 98 Oximetry Physical Exam: GENERAL: The patient is well-developed well-nourished. HEENT: Normocephalic. Atraumatic. Patient has moist mucous membranes. EYES: Extraocular motions are intact. Pupils are equal and reactive to light bilaterally. NECK: Supple. Trachea is midline. CHEST/LUNGS: Clear to auscultation. There is no respiratory distress noted. HEART/CARDIOVASCULAR: Irregularly irregular with moderate to severe tachycardia. ABDOMEN: Abdomen is soft. There is some generalized tenderness to palpation of the abdomen. Patient has normal bowel sounds. There is no abdominal distention. SKIN: Skin is warm and dry. NEURO: Patient is awake but mostly nonverbal. Withdraws from painful stimuli. MUSCULOSKELETAL: There is no tenderness or deformity. There is no evidence of acute injury. ED Course Vital Signs 08/14/18 00:29 Temperature 98.9 F Pulse Rate 160 H Respiratory 18 Rate Blood Pressure 134/68 O2 Sat by Pulse 98 Oximetry - Consultations Consultation #1: I spoke with Dr. Hansen, [facility] cardiology, regarding the patient's atrial fibrillation with RVR and our difficulties in the emergency department with using the Cardizem causing the patient's hypotension. He recommends that instead we discontinue the Cardizem but started the patient on amiodarone. He is aware of the cardiology consult. 08/14/18 06:41 ED Medical Decision Making - Lab Data Result diagrams: 08/14/18 00:46 08/14/18 00:46 - EKG Data -: EKG Interpreted by Me - EKG Data When compared to previous EKG there are: no significant change Interpretation: unchanged when compared t (04/29/18), other (atrial fibrillation with a rate of 151 bpm. Normal axis, there are some T-wave inversions to the lateral leads. Q waves to the anterior leads) - Radiology Data Radiology results: report reviewed, image reviewed interpreted by me: EXAM: XR ABD SERIES W CXR 1V HISTORY: abd pain COMPARISON: April 29, 2018 chest x-ray. FINDINGS:: Single frontal view of the chest demonstrates stable mild cardiac enlargement. Prominent calcification the mitral valve. Cardiac silhouette obscures the left lung base.. Lungs are grossly clear otherwise. No pneumothorax. Supine and upright AP views of the abdomen were obtained. No gross free air. Mild gas-filled prominence of the colon within physiologic limits. Mild wall thickening the colon concerning for colitis. No gross pathological calcifications. IMPRESSION:: Lungs are grossly clear. Mild gas-filled prominence of the colon within physiologic limits with mild wall thickening for concerning for colitis. No bowel obstruction. There may be mild ileus. Transcribed By: LMA Dictated By: LADONNA MANCERA MD Electronically Authenticated By: LADONNA MANCERA MD Signed Date/Time: 08/14/18 0155 EXAM: CT ABDOMEN PELVIS WO CON HISTORY: Abd pain TECHNIQUE: CT images obtained through the Abdomen and Pelvis without contrast. Transaxial,, coronal and sagittal reformats are provided. PRIORS: Radiographs of the same date, CT 04/29/2018 FINDINGS: Imaged intrathoracic contents are remarkable for a right lower lung airspace disease with the so seated small pleural effusion. Cardiomegaly and coronary artery calcifications are also noted. Kidneys are normal in size, axis and position. No hydronephrosis or n ephrolithiasis. The ureters are normal in course and caliber. No stones are seen within the urinary bladder. Prior hysterectomy. No free fluid in the pelvis. The liver, gallbladder, pancreas, spleen, and adrenal glands demonstrate a normal noncontrast appearance. Hollow enteric organs are normal in course and caliber. Appendix is normal. Scattered colonic diverticula without surrounding inflammatory findings. No intra-abdominal free air/fluid or lymphadenopathy. Aorta is normal in course and caliber with densely scattered aortoiliac atherosclerosis. Superficial soft tissues are unremarkable. No acute or aggressive appearing skeletal findings. IMPRESSION: Right lower lung airspace disease with associated small pleural effusion. PA and lateral chest radiographic follow-up is suggested. Coronary and peripheral arterial disease. No acute findings in the abdomen or pelvis. Transcribed By: MB Dictated By: BOGDAN ASHBY MD Electronically Authenticated By: BOGDAN ASHBY MD Signed Date/Time: 08/14/18 0624 - Medical Decision Making Patient presents to the emergency department with a complaint of abdominal pain. She is a history of atrial fibrillation and presents in RVR. She was given some Cardizem boluses followed by a drip. Patient's labs showed some mild hypokalemia, lactic acidosis, renal insufficiency but she had a first negative troponin. Abdominal x-ray shows some nonspecific nonobstructive bowel gas but there could be signs of an ileus. A CT scan of the abdomen and pelvis was done without any contrast do not appear to show any intra-abdominal or pelvic pathology but does show some lower lobe pneumonia. Blood culture sent and the patient was started on antibiotics. When the Cardizem drip is increased to try and help with rate control, patient starts having some hypotension. I spoke with cardiology and the Cardizem IV discontinued and the patient was started on amiodarone. Patient will be admitted to the ICU and has been accepted for admission by the hospitalist, Dr. Soto. - Differential Diagnosis small bowel obstruction, ileus, dysrhythmia, constipation Critical Care Time: Yes Critical care time in (mins) excluding proc time.: 35 Critical care attestation.: If time is entered above; I have spent that time in minutes in the direct care of this critically ill patient, excluding procedure time. Critical care time was spent on this patient during her initial evaluation, multiple re-samra luations, ordering interpretation of labs and imaging, discussion with the hospitalist, discussion with the cardiology service. Critical Care Time: 35 minutes ED Disposition Clinical Impression: Atrial fibrillation with RVR, Hyperkalemia, Lactic acidosis, Abdominal pain CKD (chronic kidney disease) Qualifiers: Chronic kidney disease stage: unspecified stage Qualified Code(s): N18.9 - Chronic kidney disease, unspecified Disposition: OP ADMIT IP TO THIS HOSP Is pt being admited?: Yes Condition: Serious Instructions: Abdominal Pain (ED) Referrals: PRIMARY CARE, [Primary Care Provider] - 3-5 Days Time of Disposition: 06:37
--- NOTE | 2018-08-14 01:55 | XRay Report ---
FINAL REPORT EXAM: XR ABD SERIES W CXR 1V HISTORY: abd pain COMPARISON: April 29, 2018 chest x-ray. FINDINGS:: Single frontal view of the chest demonstrates stable mild cardiac enlargement. Prominent calcification the mitral valve. Cardiac silhouette obscures the left lung base.. Lungs are grossly cl ear otherwise. No pneumothorax. Supine and upright AP views of the abdomen were obtained. No gross fr ee air. Mild gas-filled prominence of the colon within physiologic limits. Mild wall thickening the c olon concerning for colitis. No gross pathological calcifications. IMPRESSION:: Lungs are grossly clear. Mild gas-filled prominence of the colon within physiologic limits with mild wall thickening for kayode rning for colitis. No bowel obstruction. There may be mild ileus.
[2018-08-14] MEDS ORDERED: CARDIZEM/D5W 100MG/100ML 100 MG/100 ML BAG IV SCH ×2 (02:00→12:00)
[2018-08-14 02:34] LABS: INR 1.35 (0.87-1.13)
[2018-08-14 02:35] LABS: Partial Thromboplastin Time 33.1 Sec. (24.2-36.6)
--- NOTE | 2018-08-14 06:24 | Cat Scan Report ---
FINAL REPORT EXAM: CT ABDOMEN PELVIS WO CON HISTORY: Abd pain TECHNIQUE: CT images obtained through the Abdomen and Pelvis without contrast. Transaxial,, coronal and sagittal reformats are provided. PRIORS: Radiographs of the same date, CT 04/29/2018 FINDINGS: Imaged intrathoracic contents are remarkable for a right lower lung airspace disease with the so seat ed small pleural effusion. Cardiomegaly and coronary artery calcifications are also noted. Kidneys are normal in size, axis and position. No hydronephrosis or nephrolithiasis. The ureters are normal in course and caliber. No stones are seen within the urinary bladder. Prior hysterectomy. No f ree fluid in the pelvis. The liver, gallbladder, pancreas, spleen, and adrenal glands demonstrate a normal noncontrast appeara nce. Hollow enteric organs are normal in course and caliber. Appendix is normal. Scattered colonic divert icula without surrounding inflammatory findings. No intra-abdominal free air/fluid or lymphadenopathy . Aorta is normal in course and caliber with densely scattered aortoiliac atherosclerosis. Superficial soft tissues are unremarkable. No acute or aggressive appearing skeletal findings. IMPRESSION: Right lower lung airspace disease with associated small pleural effusion. PA and lateral chest radiog raphic follow-up is suggested. Coronary and peripheral arterial disease. No acute findings in the abdomen or pelvis.
[2018-08-14] MEDS ORDERED: LEVAQUIN 750MG/150ML 750 MG/150 ML BAG IV ONE (06:31)
[2018-08-14] MEDS ORDERED: CORDARONE 150 MG in D5W 97 ML IV ONE (06:41)
[2018-08-14] MEDS ORDERED: CORDARONE 900 MG in D5W 482 ML IV SCH (07:00)
[2018-08-14 07:10] LABS: Bilirubin,Urine NEG (Negative); Blood,Urine NEG (Negative); Color,Urine Yellow (Yellow); Protein,Urine <15 mg/dL mg/dL (Negative); RBC,Urine < 1.0 /HPF (0.0-6.0); Urobilinogen,Urine < 2.0 mg/dL (<2.0); WBC,Urine < 1.0 /HPF (0.0-6.0)
[2018-08-14] MEDS ORDERED: CORDARONE IV ONE (07:10)
--- NOTE | 2018-08-14 08:06 | History and Physical Report ---
History of Present Illness Date of examination: 08/14/18 Date of admission: 08/14/18 Chief complaint: Intractable abdominal pain History of present illness: Patient is an 83-year-old female with past medical history of systolic congestive heart failure, atrial fibrillation, underlying baseline dementia although functional, chronic kidney disease, recent history of GI bleed currently a hospice patient who presents to the ER following week was no progression of abdominal pain. The family patient in the last Week has been having persistent diarrhea which subsequently seized with no bowel movement in the last 3 days. The patient's son who is at the bedside the patient has also had increase in heart rate and despite morphine that was given to the patient is nourished the hospice team the patient's abdominal pain did not improve. The son also informs the patient is on hospice due to her heart. The patient cannot provide much information due to doubled over in pain although decided that the pain was rated at 10 over 10 at its worse. We'll be asked to admit the patient for further management. Again the son reaffirms that the do not want any heroic or invasive measures. The son states no history of nausea or vomiting PAST MEDICAL HISTORY: CHF, chronic kidney disease, A. fib and dementia PAST SURGICAL HISTORY: None SOCIAL HISTORY: No alcohol, no drugs, tobacco, currently a hospice patient FAMILY HISTORY: Hypertension Past History Past Medical History: atrial fib, heart failure, hypertension, other (rectal bleed) Past Surgical History: No surgical history Social history: lives with family, other (hospice patient). denies: smoking, alcohol abuse, IV drug use Family history: hypertension Medications and Allergies Allergies Allergy/AdvReac Type Severity Reaction Status Date / Time No Known Allergies Allergy Unverified 03/14/17 10:25 Home Medications Medication Instructions Recorded Confirmed Last Taken Type Aspirin [Aspirin EC] 81 mg PO DAILY 04/21/18 05/01/18 Unknown History Cyanocobalamin (Vitamin B-12) 1,000 mcg PO DAILY 04/21/18 05/01/18 Unknown History [Vitamin B-12] Digoxin [Lanoxin] 0.125 mg PO DAILY 04/21/18 05/01/18 Unknown History Ondansetron [Zofran ODT TAB] 4 mg PO Q8HR 04/21/18 05/01/18 Unknown History Sodium Bicarbonate 325 mg PO DAILY 04/21/18 05/01/18 Unknown History Active Meds: Active Medications Sodium Chloride (Nacl 0.9% 1000 Ml) 1,000 mls @ 125 mls/hr IV ONCE ONE Stop: 08/14/18 09:10 Last Admin: 08/14/18 06:49 Dose: 125 mls/hr Documented by: Amiodarone HCl 900 mg/ (Dextrose) 500 mls @ 33.33 mls/hr IV DIRECT BYRON; Protocol Review of Systems All systems: negative Constitutional: fatigue, weakness, malaise, lethargy, no weight loss, no weight gain, no fever, no chills Cardiovascular: palpitations, rapid/irregular heart beat, no chest pain, no orthopnea Gastrointestinal: abdominal pain, diarrhea, constipation, change in bowel habit s, no nausea, no vomiting Exam - Physical Exam Narrative exam: VITAL SIGNS: Reviewed. GENERAL: The patient appeared in acute distress secondary to abdominal pain. Vital signs as documented. HEAD: No signs of head trauma. EYES: Pupils are equal. Extraocular motions intact. EARS: Hearing grossly intact. MOUTH: Oropharynx is normal. NECK: No adenopathy, no JVD. CHEST: Chest with clear breath sounds bilaterally. No wheezes, rales, or rhonchi. CARDIAC: Irregularly irregular rate and rhythm .S1 and S2, without murmurs, gallops, or rubs. VASCULAR: No Edema. Peripheral pulses normal and equal in all extremities. ABDOMEN: Soft, relies tenderness. No sign of distention. No rebound or guarding, and no masses palpated. Bowel Sounds normal. MUSCULOSKELETAL: Good range of motion of all major joints. Extremities without clubbing, cyanosis or edema. NEUROLOGIC EXAM: Awake and oriented x 1 to self. unable to perform all extremity full exam not performed and is in severe pain and is not answering her questions PSYCHIATRIC: Mood normal. SKIN: Age-appropriate wrinkles on blemishes - Constitutional Vitals: Temp Pulse Resp BP Pulse Ox 98.9 F 155 H 24 94/61 97 08/14/18 00:29 08/14/18 06:36 08/14/18 06:36 08/14/18 06:36 08/14/18 06:36 Results - Labs CBC & Chem 7: 08/14/18 00:46 08/14/18 00:46 Labs: Laboratory Last Values WBC 9.6 K/mm3 (4.5-11.0) 08/14/18 00:46 RBC 3.84 M/mm3 (3.65-5.03) 08/14/18 00:46 Hgb 13.4 gm/dl (10.1-14.3) 08/14/18 00:46 Hct 41.8 % (30.3-42.9) 08/14/18 00:46 MCV 109 fl (79-97) H 08/14/18 00:46 MCH 35 pg (28-32) H 08/14/18 00:46 MCHC 32 % (30-34) 08/14/18 00:46 RDW 14.6 % (13.2-15.2) 08/14/18 00:46 Plt Count 368 K/mm3 (140-440) 08/14/18 00:46 Lymph % (Auto) 12.8 % (13.4-35.0) L 08/14/18 00:46 [place] % (Auto) 11.1 % (0.0-7.3) H 08/14/18 00:46 Eos % (Auto) 0.3 % (0.0-4.3) 08/14/18 00:46 Baso % (Auto) 2.4 % (0.0-1.8) H 08/14/18 00:46 Lymph # 1.2 K/mm3 (1.2-5.4) 08/14/18 00:46 [place] # 1.1 K/mm3 (0.0-0.8) H 08/14/18 00:46 Eos # 0.0 K/mm3 (0.0-0.4) 08/14/18 00:46 Baso # 0.2 K/mm3 (0.0-0.1) H 08/14/18 00:46 Seg Neutrophils % 73.4 % (40.0-70.0) H 08/14/18 00:46 Seg Neutrophils # 7.0 K/mm3 (1.8-7.7) 08/14/18 00:46 PT 17.1 Sec. (12.2-14.9) H 08/14/18 01:50 INR 1.35 (0.87-1.13) H 08/14/18 01:50 APTT 33.1 Sec. (24.2-36.6) 08/14/18 01:50 Sodium 139 mmol/L (137-145) 08/14/18 00:46 Potassium 5.5 mmol/L (3.6-5.0) H 08/14/18 00:46 Chloride 104.0 mmol/L (98-107) 08/14/18 00:46 Carbon Dioxide 14 mmol/L (22-30) L 08/14/18 00:46 Anion Gap 27 mmol/L 08/14/18 00:46 BUN 35 mg/dL (7-17) H 08/14/18 00:46 Creatinine 2.6 mg/dL (0.7-1.2) H 08/14/18 00:46 Estimated GFR 21 ml/min 08/14/18 00:46 BUN/Creatinine Ratio 13 % 08/14/18 00:46 Glucose 142 mg/dL (65-100) H 08/14/18 00:46 Lactic Acid 4.80 mmol/L (0.7-2.0) H* 08/14/18 07:14 Calcium 9.6 mg/dL (8.4-10.2) 08/14/18 00:46 Total Bilirubin 0.40 mg/dL (0.1-1.2) 08/14/18 00:46 AST 12 units/L (5-40) 08/14/18 00:46 ALT 6 units/L (7-56) L 08/14/18 00:46 Alkaline Phosphatase 88 units/L (35-129) 08/14/18 00:46 Troponin T < 0.010 ng/mL (0.00-0.029) 08/14/18 01:50 Total Protein 7.6 g/dL (6.3-8.2) 08/14/18 00:46 Albumin 3.7 g/dL (3.9-5) L 08/14/18 00:46 Albumin/Globulin Ratio 0.9 % 08/14/18 00:46 Lipase 39 units/L (13-60) 08/14/18 00:46 Urine Color Yellow (Yellow) 08/14/18 06:47 Urine Turbidity Clear (Clear) 08/14/18 06:47 Urine pH 5.0 (5.0-7.0) 08/14/18 06:47 Ur Specific [place] 1.013 (1.003-1.030) 08/14/18 06:47 Urine Protein <15 mg/dl mg/dL (Negative) 08/14/18 06:47 Urine Glucose (UA) Neg mg/dL (Negative) 08/14/18 06:47 Urine Ketones Neg mg/dL (Negative) 08/14/18 06:47 Urine Blood Neg (Negative) 08/14/18 06:47 Urine Nitrite Neg (Negative) 08/14/18 06:47 Urine Bilirubin Neg (Negative) 08/14/18 06:47 Urine Urobilinogen < 2.0 mg/dL (<2.0) 08/14/18 06:47 Ur Leukocyte Esterase Neg (Negative) 08/14/18 06:47 Urine WBC (Auto) < 1.0 /HPF (0.0-6.0) 08/14/18 06:47 Urine RBC (Auto) < 1.0 /HPF (0.0-6.0) 08/14/18 06:47 Assessment and Plan Assessment and plan: Patient is an 83-year-old female with past medical history of systolic congestive heart failure, atrial fibrillation, underlying baseline dementia although functional, chronic kidney disease, recent history of GI bleed currently a hospice patient who presents to the ER following week was no progression of abdominal pain. The family patient in the last Week has been having persistent diarrhea which subsequently seized with no bowel movement in the last 3 days. The patient's son who is at the bedside the patient has also had increase in heart rate and despite morphine that was given to the patient is nourished the hospice team the patient's abdominal pain did not improve. The son also informs the patient is on hospice due to her heart. The patient cannot provide much information due to doubled over in pain although decided that the pain was rated at 10 over 10 at its worse. We'll be asked to admit the patient for further management. Again the son reaffirms that the do not want any heroic or invasive measures. The son states no history of nausea or vomiting CXR. IMPRESSION: Right lower lung airspace disease with associated small pleural effusion. PA and lateral chest radiographic follow-up is suggested. Coronary and peripheral arterial disease. No acute findings in the abdomen or pelvis. CT ABDOMEN. IMPRESSION:: Lungs are grossly clear. Mild gas-filled prominence of the colon within physiologic limits with mild wall thickening for concerning for colitis. No bowel obstruction. There may be mild ileus. Afib with RVR Peritoneal irritation Recent Diarrhea followed by Constipation Vasogenic shock-Hypotension Colitis with possible Illeus Hyperkalemia CKD STAGE IV bl s.cr 2.7 Secondary Hypercoagulable state Lactic Acidemia DNR Hospice in the past Prior hx of Rectal bleed -not worked up per family ?Gallbladder mass per prior Nephrology documentation-Not worked UP ECHO DONE 04/21/18- EF 50-55% Plan Admit to IMCU Pain control OK WITH Cardizem and Amiodarone drip Start Digoxin, cardiology consult Patient rescinded Hospice and does not want go to inpatient hospice at this time per the son, I think this is a confusion because the son keeps saying she states she has a home and will not be put in a home Family and patient still wants to maintain DNR. Give Kayxalate. No indication for abx at this time Give 2 More NS bolus and Maintained fluid at 100 CC 1/2NS with D5 Monitor Electrolytes Keep NPO except MEDS DVT/GI The high probability of a clinically significant, sudden or life threatening deterioration of the [CARDIOVASCULAR,] system(s) required my full and direct attention, intervention and personal management. The aggregate critical care time was [75] minutes. This time is in addition to time spent performing reported procedures but includes the following: [X] Data Review and interpretation [X] Patient assessment and monitoring of vital signs [X] Documentation [X] Medication orders and management Advance Directives: Yes Plan of care discussed with patient/family: Yes
[2018-08-14] MEDS ORDERED: NARCAN 0.4 MG/1 ML IV PRN (08:39)
[2018-08-14] MEDS ORDERED: DULCOLAX PR PRN (08:39)
[2018-08-14] MEDS ORDERED: SODIUM CHLORIDE FLUSH SYRINGE 10 ML IV PRN (08:39)
[2018-08-14] MEDS ORDERED: DILAUDID IV PRN (08:39)
[2018-08-14] MEDS ORDERED: D5/0.45NS 1,000 ML IV SCH (09:00)
[2018-08-14] MEDS ORDERED: HALFPRIN EC PO SCH (10:00)
[2018-08-14] MEDS ORDERED: SODIUM CHLORIDE FLUSH SYRINGE 10 ML IV SCH (10:00)
[2018-08-14] MEDS ORDERED: LANOXIN PO SCH (10:00)
[2018-08-14] MEDS ORDERED: SODIUM BICARBONATE PO SCH (10:00)
[2018-08-14] MEDS ORDERED: VITAMIN B-12 PO SCH (10:00)
[2018-08-14] MEDS ORDERED: MORPHINE IV PRN (10:15)
[2018-08-14] MEDS ORDERED: HumuLIN R IV ONE (12:11)
[2018-08-14] MEDS ORDERED: D50W (25GM) Syringe IV ONE (12:11)
[2018-08-14] MEDS ORDERED: MORPHINE ONE (12:14)
[2018-08-14] MEDS ORDERED: ZOFRAN ONE (12:14)
[2018-08-14] MEDS ORDERED: D5NS 1,000 ML IV SCH (13:00)
--- NOTE | 2018-08-14 13:04 | Consultation ---
History of Present Illness Consult date: 08/14/18 Reason for consult: other (Hypotensive, abdominal pain, possible sepsis.) History of present illness: PULMONARY AND CRITICAL CARE CONSULTATION DR. OKEEFE THANK YOU FOR ASKING US TO PARTICIPATE IN THE CARE OF THIS PATIENT. Patient is an 83-year-old female with past medical history of systolic congestive heart failure, atrial fibrillation, underlying baseline dementia although functional, chronic kidney disease, recent history of GI bleed currently a hospice patient who presents to the ER following week was no progression of abdominal pain. The family patient in the last Week has been having persistent diarrhea which subsequently seized with no bowel movement in the last 3 days. The patient's son who is at the bedside the patient has also had increase in heart rate and despite morphine that was given to the patient is nourished the hospice team the patient's abdominal pain did not improve. The son also informs the patient is on hospice due to her heart. The patient cannot provide much information due to doubled over in pain although decided that the pain was rated at 10 over 10 at its worse. Again the son reaffirms that the do not want any heroic or invasive measures. The son states no history of nausea or vomiting. Patient has no history of smoking, alcohol or drug abuse.No known drug allergies. Patient hypotensive. Possible sepsis. Past History Past Medical History: atrial fib, heart failure, hypertension, other (rectal bleed) Past Surgical History: No surgical history Social history: lives with family, other (hospice patient). denies: smoking, alcohol abuse, IV drug use Family history: hypertension Medications and Allergies Allergies Allergy/AdvReac Type Severity Reaction Status Date / Time No Known Allergies Allergy Unverified 03/14/17 10:25 Home Medications Medication Instructions Recorded Confirmed Last Taken Type Aspirin [Aspirin EC] 81 mg PO DAILY 04/21/18 05/01/18 Unknown History Cyanocobalamin (Vitamin B-12) 1,000 mcg PO DAILY 04/21/18 05/01/18 Unknown History [Vitamin B-12] Digoxin [Lanoxin] 0.125 mg PO DAILY 04/21/18 05/01/18 Unknown History Ondansetron [Zofran ODT TAB] 4 mg PO Q8HR 04/21/18 05/01/18 Unknown History Sodium Bicarbonate 325 mg PO DAILY 04/21/18 05/01/18 Unknown History Active Meds: Active Medications Aspirin (Halfprin Ec) 81 mg PO DAILY [facility] Bisacodyl (Dulcolax) 10 mg [place] QDAY PRN PRN Reason: constipation unrelieved by MOM Cyanocobalamin (Vitamin B-12) 1,000 mcg PO DAILY [facility] Dextrose (D50w (25gm) Syringe) 50 ml IV ONCE ONE Stop: 08/14/18 12:12 Digoxin (Lanoxin) 0.125 mg PO DAILY [facility] Heparin Sodium (Porcine) (Heparin) 5,000 unit SUB-Q Q8HR [facility] Hydromorphone HCl (Dilaudid) 0.25 mg IV Q3H PRN PRN Reason: Pain, Moderate (4-6) Amiodarone HCl 900 mg/ (Dextrose) 500 mls @ 33.33 mls/hr IV DIRECT [facility]; Protocol Last Admin: 08/14/18 11:15 Dose: 1 mg/min, 33.33 mls/hr Documented by: Dextrose/Sodium Chloride (D5/0.45ns) 1,000 mls @ 125 mls/hr IV DIRECT [facility] Dextrose/Sodium Chloride (D5ns) 1,000 mls @ 75 mls/hr IV DIRECT [facility] Insulin Human Regular (Humulin R) 10 units IV ONCE ONE Stop: 08/14/18 12:12 Morphine Sulfate (Morphine) 2 mg IV Q3H PRN PRN Reason: Pain, Mild (1-3) Naloxone HCl (Narcan 0.4 Mg/1 Ml) 0.1 mg IV Q2MIN PRN PRN Reason: Res Rate </= 8 or 02 SAT < 92% Ondansetron HCl (Zofran Odt) 4 mg PO Q8HR [facility] Sodium Bicarbonate (Sodium Bicarbonate) 325 mg PO DAILY [facility] Sodium Chloride (Sodium Chloride Flush Syringe 10 Ml) 10 ml IV BID [facility] Sodium Chloride (Sodium Chloride Flush Syringe 10 Ml) 10 ml IV PRN PRN PRN Reason: LINE FLUSH Review of Systems All systems: negative Physical Examination Vital signs: Vital Signs Temp Pulse Resp BP Pulse Ox 98.9 F 160 H 18 134/68 98 08/14/18 00:29 08/14/18 00:29 08/14/18 00:29 08/14/18 00:29 08/14/18 00:29 General appearance: lethargic, appears uncomfortable Eyes: non-icteric ENT: oropharynx moist Neck: supple, no JVD Ascultation: Bilateral: diminished breath sounds Cardiovascular: other (Tachycardia.) Gastrointestinal: hypoactive bowel sounds, tender Integumentary: normal Extremities: no cyanosis, no edema Musculoskeletal: other (Patient in hospice. Appears bedridden.) Gait: other (Patient is in the bed.) pupils equal and round, unable to assess other (Dementia.) Results - Laboratory Findings CBC and BMP: 08/14/18 00:46 08/14/18 14:44 ABG POC ABG pH 7.298 (7.35-7.45) L 08/14/18 12:38 POC ABG pCO2 28.2 (35-45) L 08/14/18 12:38 POC ABG pO2 174 (80-105) H 08/14/18 12:38 POC ABG HCO3 13.8 08/14/18 12:38 POC ABG Total CO2 15 08/14/18 12:38 POC ABG O2 Sat 99 08/14/18 12:38 PT/INR, D-dimer PT 17.1 Sec. (12.2-14.9) H 08/14/18 01:50 INR 1.35 (0.87-1.13) H 08/14/18 01:50 Abnormal lab findings: Abnormal Labs 08/14/18 08/14/18 08/14/18 00:46 00:46 01:50 MCV 109 H MCH 35 H Lymph % (Auto) 12.8 L [place] % (Auto) 11.1 H Baso % (Auto) 2.4 H [place] # 1.1 H Baso # 0.2 H Seg Neutrophils % 73.4 H PT 17.1 H INR 1.35 H POC ABG pH POC ABG pCO2 POC ABG pO2 Potassium 5.5 H Carbon Dioxide 14 L BUN 35 H Creatinine 2.6 H Glucose 142 H Lactic Acid ALT 6 L Albumin 3.7 L 08/14/18 08/14/18 08/14/18 01:50 04:25 06:07 MCV MCH Lymph % (Auto) [place] % (Auto) Baso % (Auto) [place] # Baso # Seg Neutrophils % PT INR POC ABG pH POC ABG pCO2 POC ABG pO2 Potassium Carbon Dioxide BUN Creatinine Glucose Lactic Acid 4.30 H* 5.60 H* 5.00 H* ALT Albumin 08/14/18 08/14/18 07:14 12:38 MCV MCH Lymph % (Auto) [place] % (Auto) Baso % (Auto) [place] # Baso # Seg Neutrophils % PT INR POC ABG pH 7.298 L POC ABG pCO2 28.2 L POC ABG pO2 174 H Potassium Carbon Dioxide BUN Creatinine Glucose Lactic Acid 4.80 H* ALT Albumin - Diagnostic Findings Chest x-ray: report reviewed (MILD CARDIAC ENLARGEMENT.), image reviewed Assessment and Plan Patient is an 83-year-old female with past medical history of systolic congestive heart failure, atrial fibrillation, underlying baseline dementia although functional, chronic kidney disease, recent history of GI bleed currently a hospice patient who presents to the ER following week was no progression of abdominal pain. The family patient in the last Week has been having persistent diarrhea which subsequently seized with no bowel movement in the last 3 days. The patient's son who is at the bedside the patient has also had increase in heart rate and despite morphine that was given to the patient is nourished the hospice team the patient's abdominal pain did not improve. The son also informs the patient is on hospice due to her heart. The patient cannot provide much information due to doubled over in pain although decided that the pain was rated at 10 over 10 at its worse. Again the son reaffirms that the do not want any heroic or invasive measures. The son states no history of nausea or vomiting. Patient has no history of smoking, alcohol or drug abuse.No known drug allergies. Patient hypotensive. Possible sepsis. - Patient Problems (1) Lactic acidosis Current Visit: Yes Status: Acute Plan to address problem: Patient is in Metabolic acidosis. PH 7.29, PCO2 28, PO2 174,HCO3 13.8, O2 saturation 99% on 4 litres O2. (2) Abdominal pain Current Visit: Yes Status: Acute Plan to address problem: GI consulted. (3) Atrial fibrillation with RVR Current Visit: Yes Status: Chronic Plan to address problem: Cardiology consulted. (4) ARF (acute renal failure) with tubular necrosis Current Visit: No Status: Acute Plan to address problem: Management as per nephrology. (5) Altered mental status Current Visit: No Status: Acute Plan to address problem: Patient has dementia. (6) Sepsis associated hypotension Current Visit: Yes Status: Acute Plan to address problem: Patient with abdominal pain,Hypotension and lactic acidosis , Possible sepsis. Patient is on I/V fluids D5 NSS. Recommend Blood cultures. Recommend urine cultures. Recommend to start on unasyn.
[2018-08-14] MEDS ORDERED: ZOFRAN ODT PO SCH (14:00)
[2018-08-14] MEDS ORDERED: HEPARIN SUB-Q SCH (14:00)
--- NOTE | 2018-08-14 14:23 | Gastroenterology Consultation ---
History of Present Illness - Reason for Consult Consult date: 08/14/18 Requesting physician: JESSICA OKEEFE - History of Present Illness This is a 83 yo AAF with pmh of CHF, Afib, dementia, CKD, and recent admission for rectal bleeding on hospice presenting to the ED for abdominal pain and found to be in afib with RVR. GI consulted for possible ileus seen on abdominal xray. Difficult to obtain history from patient this morning due to patient's agitation but reports having lower abdominal pain. Per report, she has had diarrhea for several day but for the past few days, she has not had any bowel movement. No nausea/vomiting or blood in the stool. Past History Past Medical History: atrial fib, heart failure, hypertension, other (rectal bleed) Past Surgical History: No surgical history Social history: lives with family, other (hospice patient). denies: smoking, alcohol abuse, IV drug use Family history: hypertension Medications and Allergies Allergies Allergy/AdvReac Type Severity Reaction Status Date / Time No Known Allergies Allergy Unverified 03/14/17 10:25 Home Medications Medication Instructions Recorded Confirmed Last Taken Type Aspirin [Aspirin EC] 81 mg PO DAILY 04/21/18 05/01/18 Unknown History Cyanocobalamin (Vitamin B-12) 1,000 mcg PO DAILY 04/21/18 05/01/18 Unknown History [Vitamin B-12] Digoxin [Lanoxin] 0.125 mg PO DAILY 04/21/18 05/01/18 Unknown History Ondansetron [Zofran ODT TAB] 4 mg PO Q8HR 04/21/18 05/01/18 Unknown History Sodium Bicarbonate 325 mg PO DAILY 04/21/18 05/01/18 Unknown History Active Meds: Active Medications Aspirin (Halfprin Ec) 81 mg PO DAILY [facility] Bisacodyl (Dulcolax) 10 mg [place] QDAY PRN PRN Reason: constipation unrelieved by MOM Cyanocobalamin (Vitamin B-12) 1,000 mcg PO DAILY [facility] Digoxin (Lanoxin) 0.125 mg PO DAILY [facility] Heparin Sodium (Porcine) (Heparin) 5,000 unit SUB-Q Q8HR [facility] Hydromorphone HCl (Dilaudid) 0.25 mg IV Q3H PRN PRN Reason: Pain, Moderate (4-6) Amiodarone HCl 900 mg/ (Dextrose) 500 mls @ 33.33 mls/hr IV DIRECT [facility]; Protocol Last Admin: 08/14/18 11:15 Dose: 1 mg/min, 33.33 mls/hr Documented by: Dextrose/Sodium Chloride (D5/0.45ns) 1,000 mls @ 125 mls/hr IV DIRECT [facility] Dextrose/Sodium Chloride (D5ns) 1,000 mls @ 75 mls/hr IV DIRECT [facility] Morphine Sulfate (Morphine) 2 mg IV Q3H PRN PRN Reason: Pain, Mild (1-3) Naloxone HCl (Narcan 0.4 Mg/1 Ml) 0.1 mg IV Q2MIN PRN PRN Reason: Res Rate </= 8 or 02 SAT < 92% Ondansetron HCl (Zofran Odt) 4 mg PO Q8HR [facility] Sodium Bicarbonate (Sodium Bicarbonate) 325 mg PO DAILY [facility] Sodium Chloride (Sodium Chloride Flush Syringe 10 Ml) 10 ml IV BID [facility] Sodium Chloride (Sodium Chloride Flush Syringe 10 Ml) 10 ml IV PRN PRN PRN Reason: LINE FLUSH Review of Systems - Review of Systems ROS unobtainable: due to mental status Exam - Constitutional Vital Signs: Temp Pulse Resp BP Pulse Ox 98.9 F 155 H 24 94/61 97 08/14/18 00:29 08/14/18 06:36 08/14/18 06:36 08/14/18 06:36 08/14/18 06:36 General appearance: mild distress - EENT Eyes: EOM intact ENT: hearing intact - Respiratory Respiratory effort: normal - Cardiovascular Rhythm: other (tachycardic) Extremities: No edema - Gastrointestinal General gastrointestinal: Present: soft, non-tender, tender - Integumentary Integumentary: Present: clear - Labs CBC & Chem 7: 08/14/18 00:46 08/14/18 00:46 Lab Results: Laboratory Results - last 24 hr 08/14/18 08/14/18 08/14/18 00:46 00:46 01:50 WBC 9.6 RBC 3.84 Hgb 13.4 Hct 41.8 MCV 109 H MCH 35 H MCHC 32 RDW 14.6 Plt Count 368 Lymph % (Auto) 12.8 L [place] % (Auto) 11.1 H Eos % (Auto) 0.3 Baso % (Auto) 2.4 H Lymph # 1.2 [place] # 1.1 H Eos # 0.0 Baso # 0.2 H Seg Neutrophils % 73.4 H Seg Neutrophils # 7.0 PT 17.1 H INR 1.35 H APTT 33.1 POC ABG pH POC ABG pCO2 POC ABG pO2 POC ABG HCO3 POC ABG Total CO2 POC ABG O2 Sat POC ABG Base Excess FiO2 Sodium 139 Potassium 5.5 H Chloride 104.0 Carbon Dioxide 14 L Anion Gap 27 BUN 35 H Creatinine 2.6 H Estimated GFR 21 BUN/Creatinine Ratio 13 Glucose 142 H Lactic Acid Calcium 9.6 Total Bilirubin 0.40 AST 12 ALT 6 L Alkaline Phosphatase 88 Troponin T Total Protein 7.6 Albumin 3.7 L Albumin/Globulin Ratio 0.9 Lipase 39 Urine Color Urine Turbidity Urine pH Ur Specific [place] Urine Protein Urine Glucose (UA) Urine Ketones Urine Blood Urine Nitrite Urine Bilirubin Urine Urobilinogen Ur Leukocyte Esterase Urine WBC (Auto) Urine RBC (Auto) 08/14/18 08/14/18 08/14/18 01:50 01:50 04:25 WBC RBC Hgb Hct MCV MCH MCHC RDW Plt Count Lymph % (Auto) [place] % (Auto) Eos % (Auto) Baso % (Auto) Lymph # [place] # Eos # Baso # Seg Neutrophils % Seg Neutrophils # PT INR APTT POC ABG pH POC ABG pCO2 POC ABG pO2 POC ABG HCO3 POC ABG Total CO2 POC ABG O2 Sat POC ABG Base Excess FiO2 Sodium Potassium Chloride Carbon Dioxide Anion Gap BUN Creatinine Estimated GFR BUN/Creatinine Ratio Glucose Lactic Acid 4.30 H* 5.60 H* Calcium Total Bilirubin AST ALT Alkaline Phosphatase Troponin T < 0.010 Total Protein Albumin Albumin/Globulin Ratio Lipase Urine Color Urine Turbidity Urine pH Ur Specific [place] Urine Protein Urine Glucose (UA) Urine Ketones Urine Blood Urine Nitrite Urine Bilirubin Urine Urobilinogen Ur Leukocyte Esterase Urine WBC (Auto) Urine RBC (Auto) 08/14/18 08/14/18 08/14/18 06:07 06:47 07:14 WBC RBC Hgb Hct MCV MCH MCHC RDW Plt Count Lymph % (Auto) [place] % (Auto) Eos % (Auto) Baso % (Auto) Lymph # [place] # Eos # Baso # Seg Neutrophils % Seg Neutrophils # PT INR APTT POC ABG pH POC ABG pCO2 POC ABG pO2 POC ABG HCO3 POC ABG Total CO2 POC ABG O2 Sat POC ABG Base Excess FiO2 Sodium Potassium Chloride Carbon Dioxide Anion Gap BUN Creatinine Estimated GFR BUN/Creatinine Ratio Glucose Lactic Acid 5.00 H* 4.80 H* Calcium Total Bilirubin AST ALT Alkaline Phosphatase Troponin T Total Protein Albumin Albumin/Globulin Ratio Lipase Urine Color Yellow Urine Turbidity Clear Urine pH 5.0 Ur Specific [place] 1.013 Urine Protein <15 mg/dl Urine Glucose (UA) Neg Urine Ketones Neg Urine Blood Neg Urine Nitrite Neg Urine Bilirubin Neg Urine Urobilinogen < 2.0 Ur Leukocyte Esterase Neg Urine WBC (Auto) < 1.0 Urine RBC (Auto) < 1.0 08/14/18 12:38 WBC RBC Hgb Hct MCV MCH MCHC RDW Plt Count Lymph % (Auto) [place] % (Auto) Eos % (Auto) Baso % (Auto) Lymph # [place] # Eos # Baso # Seg Neutrophils % Seg Neutrophils # PT INR APTT POC ABG pH 7.298 L POC ABG pCO2 28.2 L POC ABG pO2 174 H POC ABG HCO3 13.8 POC ABG Total CO2 15 POC ABG O2 Sat 99 POC ABG Base Excess -13 FiO2 36 Sodium Potassium Chloride Carbon Dioxide Anion Gap BUN Creatinine Estimated GFR BUN/Creatinine Ratio Glucose Lactic Acid Calcium Total Bilirubin AST ALT Alkaline Phosphatase Troponin T Total Protein Albumin Albumin/Globulin Ratio Lipase Urine Color Urine Turbidity Urine pH Ur Specific [place] Urine Protein Urine Glucose (UA) Urine Ketones Urine Blood Urine Nitrite Urine Bilirubin Urine Urobilinogen Ur Leukocyte Esterase Urine WBC (Auto) Urine RBC (Auto) - Imaging CT Scan: report reviewed Assessment and Plan This is a 83 yo AAF with pmh of CHF, Afib, dementia, CKD, and recent admission for rectal bleeding on hospice presenting to the ED for abdominal pain and found to be in afib with RVR. GI consulted for possible ileus seen on abdominal xray. - Patient Problems (1) Abdominal pain Current Visit: Yes Status: Acute Plan to address problem: Worsening over the past several day along with change in bowel habits with initially diarrhea and no stools for past 3 days now. - Unclear etiology. possible viral infection and possible ileus although CT abdomen did not show any signs of colitis or bowel obstruction or dilation. - normal liver enzymes and lipase. Rec: - keep NPO - recommend NG tube if patient develops nausea/vomiting. - management for afib and lactic acidosis for primary team.
--- NOTE | 2018-08-14 14:38 | Consultation ---
History of Present Illness Consult date: 08/14/18 Requesting physician: PAMELA BERNABE Consult reason: atrial fibrillation History of present illness: The pt is an 83 YO female with a past medical history of permanent atrial fibrillation, NSVT, CKD, dementia. She has been seen by our practice on prior hospitalizations. She is a poor historian due to dementia and does not recall why she is hospitalized. She does c/o some SOB on evaluation. Per the chart, pt brought to ED for evaluation of abdominal pain and diarrhea. Pt noted to have possible ileus seen on abdominal xray. Also, pt was noted to have elevated HR per hospice team. Following arrival, she was noted to be in AFib with RVR with hypotension and was initiated on amiodarone gtt. Of note, pt was admitted in 05/2018 for evaluation of AMS and rectal bleeding. Her family ultimately decided to return patient back to home hospice and not proceed with any further GI evaluation. Additionally, systemic anticoagulation was been discontinued at that time in setting of rectal bleeding, dementia and per pt's families wishes. Echo done 04/23/2018 showed EF 50-55%, mod TR, RVSP 47mmHg, mild MR. Past History Past Medical History: atrial fib, other (rectal bleed, dementia, CKD) Social history: lives with family, other (hospice patient). denies: smoking, alcohol abuse, IV drug use Family history: hypertension Medications and Allergies Allergies Allergy/AdvReac Type Severity Reaction Status Date / Time No Known Allergies Allergy Unverified 03/14/17 10:25 Home Medications Medication Instructions Recorded Confirmed Last Taken Type Aspirin [Aspirin EC] 81 mg PO DAILY 04/21/18 05/01/18 Unknown History Cyanocobalamin (Vitamin B-12) 1,000 mcg PO DAILY 04/21/18 05/01/18 Unknown History [Vitamin B-12] Digoxin [Lanoxin] 0.125 mg PO DAILY 04/21/18 05/01/18 Unknown History Ondansetron [Zofran ODT TAB] 4 mg PO Q8HR 04/21/18 05/01/18 Unknown History Sodium Bicarbonate 325 mg PO DAILY 04/21/18 05/01/18 Unknown History Active Meds: Active Medications Aspirin (Halfprin Ec) 81 mg PO DAILY [facility] Last Admin: 08/14/18 13:40 Dose: 81 mg Documented by: Bisacodyl (Dulcolax) 10 mg [place] QDAY PRN PRN Reason: constipation unrelieved by MOM Cyanocobalamin (Vitamin B-12) 1,000 mcg PO DAILY [facility] Last Admin: 08/14/18 13:40 Dose: 1,000 mcg Documented by: Digoxin (Lanoxin) 0.125 mg PO DAILY [facility] Last Admin: 08/14/18 13:40 Dose: 0.125 mg Documented by: Heparin Sodium (Porcine) (Heparin) 5,000 unit SUB-Q Q8HR [facility] Hydromorphone HCl (Dilaudid) 0.25 mg IV Q3H PRN PRN Reason: Pain, Moderate (4-6) Amiodarone HCl 900 mg/ (Dextrose) 500 mls @ 33.33 mls/hr IV DIRECT [facility]; Protocol Last Admin: 08/14/18 11:15 Dose: 1 mg/min, 33.33 mls/hr Documented by: Dextrose/Sodium Chloride (D5/0.45ns) 1,000 mls @ 125 mls/hr IV DIRECT [facility] Dextrose/Sodium Chloride (D5ns) 1,000 mls @ 75 mls/hr IV DIRECT [facility] Morphine Sulfate (Morphine) 2 mg IV Q3H PRN PRN Reason: Pain, Mild (1-3) Last Admin: 08/14/18 13:40 Dose: 2 mg Documented by: Naloxone HCl (Narcan 0.4 Mg/1 Ml) 0.1 mg IV Q2MIN PRN PRN Reason: Res Rate </= 8 or 02 SAT < 92% Ondansetron HCl (Zofran Odt) 4 mg PO Q8HR [facility] Sodium Bicarbonate (Sodium Bicarbonate) 325 mg PO DAILY [facility] Last Admin: 08/14/18 13:40 Dose: 325 mg Documented by: Sodium Chloride (Sodium Chloride Flush Syringe 10 Ml) 10 ml IV BID [facility] Last Admin: 08/14/18 10:30 Dose: 10 ml Documented by: Sodium Chloride (Sodium Chloride Flush Syringe 10 Ml) 10 ml IV PRN PRN PRN Reason: LINE FLUSH Review of Systems ROS unobtainable: due to mental status Cardiovascular: shortness of breath, no chest pain Physical Examination Vital Signs Temp Pulse Resp BP Pulse Ox 98.9 F 160 H 18 134/68 98 08/14/18 00:29 08/14/18 00:29 08/14/18 00:29 08/14/18 00:29 08/14/18 00:29 General appearance: no acute distress, other (lethargic) HEENT: Positive: PERRL Neck: Positive: neck supple, trachea midline Cardiac: Positive: irregularly irregular, S1/S2, Systolic Murmur, Tachycardia Lungs: Positive: Decreased Breath Sounds Neuro: Positive: Other (lethargic) Skin: Negative: Rash, Wound Musculoskeletal: No Pain Extremities: Absent: edema Results 08/14/18 00:46 08/14/18 00:46 Cardiac Enzymes 08/14/18 Range/Units 00:46 AST 12 (5-40) units/L Coagulation 08/14/18 Range/Units 01:50 PT 17.1 H (12.2-14.9) Sec. INR 1.35 H (0.87-1.13) APTT 33.1 (24.2-36.6) Sec. CBC 08/14/18 Range/Units 00:46 WBC 9.6 (4.5-11.0) K/mm3 RBC 3.84 (3.65-5.03) M/mm3 Hgb 13.4 (10.1-14.3) gm/dl Hct 41.8 (30.3-42.9) % Plt Count 368 (140-440) K/mm3 Lymph # 1.2 (1.2-5.4) K/mm3 [place] # 1.1 H (0.0-0.8) K/mm3 Eos # 0.0 (0.0-0.4) K/mm3 Baso # 0.2 H (0.0-0.1) K/mm3 Comprehensive Metabolic Panel 08/14/18 Range/Units 00:46 Sodium 139 (137-145) mmol/L Potassium 5.5 H (3.6-5.0) mmol/L Chloride 104.0 (98-107) mmol/L Carbon Dioxide 14 L (22-30) mmol/L BUN 35 H (7-17) mg/dL Creatinine 2.6 H (0.7-1.2) mg/dL Glucose 142 H (65-100) mg/dL Calcium 9.6 (8.4-10.2) mg/dL AST 12 (5-40) units/L ALT 6 L (7-56) units/L Alkaline Phosphatase 88 (35-129) units/L Total Protein 7.6 (6.3-8.2) g/dL Albumin 3.7 L (3.9-5) g/dL - Imaging and Cardiology Echo: report reviewed (04/23/2018 showed EF 50-55%, mod TR, RVSP 47mmHg, mild MR) EKG: report reviewed, image reviewed EKG interpretations - Telemetry EKG Rhythm: Atrial Fibrillation - EKG Supraventricular dysrhythmia: atrial fibrillation Assessment and Plan Abdominal pain / diarrhea Possible ileus seen on abdominal xray. GI eval in progress. Chronic atrial fibrillation with RVR Agree with IV amiodarone. Consider resuming home lopressor if BPs permit. No systemic AC in setting of recent rectal bleeding, dementia and per pt's families wishes. DEBBI on CKD / dehydration IVF per primary Hyperkalemia Lactic acidosis Dementia H/o NSVT The patient has been seen in conjunction with Dr. Espinosa who agrees with the assessment and plan of care.
[2018-08-14 15:38] LABS: Calcium 8.6 mg/dL (8.4-10.2)
[2018-08-14] MEDS ORDERED: D5/0.45NS 1,000 ML IV ONE (16:11)
[2018-08-14 23:40] VITALS: BP 117/66
--- NOTE | 2018-08-15 07:11 | Event Note ---
Date: 08/14/18 JAMEY BLAS WAS CALLED ON PATIENT AND THE SON MR. HURST AND PATIENT'S SISTER OVER THE PHONE STATED THAT PATIENT IS DNR AND GAVE VERBAL ORDER FOR DNR . PATIENT ONLY RECEIVED OXYGEN BY MASK.
--- NOTE | 2018-08-15 07:16 | Event Note ---
Date: 08/14/18 PATIENT WAS NOTED TO HAVE STOPPED BREATHING AFTER [facility] WAS CALLED OFF FOLLOWING FAMILY INTERVENTION STATING THAT PATIENT IS DNR. ON EXAMINATION: THERE WAS NO SPONTANEOUS MOVEMENT OR BREATHING NOTED. PUPILS WERE FIXED AND DILATED AUSCULTATION OF THE CHEST REVEALED NO AIR MOVEMENT AND AUSCULTATION OF THE HEART REVEALED NO IMPULSES AND PATIENT WAS PRONOUCED AT 10:15PM.
--- NOTE | 2018-08-22 12:58 | Death Summary ---
Summary - Providers Date of service: 08/15/18 Consults: 08/14/18 06:15 Consult to Cardiology [CONS] Routine Consulting Provider: SHERRY DELVALLE Reason For Exam: A-fib with RVR Consult to Physician [CONS] Routine Comment: Consulting Provider: FARRAH JONES Physician Instructions: Reason For Exam: ICU care 08/14/18 08:41 Consult to Physician [CONS] Routine Comment: Dr. Wright saw patient @ 10:00am- [facility] Consulting Provider: KWAME WRIGHT Physician Instructions: Reason For Exam: ILEUS Attending: JESSICA OKEEFE MD - summary Date of admission: 08/14/18 08:39 Date of : 08/14/18 Reason for admission: AFIB WITH RVR Significant findings: Patient is an 83-year-old female with past medical history of systolic celena estive heart failure, atrial fibrillation, underlying baseline dementia although functional, chronic kidney disease, recent history of GI bleed currently a hospice patient who presents to the ER following week was no progression of abdominal pain. The family patient in the last Week has been having persistent diarrhea which subsequently seized with no bowel movement in the last 3 days. The patient's son who is at the bedside the patient has also had increase in heart rate and despite morphine that was given to the patient is nourished the hospice team the patient's abdominal pain did not improve. The son also informs the patient is on hospice due to her heart. The patient cannot provide much information due to doubled over in pain although decided that the pain was rated at 10 over 10 at its worse. We'll be asked to admit the patient for further management. Again the son reaffirms that the do not want any heroic or invasive measures. The son states no history of nausea or vomiting CXR. IMPRESSION: Right lower lung airspace disease with associated small pleural effusion. PA and lateral chest radiographic follow-up is suggested. Coronary and peripheral arterial disease. No acute findings in the abdomen or pelvis. CT ABDOMEN. IMPRESSION:: Lungs are grossly clear. Mild gas-filled prominence of the colon within physiologic limits with mild wall thickening for concerning for colitis. No bowel obstruction. There may be mild ileus. Patient was admitted with consult to cardiology, and GI she unfortunately in the early hours on the morning. she was noted to have no spontaneous respiration and a code was called per documentation and this was called off due to the wishes of family for patient to be DNR Afib with RVR Peritoneal irritation Recent Diarrhea followed by Constipation Vasogenic shock-Hypotension Colitis with possible Illeus Hyperkalemia CKD STAGE IV bl s.cr 2.7 Secondary Hypercoagulable state Lactic Acidemia DNR Hospice in the past Prior hx of Rectal bleed -not worked up per family ?Gallbladder mass per prior Nephrology documentation-Not worked UP ECHO DONE 04/21/18- EF 50-55%
== END 2018-08-14 22:23 | DRG 871 ==
LOC: ED 23:58 → IMCU 08-14 08:39
PROVIDERS: ADMIT Internal Medicine; ATTEND Internal Medicine
PROC: 4A033R1 Measurement of Arterial Saturation, Peripheral, Percutaneous Approach (ICD-10-PCS; principal; 2018-08-14)
DX: A41.9 Sepsis, unspecified organism (principal); N17.0 Acute kidney failure with tubular necrosis; E87.2 Acidosis; I50.22 Chronic systolic (congestive) heart failure; I48.0 Paroxysmal atrial fibrillation; E87.5 Hyperkalemia; N18.9 Chronic kidney disease, unspecified; F03.90 Unspecified dementia, unspecified severity, without behavioral disturbance, psychotic disturbance, mood disturbance, and anxiety; I48.2 Chronic atrial fibrillation; E86.0 Dehydration
CPT/HCPCS: 36415; 36600; 74022; 74176; 80048; 80053; 80162; 81001; 82140; 82803; 83690; 84484; 85025; 85610; 85730; 87040; 93005; 93010; G0378; J0282; J1644; J1956; J2270; J2405; J7030; J7060; Q0162